=== PATIENT | female | born 1965 | race Caucasian/White ===

== ENCOUNTER 2017-03-28 19:06 | Emergency (ER) | payer OTHER ==
[~2017-03-28] VITALS: Ht 175.3 cm; Wt 127.3 kg
[~2017-03-28 19:06] MED LIST: ALLEGRA180 MG PO; AMITRIPTYLINE25 MG PO; CELEXA40 MG PO; FLONASE0.05 MG/AC NS; IRON; LISINOPRIL10 MG PO; LOESTRIN FE 1/21 TAB PO; MELOXICAM15 MG PO; MULTIPLE VITAMI1 CAP PO; NORCO 325 MG-7.1 TAB PO; PERCOCET 325 MG1 TA2 PO; PROMETHAZINE12.5 M5 PO; TORADOL 10MG TA10 MG PO; VI-C1 CAP PO; VIT D
[2017-03-28] MEDS ORDERED: TOPROL XL 25MG25 MG PO (19:14)
[2017-03-28] MEDS ORDERED: AMITRIPTYLINE H10 M1 PO (19:14)
[2017-03-28] MEDS ORDERED: TOPAMAX 25MG25 M1 PO (19:15)
[2017-03-28] MEDS ORDERED: ZOFRAN 4MG T4 MG/TAB PO (19:15)
[2017-03-28] MEDS ORDERED: CYMBALTA 20MG20 MG PO (19:15)
[2017-03-28] MEDS ORDERED: XANAX .25M0.25 MG/TA PO (19:16)
[2017-03-28] MEDS ORDERED: MOBIC15 MG PO (19:33)
[2017-03-28 19:44] LABS: BASO % 0.2 % (0.0-2.0); EOS # 0.2 (0.0-0.7); EOS % 0.9 % (0-4.0); GRAN # 11.3 (1.4-6.5); GRAN % 65.1 % (42.2-75.2); HEMATOCRIT 49.1 % (37.0-47.0); HEMOGLOBIN 16.3 g/dl (12.5-16.0); LYMPH # 4.5 (1.2-3.4); LYMPH % 25.9 % (20.0-51.0); MEAN CELL VOLUME 89 fl (80.0-100.0); MEAN CORPUSCULAR HEMOGLOBIN 30 pg (27.0-31.0); MEAN CORPUSCULAR HGB CONC 33 g/dl (33.0-37.0); MEAN PLATELET VOLUME 9.7 fl (7.4-10.4); MONO # 1.3 (0.1-0.6); MONO % 7.4 % (1.7-9.3); PLATELET COUNT 361 K/mm3 (130-400); RED BLOOD COUNT 5.53 M/mm3 (4.10-5.30); REDCELL DISTRIBUTION WIDTH-CV 13.2 % (11.5-14.5)
[2017-03-28 19:56] LABS: ALBUMIN 4.9 gm/dL (3.5-5.0); BILIRUBIN,TOTAL 0.9 mg/dL (0.0-1.0); C-REACTIVE PROTEIN 3.3 mg/dL (0.0-0.9); CALCIUM 9.8 mg/dL (8.4-10.2); CREATININE, serum 0.84 mg/dL (0.52-1.25); TOTAL PROTEIN 8.1 gm/dL (6.4-8.2)
[2017-03-28] MEDS ORDERED: NORCO 325 MG-51 TAB PO (21:15)
[2017-03-28 22:38] LABS: COLLECTION METHOD CLEAN CATCH
[2017-03-28 22:49] LABS: HYALINE CAST >12 /lpf; MUCOUS Present /lpf; PH 5 (5-8); SQUAMOUS EPITHELIAL 0-2 /hpf; URINE APPEARANCE Clear; URINE BACTERIA None Seen /hpf; URINE BILIRUBIN Negative (NEGATIVE); URINE BLOOD 3+ (NEGATIVE); URINE CALCIUM OXALATE CRYSTAL Present /hpf; URINE COLOR Yellow; URINE GLUCOSE Negative (NEGATIVE); URINE KETONE Negative (NEGATIVE); URINE LEUKOCYTE ESTERASE Negative (NEGATIVE); URINE NITRATE Negative (NEGATIVE); URINE PROTEIN(semi-quant) Negative (NEGATIVE); URINE RBC >50 /hpf; URINE UROBILINOGEN Negative (NEGATIVE)
[2017-03-28 23:16] VITALS: BP 140/98; PULSE 77; TEMP 97.2
== END 2017-03-28 23:23 | disposition home or self-care (01) ==
LOC: COL.ER 19:06
PROVIDERS: Family Medicine
DX: N20.1 Calculus of ureter (principal); I10 Essential (primary) hypertension; F17.210 Nicotine dependence, cigarettes, uncomplicated; Z87.442 Personal history of urinary calculi
CPT/HCPCS: J1170; J1885; J2405; J7030; Q9967

== ENCOUNTER 2017-04-21 17:45 | Emergency (ER) | payer OTHER ==
[~2017-04-21] VITALS: Ht 175.3 cm; Wt 125.0 kg
[~2017-04-21 17:45] MED LIST changes: +AMITRIPTYLINE H10 M1 PO; +CYMBALTA 20MG20 MG PO; +MOBIC15 MG PO; +NORCO 325 MG-51 TAB PO; +TOPAMAX 25MG25 M1 PO; +TOPROL XL 25MG25 MG PO; +XANAX .25M0.25 MG/TA PO; +ZOFRAN 4MG T4 MG/TAB PO
[2017-04-21 17:55] VITALS: BP 196/106; TEMP 98.1
[2017-04-21 18:27] LABS: BASO % 0.3 % (0.0-2.0); EOS # 0.4 (0.0-0.7); GRAN # 6.8 (1.4-6.5); GRAN % 56.8 % (42.2-75.2); HEMATOCRIT 48.5 % (37.0-47.0); HEMOGLOBIN 15.5 g/dl (12.5-16.0); LYMPH # 3.8 (1.2-3.4); LYMPH % 32.1 % (20.0-51.0); MEAN CELL VOLUME 90 fl (80.0-100.0); MEAN CORPUSCULAR HEMOGLOBIN 29 pg (27.0-31.0); MEAN CORPUSCULAR HGB CONC 32 g/dl (33.0-37.0); MEAN PLATELET VOLUME 9.9 fl (7.4-10.4); MONO # 0.9 (0.1-0.6); MONO % 7.5 % (1.7-9.3); PLATELET COUNT 314 K/mm3 (130-400); RED BLOOD COUNT 5.39 M/mm3 (4.10-5.30); REDCELL DISTRIBUTION WIDTH-CV 13.6 % (11.5-14.5)
[2017-04-21 18:41] LABS: ALBUMIN 4.3 gm/dL (3.5-5.0); BILIRUBIN,TOTAL 0.6 mg/dL (0.0-1.0); CALCIUM 9.4 mg/dL (8.4-10.2); CREATININE, serum 0.75 mg/dL (0.52-1.25); POTASSIUM 4.1 mmol/L (3.4-5.0); TOTAL PROTEIN 7.3 gm/dL (6.4-8.2)
[2017-04-21 20:01] LABS: COLLECTION METHOD CLEAN CATCH
[2017-04-21 20:08] LABS: MUCOUS Present /lpf; PH 5 (5-8); SQUAMOUS EPITHELIAL 0-2 /hpf; URINE APPEARANCE Hazy; URINE BACTERIA None Seen /hpf; URINE BILIRUBIN Negative (NEGATIVE); URINE BLOOD 3+ (NEGATIVE); URINE COLOR Amber; URINE GLUCOSE Negative (NEGATIVE); URINE KETONE Negative (NEGATIVE); URINE LEUKOCYTE ESTERASE Trace (NEGATIVE); URINE NITRATE Negative (NEGATIVE); URINE PROTEIN(semi-quant) 1+ (NEGATIVE); URINE RBC >50 /hpf
[2017-04-21] MEDS ORDERED: OMNICEF 300MG300 MG PO (20:20)
[2017-04-21] MEDS ORDERED: PHENERGAN 25 TA25 MG PO (20:41)
[2017-04-21] MEDS ORDERED: NORCO 325 MG-51 TAB PO (20:41)
[2017-04-21] MEDS ORDERED: ZOFRAN ODT4 MG PO (20:41)
[2017-04-21 20:57] VITALS: PULSE 65
== END 2017-04-21 20:59 | disposition home or self-care (01) ==
LOC: COL.ER 17:45
PROVIDERS: Physician Assistant
DX: N39.0 Urinary tract infection, site not specified (principal); I10 Essential (primary) hypertension; F32.9 Major depressive disorder, single episode, unspecified; Z87.39 Personal history of other diseases of the musculoskeletal system and connective tissue; Z87.442 Personal history of urinary calculi
CPT/HCPCS: J0696; J1170; J2405; J7030

== ENCOUNTER 2017-05-15 00:07 | Emergency (ER) | payer OTHER ==
[~2017-05-15] VITALS: Ht 175.3 cm; Wt 125.0 kg
[~2017-05-15 00:07] MED LIST changes: +OMNICEF 300MG300 MG PO; +PHENERGAN 25 TA25 MG PO; +ZOFRAN ODT4 MG PO
[2017-05-15 00:09] VITALS: BP 111/48; TEMP 97.6
[2017-05-15 00:24] LABS: BASO # 0.1 (0.0-0.2); BASO % 0.3 % (0.0-2.0); EOS % 0.2 % (0-4.0); GRAN # 15.7 (1.4-6.5); GRAN % 81.7 % (42.2-75.2); HEMATOCRIT 50.4 % (37.0-47.0); HEMOGLOBIN 16.5 g/dl (12.5-16.0); LYMPH # 2.3 (1.2-3.4); LYMPH % 11.7 % (20.0-51.0); MEAN CELL VOLUME 89 fl (80.0-100.0); MEAN CORPUSCULAR HEMOGLOBIN 29 pg (27.0-31.0); MEAN CORPUSCULAR HGB CONC 33 g/dl (33.0-37.0); MONO # 1.1 (0.1-0.6); MONO % 5.7 % (1.7-9.3); PLATELET COUNT 338 K/mm3 (130-400); RED BLOOD COUNT 5.65 M/mm3 (4.10-5.30); REDCELL DISTRIBUTION WIDTH-CV 13.6 % (11.5-14.5)
[2017-05-15 00:36] LABS: ALBUMIN 4.7 gm/dL (3.5-5.0); BILIRUBIN,TOTAL 0.6 mg/dL (0.0-1.0); C-REACTIVE PROTEIN 1.4 mg/dL (0.0-0.9); CALCIUM 9.7 mg/dL (8.4-10.2); CREATININE, serum 0.68 mg/dL (0.52-1.25); POTASSIUM 4.5 mmol/L (3.4-5.0); TOTAL PROTEIN 7.9 gm/dL (6.4-8.2)
[2017-05-15] MEDS ORDERED: PHENERGAN 25 TA25 MG PO (01:59)
[2017-05-15 03:00] LABS: COLLECTION METHOD CLEAN CATCH
[2017-05-15 03:07] LABS: MUCOUS Present /lpf; PH 5 (5-8); URINE APPEARANCE Clear; URINE BACTERIA None Seen /hpf; URINE BILIRUBIN Negative (NEGATIVE); URINE BLOOD Negative (NEGATIVE); URINE COLOR Yellow; URINE GLUCOSE Negative (NEGATIVE); URINE KETONE Negative (NEGATIVE); URINE LEUKOCYTE ESTERASE Negative (NEGATIVE); URINE NITRATE Negative (NEGATIVE); URINE PROTEIN(semi-quant) 1+ (NEGATIVE); URINE UROBILINOGEN Negative (NEGATIVE)
[2017-05-15 04:05] VITALS: PULSE 72
[2017-05-15] MEDS ORDERED: FLEXERIL 1010 MG/TAB PO (04:07)
== END 2017-05-15 04:05 | disposition home or self-care (01) ==
LOC: COL.ER 00:07
PROVIDERS: Physician Assistant
DX: K63.89 Other specified diseases of intestine (principal); R10.9 Unspecified abdominal pain; Z87.442 Personal history of urinary calculi
CPT/HCPCS: J1170; J1885; J2360; J2405; J2550; J3010; J7030; Q9967

== ENCOUNTER → 2018-08-17 | Outpatient (CLI) | payer OTHER ==
[~2018-08-17] MED LIST changes: +FLEXERIL 1010 MG/TAB PO
== END ==
LOC: MC.RAD 12:56
DX: Z12.31 Encounter for screening mammogram for malignant neoplasm of breast (principal)

== ENCOUNTER → 2018-08-31 | Outpatient (CLI) | payer OTHER ==
[~2018-08-31] VITALS: Ht 175.3 cm; Wt 125.1 kg
[~2018-08-31] MED LIST changes: +AMITRIPTYLINE H50 M1 PO; +BENADRYL25 M2 PO; +CYMBALTA 60MG60 MG PO; +KAPSPARGO SPRIN50 MG PO; +LEVSIN0.125 M1 PO; +MAG-OX 400400 MG/TAB PO; +NORCO 325 MG-101 TAB PO; +PEPCID 20MG TAB20 MG PO; +PRINZIDE 12.5 M1 TAB PO; +SENNA-S 50 MG-81 TAB PO; +TUMS ULTRA1000 MG PO
[2018-08-31 09:47] VITALS: BP 183/90; PULSE 75
[2018-08-31 11:15] VITALS: BP 155/91; PULSE 71
--- NOTE | 2018-08-31 11:45 | NUR ---
WENT OVER DC INSTRUCTIONS AGAIN WITH PT. AMBULATED TO LOBBY USING HER CANE. PT DROVE HERSELF HOME
== END ==
LOC: COL.RAD 09:04
DX: E04.1 Nontoxic single thyroid nodule (principal)

== ENCOUNTER 2019-03-17 15:06 | Emergency (ER) | payer OTHER ==
[~2019-03-17] VITALS: Ht 175.3 cm; Wt 122.7 kg
[2019-03-17 15:11] VITALS: BP 135/91; TEMP 98.9
[2019-03-17 16:11] LABS: HEMATOCRIT 50.3 % (37.0-47.0); HEMOGLOBIN 16.7 g/dl (12.5-16.0); MEAN CELL VOLUME 91 fl (80.0-100.0); MEAN CORPUSCULAR HEMOGLOBIN 30 pg (27.0-31.0); MEAN CORPUSCULAR HGB CONC 33 g/dl (33.0-37.0); MEAN PLATELET VOLUME 9.8 fl (7.4-10.4); PLATELET COUNT 384 K/mm3 (130-400); RED BLOOD COUNT 5.56 M/mm3 (4.10-5.30); REDCELL DISTRIBUTION WIDTH-CV 12.8 % (11.5-14.5)
[2019-03-17 16:21] LABS: ALBUMIN 4.1 gm/dL (3.5-5.0); BILIRUBIN,TOTAL 0.7 mg/dL (0.0-1.0); C-REACTIVE PROTEIN 2.9 mg/dL (0.0-0.9); CALCIUM 9.4 mg/dL (8.4-10.2); CREATININE, serum 0.79 (0.52-1.25); POTASSIUM 3.5 mmol/L (3.4-5.0); TOTAL PROTEIN 7.3 gm/dL (6.4-8.2)
[2019-03-17] MEDS ORDERED: MASON NATURAL2000 IU (16:28)
[2019-03-17 16:43] LABS: BAND 3 % (0-10); LYMPHOCYTE 18 % (20.0-51.0); NEUTROPHILS 76 % (42.0-75.2); PLATELET ESTIMATE NORMAL (NORMAL)
[2019-03-17 17:04] LABS: COLLECTION METHOD CLEAN CATCH
[2019-03-17 17:18] LABS: MUCOUS Present /lpf; PH 7 (5-8); SQUAMOUS EPITHELIAL 0-2 /hpf; URINE APPEARANCE Hazy; URINE BACTERIA None Seen /hpf; URINE BILIRUBIN Negative (NEGATIVE); URINE BLOOD 1+ (NEGATIVE); URINE COLOR Yellow; URINE GLUCOSE Negative (NEGATIVE); URINE KETONE Negative (NEGATIVE); URINE LEUKOCYTE ESTERASE Negative (NEGATIVE); URINE NITRATE Negative (NEGATIVE); URINE PROTEIN(semi-quant) 1+ (NEGATIVE); URINE RBC 0-2 /hpf; URINE UROBILINOGEN Negative (NEGATIVE)
[2019-03-17] MEDS ORDERED: PHENERGAN 25 TA25 MG PO (17:55)
[2019-03-17] MEDS ORDERED: AMOXICILLIN 8751 TAB PO (17:55)
[2019-03-17] MEDS ORDERED: ZOFRAN 4MG T4 MG/TAB PO (17:55)
[2019-03-17 18:30] VITALS: PULSE 105
== END 2019-03-17 18:36 | disposition home or self-care (01) ==
LOC: COL.ER 15:06
PROVIDERS: Emergency Medicine
DX: K57.32 Diverticulitis of large intestine without perforation or abscess without bleeding (principal); C73 Malignant neoplasm of thyroid gland; I10 Essential (primary) hypertension; K21.9 Gastro-esophageal reflux disease without esophagitis; M79.7 Fibromyalgia; G43.909 Migraine, unspecified, not intractable, without status migrainosus; G25.0 Essential tremor; E66.9 Obesity, unspecified; F17.210 Nicotine dependence, cigarettes, uncomplicated; Z68.39 Body mass index [BMI] 39.0-39.9, adult; Z85.850 Personal history of malignant neoplasm of thyroid; Z87.442 Personal history of urinary calculi; Z87.19 Personal history of other diseases of the digestive system
CPT/HCPCS: J2270; J2405; J7030; Q9967

== ENCOUNTER 2020-01-28 07:30 | Inpatient (IN) | payer OTHER ==
[~2020-01-28] VITALS: Ht 175.3 cm; Wt 128.1 kg
[2020-01-28] VITALS (426 sets, daily range): BP systolic 108–142; BP diastolic 69–95; PULSE 108–140; TEMP 98–98.7; O2SAT 87–100
[~2020-01-28 07:30] MED LIST changes: +AMOXICILLIN 8751 TAB PO; +MASON NATURAL2000 IU
[2020-01-28 07:54] LABS: BASO # 0.1 (0.0-0.2); BASO % 0.3 % (0.0-2.0); EOS # 0.1 (0.0-0.7); EOS % 0.9 % (0-4.0); GRAN % 61.4 % (42.2-75.2); HEMATOCRIT 47.3 % (37.0-47.0); HEMOGLOBIN 15.5 g/dl (12.5-16.0); LYMPH # 4.3 (1.2-3.4); LYMPH % 29.2 % (20.0-51.0); MEAN CELL VOLUME 91 fl (80.0-100.0); MEAN CORPUSCULAR HEMOGLOBIN 30 pg (27.0-31.0); MEAN CORPUSCULAR HGB CONC 33 g/dl (33.0-37.0); MEAN PLATELET VOLUME 10.5 fl (7.4-10.4); MONO # 1.2 (0.1-0.6); MONO % 7.9 % (1.7-9.3); PLATELET COUNT 312 K/mm3 (130-400); RED BLOOD COUNT 5.19 M/mm3 (4.10-5.30); REDCELL DISTRIBUTION WIDTH-CV 13.7 % (11.5-14.5)
[2020-01-28 08:07] LABS: ALBUMIN 4.8 gm/dL (3.5-5.0); BILIRUBIN,TOTAL 1.1 mg/dL (0.0-1.0); C-REACTIVE PROTEIN 2.6 mg/dL (0.0-0.9); CALCIUM 9.7 mg/dL (8.4-10.2); CREATININE, serum 0.82 (0.52-1.25); POTASSIUM 3.3 mmol/L (3.4-5.0); TOTAL PROTEIN 8.1 gm/dL (6.4-8.2)
[2020-01-28 11:04] LABS: COLLECTION METHOD CLEAN CATCH
[2020-01-28 11:57] LABS: MUCOUS Present /lpf; PH 6 (5-8); SQUAMOUS EPITHELIAL 0-2 /hpf; URINE APPEARANCE Clear; URINE BACTERIA None Seen /hpf; URINE BILIRUBIN Negative (NEGATIVE); URINE BLOOD 3+ (NEGATIVE); URINE COLOR Yellow; URINE GLUCOSE Negative (NEGATIVE); URINE KETONE Trace (NEGATIVE); URINE LEUKOCYTE ESTERASE Negative (NEGATIVE); URINE NITRATE Negative (NEGATIVE); URINE PROTEIN(semi-quant) 1+ (NEGATIVE); URINE RBC >50 /hpf
--- NOTE | 2020-01-28 13:37 | NUR ---
PT ARRIVED TO ICU 2 FROM ED WITH AFIB RVR. PT TRANSFERED TO BED. PT SHOWING AFIB 130'S ON MONTIOR. OTHER VITALS STABLE. PT HAS DILT RUNNING AT 15ML/HR AND HEPARIN RUNNING AT 10ML/HR. PT DENIES CP OR PALPATATIONS. PT ORIENTED TO ROOM AND FLOOR. PT INSTURCTED TO CALL WITH ALL NEEDS. WILL CONTINUE TO MONITOR.
[2020-01-28] MEDS ORDERED: COLACE 100100 MG/CAP PO (13:41)
--- NOTE | 2020-01-28 13:55 | NUR ---
1350: NOTIFIED OF ARRIVAL. NOTIFIED OF HR 120-140 OTHER VSS. INSTRUCTED TO NOTIFY . 1355: NOTIFIED OF HR. ORDERS RECEIVED FOR IV DIGOXIN.
[2020-01-29] VITALS (969 sets, daily range): BP systolic 109–147; BP diastolic 66–106; PULSE 82–109; TEMP 97.9–98.4; O2SAT 67–100
--- NOTE | 2020-01-29 05:08 | NUR ---
PT IN BED. HEART RATE IRREGULAR. LUNGS CLEAR THOUGH PT SEEMS TO GET DYSPNEIC EASILY. HEART RATE BELOW 100 bpm WHEN SLEEPING AND LESS THAN 100 bpm WHEN AWAKE OR MOVING.
[2020-01-29 09:00] LABS: BASO % 0.3 % (0.0-2.0); EOS # 0.1 (0.0-0.7); EOS % 1.2 % (0-4.0); GRAN # 5.4 (1.4-6.5); GRAN % 56.3 % (42.2-75.2); HEMATOCRIT 41.5 % (37.0-47.0); LYMPH # 3.3 (1.2-3.4); MEAN CELL VOLUME 92 fl (80.0-100.0); MEAN CORPUSCULAR HEMOGLOBIN 29 pg (27.0-31.0); MEAN CORPUSCULAR HGB CONC 32 g/dl (33.0-37.0); MEAN PLATELET VOLUME 10.4 fl (7.4-10.4); MONO # 0.8 (0.1-0.6); MONO % 7.9 % (1.7-9.3); PLATELET COUNT 229 K/mm3 (130-400)
[2020-01-29 09:01] LABS: HEMOGLOBIN 13.2 g/dl (12.5-16.0)
[2020-01-29 09:13] LABS: CALCIUM 8.7 mg/dL (8.4-10.2); CREATININE, serum 0.71 (0.52-1.25); POTASSIUM 3.6 mmol/L (3.4-5.0)
--- NOTE | 2020-01-29 09:40 | NUR ---
PT heparin level 0.38 which is with in goal range. No changes to the heparin drip will be made at this time.
--- NOTE | 2020-01-29 11:25 | NUR ---
SW met with patient to complete intake. Patient states that she lives alone. Patient provides that she does utilize a cane for walking, and is independent with ADL's, PCP is Dr. River, pharmacy is [facility], and is able to afford her medications. Patient provides that she does not have DPOA-HC and does not wish to appoint anyone at this time. Patient provided that she would like to only have her friend Vianney [phone] if there is any emergency. Patient YESIKA will continue to follow. SW met with nurse and nurse provided that patient will be having a procedure tomorrow.
[2020-01-29 15:31] LABS: HEMATOCRIT 35.1 % (37.0-47.0); HEMOGLOBIN 11.1 g/dl (12.5-16.0)
--- NOTE | 2020-01-29 16:06 | NUR ---
PT heparin result is 0.31 not requiring any titration at this time due to being at "goal". Will recheck at 2100.
--- NOTE | 2020-01-29 20:00 | NUR ---
PT HAVING 10/10 LLQ PAIN, PRN MORPHINE GIVEN AT THIS TIME.
--- NOTE | 2020-01-29 20:09 | NUR ---
2005: PT NAUSEOUS FROM PAIN IN LLQ, PRN ZOFRAN GIVEN. PT EMESIS X2, SMALL AMOUNT OF PHLEGM NOTED TO BASIN. 2099: PT CONTINUES TO HAVE 10/10 LLQ PAIN. PRN DILUADID GIVEN. 2199: PT RESTING IN BED AT THIS TIME WITH EYES CLOSED.
[2020-01-30] VITALS (846 sets, daily range): BP systolic 129–157; BP diastolic 74–114; PULSE 62–108; TEMP 97.5–98.5; O2SAT 73–100
--- NOTE | 2020-01-30 04:59 | NUR ---
LAB CALLED GALDINO BRISENO NOT DRAWN FOR 399, LAB WILL BE DOWN TO DRAW
[2020-01-30 05:49] LABS: BASO % 0.2 % (0.0-2.0); EOS # 0.1 (0.0-0.7); EOS % 1.2 % (0-4.0); GRAN # 5.8 (1.4-6.5); GRAN % 60.9 % (42.2-75.2); HEMATOCRIT 40.6 % (37.0-47.0); LYMPH # 2.6 (1.2-3.4); LYMPH % 27.4 % (20.0-51.0); MEAN CELL VOLUME 94 fl (80.0-100.0); MEAN CORPUSCULAR HEMOGLOBIN 30 pg (27.0-31.0); MEAN CORPUSCULAR HGB CONC 32 g/dl (33.0-37.0); MEAN PLATELET VOLUME 10.8 fl (7.4-10.4); MONO # 0.9 (0.1-0.6); MONO % 9.9 % (1.7-9.3); PLATELET COUNT 196 K/mm3 (130-400); RED BLOOD COUNT 4.34 M/mm3 (4.10-5.30); REDCELL DISTRIBUTION WIDTH-CV 13.8 % (11.5-14.5)
[2020-01-30 06:04] LABS: CALCIUM 8.6 mg/dL (8.4-10.2); CREATININE, serum 0.57 (0.52-1.25); POTASSIUM 3.9 mmol/L (3.4-5.0)
--- NOTE | 2020-01-30 14:56 | NUR ---
Report called to SHANKAR Atwood
--- NOTE | 2020-01-30 15:00 | NUR ---
Pt transferred to floor by ICU nurse. Oriented to room, wants to rest and take a nap, denies needs, will continue to monitor.
--- NOTE | 2020-01-30 19:08 | NUR ---
Pt has rested over shift, resting in bed, denies needs, will give bedside shift report to nightshift nurse who will resume care.
[2020-01-31] VITALS (12 sets, daily range): BP systolic 129–164; BP diastolic 82–106; PULSE 70–121; TEMP 97.4–98.4
--- NOTE | 2020-01-31 00:23 | NUR ---
Pt resting in bed, assessment completed and medications given per MAY. pt reporting pain in the lower back and left side rating an 8 out of 10. gave norco prn. pain did not improve and pt felt it was hard to breathe from the pain. oxygen sat 95% on room air, gave diludid prn for pain. lung sounds are clear in all lobes. heart sounds are regular and normal sinus on tele. pt has urinated small amount, strained and no stone present. no other needs at this time, will continue to monitor.
--- NOTE | 2020-01-31 06:24 | NUR ---
pt reporting pain throughout the night, mostly on the left side and lower back. gave diludid and norco prn per MAY. started heparin drip via orders and protocol. pt voided during the night, urine strained and no stone present. no other needs at this time, will continue to monitor.
--- NOTE | 2020-01-31 08:00 | NUR ---
Shift assessment completed. Telemetry on, AR regular. Rt forearm IV, NS @ 75mL/hr, Heparin 16.5mg. Pt reports pain 9/10 to left flank. BP 164/100, reported to primary nurse. Pt voided 600mL, dark yellow, no stones strained.
--- NOTE | 2020-01-31 08:00 | NUR ---
pt assessment completed and charted, medications administered per may. Pt A&O, independent in room, on room air, breathing is labored, reports SOB d/t pain. Pt rating pain 10/10 to Lt sd radiating to mid back. PRN norco and dilaudid administered per may. Pt has RWR IV w/ NS @ 75ml/hr and hep gtt @ 16.5 ml/hr. LS cta, pulses strong bilaterally, BS active, pt has been NPO for procedure.
--- NOTE | 2020-01-31 09:13 | NUR ---
Initial visit; Patient thanked Auto Fleet Maintenance Manager for looking in on her and keeping her in Auto Fleet Maintenance Manager's prayers.
[2020-01-31 09:27] LABS: BASO % 0.2 % (0.0-2.0); EOS # 0.2 (0.0-0.7); EOS % 2.2 % (0-4.0); GRAN # 7.6 (1.4-6.5); GRAN % 68.7 % (42.2-75.2); HEMOGLOBIN 13.3 g/dl (12.5-16.0); LYMPH # 2.2 (1.2-3.4); LYMPH % 20.1 % (20.0-51.0); MEAN CELL VOLUME 94 fl (80.0-100.0); MEAN CORPUSCULAR HEMOGLOBIN 30 pg (27.0-31.0); MEAN CORPUSCULAR HGB CONC 32 g/dl (33.0-37.0); MEAN PLATELET VOLUME 10.5 fl (7.4-10.4); MONO # 0.9 (0.1-0.6); MONO % 8.5 % (1.7-9.3); PLATELET COUNT 210 K/mm3 (130-400); RED BLOOD COUNT 4.45 M/mm3 (4.10-5.30); REDCELL DISTRIBUTION WIDTH-CV 13.8 % (11.5-14.5)
--- NOTE | 2020-01-31 09:30 | NUR ---
Pt down for procedure at this time, pt was not ready d/t procedure originally being scheduled for 1629.
[2020-01-31 09:35] LABS: CREATININE, serum 0.64 (0.52-1.25); POTASSIUM 4.2 mmol/L (3.4-5.0)
[2020-01-31] MEDS ORDERED: PYRIDIUM 100MG100 MG PO (09:42)
[2020-01-31 10:36] LABS: INR 1.2 (0.8-3.0)
--- NOTE | 2020-01-31 11:00 | NUR ---
Pt arrived to room, assisted to the bathroom voided 200mL gross hematuria. Urine strained, no stones found. Pt assisted to bed pt reports 07/30 to the LLQ of abdomen. Post op routine vital signs initiated. Reporting off to primary nurse. O2 on 2L per N/C.
--- NOTE | 2020-01-31 11:04 | NUR ---
Pt back from cysto procedure, post op vitals monitoring in progress. Pt A&O.
--- NOTE | 2020-01-31 13:33 | NUR ---
Pt using bedside commode, crying in pain, [place] PRN administered per may. Discussed w/ Dr. Waite who will review meds. Pt describes pain as "I feel like I'm being stabbed". Will continue to monitor.
--- NOTE | 2020-01-31 14:30 | NUR ---
This nurse contacted HAMAMD Norris and Dr. Waite again about pts pain. pt sitting on EOB, rocking back and forth and moaning. Toradol added to MAR, administered, per pt "Toradol usually helps". Will continue to monitor.
--- NOTE | 2020-01-31 15:40 | NUR ---
Pt laying in bed, states pain is still there but is feeling a little better. Pt no longer moaning or rocking back and forth. Pt appears to be more calm, rating pain 8/10.
--- NOTE | 2020-01-31 20:00 | NUR ---
PT IS RESTING IN BED DURING BEDSIDE SHIFT REPORT. PT DENIES NEEDS AT THIS TIME. ASSESSMENT COMPLETED. PT'S VSS STABLE. PAIN IS "CREEPING" UP AGAIN AT THIS TIME. INFORMED PT TO USE CALL LIGHT AND LET ME KNOW WHEN SHE WILL NEED PAIN MANAGEMENT. NO FURTHER CONCERNS AT THIS TIME. WILL CONTINUE TO MONITOR. PT CALL LIGHT WITHIN REACH.
[2020-02-01 03:19] VITALS: BP 157/68; PULSE 117; TEMP 98.3
[2020-02-01 06:09] LABS: BASO % 0.2 % (0.0-2.0); EOS # 0.1 (0.0-0.7); EOS % 0.6 % (0-4.0); GRAN % 72.1 % (42.2-75.2); HEMATOCRIT 40.8 % (37.0-47.0); HEMOGLOBIN 12.9 g/dl (12.5-16.0); LYMPH # 1.8 (1.2-3.4); LYMPH % 16.1 % (20.0-51.0); MEAN CELL VOLUME 94 fl (80.0-100.0); MEAN CORPUSCULAR HEMOGLOBIN 30 pg (27.0-31.0); MEAN CORPUSCULAR HGB CONC 32 g/dl (33.0-37.0); MONO # 1.2 (0.1-0.6); MONO % 10.7 % (1.7-9.3); PLATELET COUNT 190 K/mm3 (130-400); RED BLOOD COUNT 4.33 M/mm3 (4.10-5.30); REDCELL DISTRIBUTION WIDTH-CV 13.4 % (11.5-14.5)
[2020-02-01 06:22] LABS: CALCIUM 8.8 mg/dL (8.4-10.2); CREATININE, serum 0.76 (0.52-1.25); MAGNESIUM 1.8 mg/dL (1.6-2.3); POTASSIUM 3.9 mmol/L (3.4-5.0)
[2020-02-01 06:31] LABS: INR 1.3 (0.8-3.0); PROTHROMBIN TIME 15.1 SECONDS (9.7-12.8)
[2020-02-01 07:06] VITALS: BP 128/78; PULSE 119; TEMP 98.7
--- NOTE | 2020-02-01 08:33 | NUR ---
pt assessment completed and charted, medications administered per may. Pt laying in bed, appeared calm upon entry. Pt started to moan and cry more while this nurse was in the room. Pt requesting pain medication, rating pain 7/10 "jumping to an 8", described as sharp and radiating from left side to left mid back. [place] PRN administered per may. LS cta, Heart irregular, pt back in afib, tachy. Pulses strong bilaterally, BS active X4, no edema noted. RWR INT IV flushes, minimal drainage noted but flushes well. No further needs at this time.
[2020-02-01 11:13] VITALS: BP 127/71; BP 97/71; PULSE 85; TEMP 98.4
--- NOTE | 2020-02-01 11:28 | NUR ---
Sotalol dose increased d/t pt converting back to afib, administered per may. Pt laying in bed, appears calm, minimal pain. Currently rating pain at 5/10, denies need for pain medication at this time. Call light within reach.
--- NOTE | 2020-02-01 11:51 | NUR ---
Front Desk Attendant attended clinical rounds with the team and patient is not ready for discharge today. SW met with patient who plans to return home upon discharge. YESIKA spoke with RN, Elise who advised patient has been independent in her room. SW will continue to follow.
[2020-02-01 15:28] VITALS: BP 114/88; PULSE 137; TEMP 98
--- NOTE | 2020-02-01 18:32 | NUR ---
1545: pt called, rating pain 6/10 d/t her getting up and going to the bathroom. Pt states she "is having some twinge of pain". [place] PRN administered per may. Pt appears to be doing much better today and pain control is much better today that yesterday. Warm compress has been used off and on throughout day as well.
[2020-02-01 22:02] VITALS: BP 126/77; PULSE 139; TEMP 98.5
[2020-02-02] VITALS (22 sets, daily range): BP systolic 126–169; BP diastolic 82–125; PULSE 53–147; TEMP 98.2–98.7
[2020-02-02 06:47] LABS: BASO % 0.1 % (0.0-2.0); EOS # 0.1 (0.0-0.7); EOS % 1.8 % (0-4.0); GRAN # 3.9 (1.4-6.5); GRAN % 52.1 % (42.2-75.2); HEMATOCRIT 40.4 % (37.0-47.0); HEMOGLOBIN 12.8 g/dl (12.5-16.0); LYMPH # 2.5 (1.2-3.4); LYMPH % 33.6 % (20.0-51.0); MEAN CELL VOLUME 94 fl (80.0-100.0); MEAN CORPUSCULAR HEMOGLOBIN 30 pg (27.0-31.0); MEAN CORPUSCULAR HGB CONC 32 g/dl (33.0-37.0); MEAN PLATELET VOLUME 11.2 fl (7.4-10.4); MONO # 0.9 (0.1-0.6); MONO % 12.1 % (1.7-9.3); PLATELET COUNT 224 K/mm3 (130-400); REDCELL DISTRIBUTION WIDTH-CV 13.8 % (11.5-14.5)
[2020-02-02 06:59] LABS: INR 1.3 (0.8-3.0); PROTHROMBIN TIME 14.9 SECONDS (9.7-12.8)
[2020-02-02 07:00] LABS: CALCIUM 8.8 mg/dL (8.4-10.2); CREATININE, serum 0.76 (0.52-1.25); MAGNESIUM 1.9 mg/dL (1.6-2.3); POTASSIUM 4.2 mmol/L (3.4-5.0)
--- NOTE | 2020-02-02 07:24 | NUR ---
Pt had uneventful night, only required pain medication twice. Pt will be having cardioversion today, no other concerns. Report given to SHANKAR Daniel and student.
--- NOTE | 2020-02-02 09:06 | NUR ---
PATIENT DOWN AT ADMINISTRATIVE REPRESENTATIVE
--- NOTE | 2020-02-02 13:38 | NUR ---
Primary nurse was assisted with [id number] patient care by [employer] student Beena Tony and [employer] instructor Nancy Melvin RN-.
--- NOTE | 2020-02-02 18:22 | NUR ---
PATIENT HAD AN EVENTFUL DAY. PATIENT'S BLOOD PRESSURE WAS VERY ELEVATED AND HER AFIB RATE WAS IN THE 140'S. DOCTORS WERE AWARE OF THIS AND ORDERED MEDICATIONS ACCORDINGLY. SHE WENT FOR A CARDIOVERSION THAT WAS ATTEMPTED TWICE AND NO LUCK WAS PERFORMED. PATIENTS BLOOD PRESSURE REMAINS ELEVATED AND DOCTORS ARE AWARE BUT ARE NOT GOING TO TRANSFER THE PATIENT TO ICU. PAIN MEDICATIONS WERE GIVEN TO THE PATIENT WHEN SHE WAS HAVING PAIN IN HER ABD THAT RADIATED TO HER SIDE. PAIN MEDICATIONS WERE GIVEN AND HELPED WITH HER PAIN. PATIENT IS NOW ON AMIODARONE INSTEAD OF SOTALOL. PATIENT'S URINE REMAINS BLOODY AT THIS TIME. UA WAS SENT TO LAB. PATIENT HAS REMAINED FREE OF HEADACHE, DIZZINESS, SHORTNESS OF BREATHE, AND CHEST PAIN. PATIENT IS RESTING IN HER BED AT THIS TIME. CALL LIGHT IN REACH. WILL REPORT OFF TO MOLD SPRAYER.
[2020-02-02 18:50] LABS: COLLECTION METHOD CLEAN CATCH
[2020-02-02 18:59] LABS: PH 6 (5-8); SQUAMOUS EPITHELIAL None Seen /hpf; URINE APPEARANCE Cloudy; URINE BACTERIA None Seen /hpf; URINE BILIRUBIN Negative (NEGATIVE); URINE BLOOD 3+ (NEGATIVE); URINE COLOR Amber; URINE GLUCOSE Negative (NEGATIVE); URINE KETONE Negative (NEGATIVE); URINE LEUKOCYTE ESTERASE Negative (NEGATIVE); URINE NITRATE Negative (NEGATIVE); URINE PROTEIN(semi-quant) 2+ (NEGATIVE); URINE RBC >50 /hpf
[2020-02-03] VITALS (7 sets, daily range): BP systolic 132–192; BP diastolic 75–130; PULSE 64–151; TEMP 98.3–99.1
[2020-02-03 07:17] LABS: BASO % 0.4 % (0.0-2.0); EOS # 0.1 (0.0-0.7); EOS % 2.4 % (0-4.0); GRAN # 3.8 (1.4-6.5); GRAN % 70.8 % (42.2-75.2); HEMATOCRIT 43.2 % (37.0-47.0); HEMOGLOBIN 13.8 g/dl (12.5-16.0); LYMPH # 0.7 (1.2-3.4); LYMPH % 13.4 % (20.0-51.0); MEAN CELL VOLUME 92 fl (80.0-100.0); MEAN CORPUSCULAR HEMOGLOBIN 29 pg (27.0-31.0); MEAN CORPUSCULAR HGB CONC 32 g/dl (33.0-37.0); MEAN PLATELET VOLUME 10.6 fl (7.4-10.4); MONO # 0.7 (0.1-0.6); MONO % 12.8 % (1.7-9.3); PLATELET COUNT 218 K/mm3 (130-400); REDCELL DISTRIBUTION WIDTH-CV 13.7 % (11.5-14.5)
[2020-02-03 07:29] LABS: INR 1.7 (0.8-3.0); PROTHROMBIN TIME 19.4 SECONDS (9.7-12.8)
[2020-02-03 07:32] LABS: CALCIUM 9.1 mg/dL (8.4-10.2); CREATININE, serum 0.72 (0.52-1.25); MAGNESIUM 1.9 mg/dL (1.6-2.3); POTASSIUM 4.2 mmol/L (3.4-5.0)
--- NOTE | 2020-02-03 07:54 | NUR ---
Pt had an uneventful night, however, diastolic bp did elevate to 123 just before 3AM. The hospitalist did order some hydralazine prn to assist in bringing that pressure down. Pt was given the hydralazine at 0405 and pressures still remain high. Cardiology was notified. Pt pain did increase so morphine was utilized. Report was given to SHANKAR Perdue who will continue the care of this patient.
--- NOTE | 2020-02-03 08:55 | NUR ---
Patient has had nausea and vomitting, still experiencing stomach pain. Will not be completing PFT today. John Phillip, COMMUNITY SPECIALIST
--- NOTE | 2020-02-03 10:47 | NUR ---
Pt awake upon entry, has C/O pain 10/10, medications were given for relief, shift assessment complete, left Pt call light in reach, bed in lowest position.
--- NOTE | 2020-02-03 13:25 | NUR ---
Primary nurse was assisted with [phone] patient care by [employer] student Beena Tony and [employer] instructor Nancy Melvin RN-.
--- NOTE | 2020-02-03 19:24 | NUR ---
Pt resting in the room, is having a hard time keeping her pain under control, have been alternating her morphene and norco to try and get better control best today 05/02, at shift change stated 08/30. no other issues / complaints today. VS have remained stable.
--- NOTE | 2020-02-03 20:20 | NUR ---
Pt assessment completed and documented. Pt resting in bed at this time. Alert and oriented x4. Complaints of left side pain that radiates to her back. Pt states pain is slowly getting better since surgery. PRN morphine given per orders. INT to right AC CDI. Pt denies any other needs/concerns. Call light within reach. Will continue to monitor
[2020-02-04] VITALS (7 sets, daily range): BP systolic 127–162; BP diastolic 70–103; PULSE 56–105; TEMP 98.9–99.9
--- NOTE | 2020-02-04 05:10 | NUR ---
Pt rested intermittently overnight. PRN morphine and norco given per orders for head, left side and left back pain. Pt currently resting in bed. Denies any needs/concerns. Call light within reach
--- NOTE | 2020-02-04 06:45 | NUR ---
REPORT GIVEN TO SHANKAR FISHMAN
[2020-02-04 06:50] LABS: BASO % 0.2 % (0.0-2.0); EOS % 0.5 % (0-4.0); GRAN # 3.9 (1.4-6.5); GRAN % 70.6 % (42.2-75.2); HEMATOCRIT 40.9 % (37.0-47.0); HEMOGLOBIN 13.2 g/dl (12.5-16.0); LYMPH # 0.7 (1.2-3.4); LYMPH % 12.7 % (20.0-51.0); MEAN CELL VOLUME 92 fl (80.0-100.0); MEAN CORPUSCULAR HEMOGLOBIN 30 pg (27.0-31.0); MEAN CORPUSCULAR HGB CONC 32 g/dl (33.0-37.0); MEAN PLATELET VOLUME 10.4 fl (7.4-10.4); MONO # 0.9 (0.1-0.6); MONO % 15.6 % (1.7-9.3); PLATELET COUNT 197 K/mm3 (130-400); RED BLOOD COUNT 4.44 M/mm3 (4.10-5.30); REDCELL DISTRIBUTION WIDTH-CV 13.7 % (11.5-14.5)
[2020-02-04 07:07] LABS: INR 2.3 (0.8-3.0); PROTHROMBIN TIME 25.5 SECONDS (9.7-12.8)
[2020-02-04 07:08] LABS: CALCIUM 8.7 mg/dL (8.4-10.2); CREATININE, serum 0.69 (0.52-1.25); MAGNESIUM 1.8 mg/dL (1.6-2.3); POTASSIUM 3.5 mmol/L (3.4-5.0)
--- NOTE | 2020-02-04 09:50 | NUR ---
Pt awake and alert has C/O pain, medications were given earlier, shift assessments complete, left Pt call light in reach, bed in lowest position.
--- NOTE | 2020-02-04 20:42 | NUR ---
PT IN BED WITH HOB ELEVATED TO 30 DEGREES, HAS C/O HEADACHE RATED AT 7/10. PT HAD PRN PAIN MEDICATION EARLIER NOT TIME YET. PT'S HEART RATE >120 GAVE IV METOPROLOL AND RECHECK PULSE WITH PULSE OX. PULSE WAS 87. ALSO HEART BEAT IRREGULAR. PT HAS NO FURTHER NEEDS AT THIS TIME, CALL LIGHT WITHIN REACH AND PERSONAL BELONGINGS.
[2020-02-05 04:28] VITALS: BP 143/104; PULSE 54; TEMP 98.2
[2020-02-05 05:55] LABS: GRAN # 2.7 (1.4-6.5); GRAN % 67.4 % (42.2-75.2); HEMATOCRIT 43.4 % (37.0-47.0); HEMOGLOBIN 14.1 g/dl (12.5-16.0); LYMPH # 0.9 (1.2-3.4); LYMPH % 23.4 % (20.0-51.0); MEAN CELL VOLUME 90 fl (80.0-100.0); MEAN CORPUSCULAR HEMOGLOBIN 29 pg (27.0-31.0); MEAN CORPUSCULAR HGB CONC 33 g/dl (33.0-37.0); MEAN PLATELET VOLUME 10.4 fl (7.4-10.4); MONO # 0.3 (0.1-0.6); MONO % 8.7 % (1.7-9.3); PLATELET COUNT 218 K/mm3 (130-400); REDCELL DISTRIBUTION WIDTH-CV 13.7 % (11.5-14.5)
[2020-02-05 06:00] LABS: INR 2.5 (0.8-3.0); PROTHROMBIN TIME 28.3 SECONDS (9.7-12.8)
[2020-02-05 06:06] LABS: CREATININE, serum 0.58 (0.52-1.25); POTASSIUM 3.9 mmol/L (3.4-5.0)
--- NOTE | 2020-02-05 07:22 | NUR ---
PT SLEPT FOR A WHILE DURING THE NIGHT WITHOUT ANY ISSUE. AROUND 0500 PT WAS AWAKENED AND HAD C/O PAIN. PAIN MEDICATION WAS GIVEN AND ABOUT AN HOUR LATER MORE PAIN MEDICATION GIVEN. PT SAID THAT SHE HAS NOT BEEN ABLE TO GET THE PAIN UNDER CONTROL. NO FURTHER NEEDS CALL LIGHT WITHIN REACH.
[2020-02-05 09:00] VITALS: BP 147/69; PULSE 73; TEMP 98.3
--- NOTE | 2020-02-05 09:50 | NUR ---
Pt awake and alert this morning, has C/O pain 5/10, tolerable. Shift assessments complete, left Pt call light in reach, bed in lowest position.
[2020-02-05 11:31] VITALS: BP 148/88; PULSE 78; TEMP 99.9
[2020-02-05 15:50] VITALS: BP 146/102; PULSE 77; TEMP 98.3
--- NOTE | 2020-02-05 19:00 | NUR ---
Pt resting in the room, currently on room air, has had C/o pain during the day and medications were given for relief with good results. no other issues noted. VS have remained stable.
[2020-02-05 19:59] VITALS: BP 122/94; PULSE 51; TEMP 97.6
--- NOTE | 2020-02-05 20:30 | NUR ---
Initial shift assessment done- states left flank pain 2/10 at this time- states she should be going home tomorrow and then will have an outpt cardioversion when covid is negative. tele on- afib,
[2020-02-05 23:16] VITALS: BP 121/75; PULSE 62; TEMP 97.4
[2020-02-06 05:04] VITALS: BP 130/70; PULSE 88; TEMP 98.2
--- NOTE | 2020-02-06 05:06 | NUR ---
Quiet night- medicated for pain x1 , no SOB, no fevers. VSS
[2020-02-06 07:19] LABS: BASO % 0.1 % (0.0-2.0); GRAN # 4.9 (1.4-6.5); GRAN % 63.7 % (42.2-75.2); HEMATOCRIT 43.4 % (37.0-47.0); HEMOGLOBIN 13.9 g/dl (12.5-16.0); LYMPH # 1.9 (1.2-3.4); LYMPH % 24.4 % (20.0-51.0); MEAN CELL VOLUME 91 fl (80.0-100.0); MEAN CORPUSCULAR HEMOGLOBIN 29 pg (27.0-31.0); MEAN CORPUSCULAR HGB CONC 32 g/dl (33.0-37.0); MEAN PLATELET VOLUME 10.2 fl (7.4-10.4); MONO # 0.9 (0.1-0.6); MONO % 11.3 % (1.7-9.3); PLATELET COUNT 231 K/mm3 (130-400); RED BLOOD COUNT 4.76 M/mm3 (4.10-5.30); REDCELL DISTRIBUTION WIDTH-CV 13.5 % (11.5-14.5)
[2020-02-06 07:27] LABS: CALCIUM 9.1 mg/dL (8.4-10.2); CREATININE, serum 0.7 (0.52-1.25); POTASSIUM 3.7 mmol/L (3.4-5.0)
[2020-02-06 07:38] LABS: INR 2.4 (0.8-3.0)
[2020-02-06 08:00] VITALS: BP 164/82; PULSE 94; TEMP 97.8
--- NOTE | 2020-02-06 09:51 | NUR ---
PT UP WITH ASSIST. REPORTING PAIN 7/10 TO LEFT FLANK, PO MEDS GIVEN ORDERED. PT ANXIOUS. VSS, MILD NAUSEA REPORTED IV ZOFRAN GIVEN PER ORDERS. PT IS CURRENTLY NPO. WILL CHECK WITH RICARDO CUEVA FOR REASON AND MAKE ADJUSTMENTS APPROPRIATE.
[2020-02-06 12:57] VITALS: BP 156/88; PULSE 110
[2020-02-06] MEDS ORDERED: AMOXICILLIN 8751 TAB PO (13:09)
[2020-02-06] MEDS ORDERED: COUMADIN 2MG2 MG/TAB PO (13:09)
[2020-02-06] MEDS ORDERED: PACERONE200 MG PO (13:10)
[2020-02-06] MEDS ORDERED: HYDROCORTISON28.4 GM TP (13:11)
[2020-02-06] MEDS ORDERED: PROTONIX 40MG T40 MG PO (13:11)
[2020-02-06] MEDS ORDERED: TYLENOL 325MG325 MG PO (13:11)
[2020-02-06] MEDS ORDERED: NORVASC 5MG5 MG/TAB PO (13:13)
[2020-02-06] MEDS ORDERED: LOPRESSOR100 MG PO (13:13)
[2020-02-06] MEDS ORDERED: DECADRON6 MG PO (13:15)
[2020-02-06] MEDS ORDERED: NORCO 325 MG-101 TAB PO (13:15)
[2020-02-06] MEDS ORDERED: ZOFRAN 4MG T4 MG/TAB PO (13:15)
--- NOTE | 2020-02-06 16:58 | NUR ---
DISCHARGE INSTRUCTIONS PROVIDED TO PT, THEN TRANSPORTED HOME WITH [facility].
--- NOTE | 2020-02-06 17:14 | NUR ---
YESIKA collaborated with SHANKAR Cai as patient is ready to be discharged today and does not have a ride home. Patient is currently COVID positive. YESIKA contacted [facility] who advised they will not transport a patient who is COVID positive. YESIKA contacted patient to review options. YESIKA advised [facility] cannot take her home. YESIKA inquired about patient's friend, Vianney but patient states she will not call her friend to bother her as her friend has her own things going on. Patient is firm Vianney is not an option. Patient states she cannot call anyone from work because if they come get her, they will have to quarantine. Patient states she has a car, but it is not currently driveable. SW reviewed the option of private paying for an ambulance but patient declines this option as well. Patient states she will walk home. YESIKA informed patient that if she chooses to walk home, she will need to talk with Risk Management and provided patient with Blanka's phone number. YESIKA then contacted [facility] and spoke with Socrates, Dispatcher who ran this case by his front line supervisor. Socrates states they will take patient home as a courtesy. Socrates confirmed multiple times with YESIKA that patient will not be billed and will not owe anything for a ride home. Socrates states SW will not need to complete normal EMS forms as they will not bill insurance or patient. Socrates states he will have patient sign consent form upon arrival. YESIKA updated Trell CHAPARRO as well as Risk Management and Optomechanical Technician. Patient will return home by [facility], who have advised they will take patient home (here in [place]) as a courtesy, at no cost to the patient. YESIKA also updated Hyperbaric Nurse. No additional needs at this time.
== END 2020-02-06 17:00 | disposition home or self-care (01) | DRG 668 ==
LOC: COL.ER 07:30 → ICU 10:02 → MEDICAL 01-30 15:37 → PEDS 02-04 14:54
PROVIDERS: Family Medicine; Hospitalist; Internal Medicine; Physician Assistant; Urology; ADMIT Student in an Organized Health Care Education/Training Program
PROC: 5A2204Z Restoration of Cardiac Rhythm, Single (ICD-10-PCS; 2020-01-30)
PROC: 0TC78ZZ Extirpation of Matter from Left Ureter, Via Natural or Artificial Opening Endoscopic (ICD-10-PCS; principal; 2020-01-31 16:30)
PROC: BT1F1ZZ Fluoroscopy of Left Kidney, Ureter and Bladder using Low Osmolar Contrast (ICD-10-PCS; 2020-01-31 16:30)
DX: N13.2 Hydronephrosis with renal and ureteral calculous obstruction (principal); U07.1 COVID-19; R04.2 Hemoptysis; K57.92 Diverticulitis of intestine, part unspecified, without perforation or abscess without bleeding; J90 Pleural effusion, not elsewhere classified; J98.11 Atelectasis; I48.91 Unspecified atrial fibrillation; J32.9 Chronic sinusitis, unspecified; E87.6 Hypokalemia; I10 Essential (primary) hypertension; K21.9 Gastro-esophageal reflux disease without esophagitis; R73.9 Hyperglycemia, unspecified; F17.210 Nicotine dependence, cigarettes, uncomplicated; F41.9 Anxiety disorder, unspecified; R91.8 Other nonspecific abnormal finding of lung field
CPT/HCPCS: 99223-AI; 99232-AI; 99233-AI; 99239; C1769; J0360; J0690; J1160; J1170; J1644; J1885; J2270; J2405; J2543; J2550; J2704; J3010; J7030; J7120; J8540; Q9967

== ENCOUNTER 2020-03-06 07:30 | Day surgery (SDC) | payer OTHER ==
[~2020-03-06] VITALS: Ht 175.3 cm; Wt 120.2 kg
[~2020-03-06 07:30] MED LIST changes: +COLACE 100100 MG/CAP PO; +COUMADIN 2MG2 MG/TAB PO; +DECADRON6 MG PO; +HYDROCORTISON28.4 GM TP; +LOPRESSOR100 MG PO; +NORVASC 5MG5 MG/TAB PO; +PACERONE200 MG PO; +PROTONIX 40MG T40 MG PO; +PYRIDIUM 100MG100 MG PO; +TYLENOL 325MG325 MG PO
[2020-03-06 08:10] VITALS: BP 140/100; PULSE 102; TEMP 99.1
[2020-03-06 08:28] LABS: HEMATOCRIT 44.8 % (37.0-47.0); HEMOGLOBIN 14.3 g/dl (12.5-16.0); MEAN CELL VOLUME 90 fl (80.0-100.0); MEAN CORPUSCULAR HEMOGLOBIN 29 pg (27.0-31.0); MEAN CORPUSCULAR HGB CONC 32 g/dl (33.0-37.0); MEAN PLATELET VOLUME 9.9 fl (7.4-10.4); PLATELET COUNT 262 K/mm3 (130-400); RED BLOOD COUNT 4.99 M/mm3 (4.10-5.30); REDCELL DISTRIBUTION WIDTH-CV 15.2 % (11.5-14.5)
[2020-03-06 08:30] LABS: INR 1.6 (0.8-3.0); PROTHROMBIN TIME 18.2 SECONDS (9.7-12.8)
[2020-03-06] MEDS ORDERED: VITAMIN D31000 I1 PO (08:36)
[2020-03-06] MEDS ORDERED: D3-5050000 IU PO (08:36)
[2020-03-06 08:38] LABS: CREATININE, serum 0.8 (0.52-1.25); MAGNESIUM 1.9 mg/dL (1.6-2.3); POTASSIUM 3.9 mmol/L (3.4-5.0)
[2020-03-06] MEDS ORDERED: CORDARONE200 MG/TAB PO (08:38)
[2020-03-06] MEDS ORDERED: NORCO 325 MG-101 TAB PO (08:40)
[2020-03-06] MEDS ORDERED: MAGNESIUM500 MG PO (08:41)
[2020-03-06] MEDS ORDERED: CINNAMON500 MG PO (08:42)
[2020-03-06 09:09] LABS: THYROID STIMULATING HORMONE 2.22 uIU/mL (0.465-4.680)
[2020-03-06 10:20] VITALS: BP 104/61; PULSE 61
[2020-03-06 10:26] VITALS: BP 107/60; PULSE 62
--- NOTE | 2020-03-06 10:27 | NUR ---
Report from Chelsea Alejo.
[2020-03-06] MEDS ORDERED: LOPRESSOR100 MG PO (10:35)
[2020-03-06] MEDS ORDERED: COUMADIN 5MG5 MG/TAB PO (10:36)
[2020-03-06] MEDS ORDERED: LOVENOX120 MG/0.8 SQ (10:37)
[2020-03-06 10:40] VITALS: BP 104/64; PULSE 61
[2020-03-06 10:55] VITALS: BP 101/66; PULSE 65
[2020-03-06 11:10] VITALS: BP 1110/70; PULSE 66
--- NOTE | 2020-03-06 11:48 | NUR ---
Discharge instructions given to pt.pt verbalizes understanding.INT removed,catheter tip intact.Pt escorted out via wheelchair by this nurse.
== END 2020-03-06 11:57 | disposition home or self-care (01) ==
LOC: COL.CAR 07:30
PROVIDERS: Internal Medicine Adult Congenital Heart Disease
DX: I48.19 Other persistent atrial fibrillation (principal); I11.0 Hypertensive heart disease with heart failure; I50.20 Unspecified systolic (congestive) heart failure; R79.1 Abnormal coagulation profile; E66.01 Morbid (severe) obesity due to excess calories; I34.0 Nonrheumatic mitral (valve) insufficiency; I35.1 Nonrheumatic aortic (valve) insufficiency; I07.1 Rheumatic tricuspid insufficiency; K21.9 Gastro-esophageal reflux disease without esophagitis; M19.90 Unspecified osteoarthritis, unspecified site; Z79.01 Long term (current) use of anticoagulants; Z86.19 Personal history of other infectious and parasitic diseases; Z79.899 Other long term (current) drug therapy; Z68.41 Body mass index [BMI] 40.0-44.9, adult
CPT/HCPCS: J2704

== ENCOUNTER 2020-08-24 09:30 | Inpatient (IN) | payer SELFPAY ==
[~2020-08-24] VITALS: Ht 175.3 cm; Wt 122.7 kg
[2020-08-24] VITALS (21 sets, daily range): BP systolic 117–171; BP diastolic 57–98; PULSE 76–108; TEMP 97.9–98.7
[~2020-08-24 09:30] MED LIST changes: +CINNAMON500 MG PO; +CORDARONE200 MG/TAB PO; +COUMADIN 5MG5 MG/TAB PO; +D3-5050000 IU PO; +LOVENOX120 MG/0.8 SQ; +MAGNESIUM500 MG PO; +VITAMIN D31000 I1 PO
[2020-08-24 10:02] LABS: HEMOGLOBIN 15.5 g/dl (12.5-16.0); MEAN CELL VOLUME 88 fl (80.0-100.0); MEAN CORPUSCULAR HEMOGLOBIN 29 pg (27.0-31.0); MEAN CORPUSCULAR HGB CONC 33 g/dl (33.0-37.0); MEAN PLATELET VOLUME 9.7 fl (7.4-10.4); PLATELET COUNT 390 K/mm3 (130-400); RED BLOOD COUNT 5.32 M/mm3 (4.10-5.30); REDCELL DISTRIBUTION WIDTH-CV 13.5 % (11.5-14.5)
[2020-08-24 10:20] LABS: BAND 10 % (0-10); LYMPHOCYTE 16 % (20.0-51.0); NEUTROPHILS 66 % (42.0-75.2); PLATELET ESTIMATE NORMAL (NORMAL)
[2020-08-24 10:31] LABS: TROPONIN-I 0.037 ng/mL (0.000-0.035)
[2020-08-24 10:48] LABS: TSH w REFLEX 1.82 uIU/mL (0.465-4.680)
[2020-08-24 10:55] LABS: COLLECTION METHOD CLEAN CATCH
[2020-08-24 11:09] LABS: MUCOUS Present /lpf; PH 5 (5-8); SQUAMOUS EPITHELIAL 0-2 /hpf; URINE APPEARANCE Cloudy; URINE BACTERIA Occasional /hpf; URINE BILIRUBIN Negative (NEGATIVE); URINE BLOOD Negative (NEGATIVE); URINE COLOR Amber; URINE GLUCOSE 3+ (NEGATIVE); URINE KETONE Trace (NEGATIVE); URINE LEUKOCYTE ESTERASE Negative (NEGATIVE); URINE NITRATE Negative (NEGATIVE); URINE PROTEIN(semi-quant) 2+ (NEGATIVE); URINE UROBILINOGEN Negative (NEGATIVE)
[2020-08-24 11:17] LABS: ALBUMIN 4.3 gm/dL (3.5-5.0); BILIRUBIN,TOTAL 1.4 mg/dL (0.0-1.0); CALCIUM 10.4 mg/dL (8.4-10.2); CREATININE, serum 1.12 (0.52-1.25); TOTAL PROTEIN 7.4 gm/dL (6.4-8.2)
[2020-08-24 11:27] LABS: C-REACTIVE PROTEIN 5.9 mg/dL (0.0-0.9)
[2020-08-24] MEDS ORDERED: PYRIDIUM 100MG100 MG PO (14:00)
[2020-08-24] MEDS ORDERED: LASIX 40MG TABL40 MG PO (14:04)
[2020-08-24] MEDS ORDERED: UROCIT-K15 MEQ PO (14:08)
[2020-08-24] MEDS ORDERED: COUMADIN4 MG PO (14:17)
[2020-08-24] MEDS ORDERED: COREG12.5 MG PO (14:18)
[2020-08-24] MEDS ORDERED: COLACE 100100 MG/CAP PO (14:19)
[2020-08-24 14:53] LABS: ACETAMINOPHEN < 10 ug/mL (10-30); ALCOHOL(ethanol),MEDICAL < 10 mg/dL
--- NOTE | 2020-08-24 15:42 | NUR ---
PT HAVING ULTRASOUND
--- NOTE | 2020-08-24 15:59 | NUR ---
PT TAKEN DOWN FOR MRI
--- NOTE | 2020-08-24 17:15 | NUR ---
PT PLEASANT, AOX4, Q15MIN CHECKS IN PLACE, PT LAYING IN BED AT THIS TIME, FULL ADMISSION COMPLETED, PAIN MEDICATIONS GIVEN, NO OTHER NEEDS AT THIS TIME
[2020-08-24 17:40] LABS: INR 1.1 (0.8-3.0); PROTHROMBIN TIME 12.6 SECONDS (9.7-12.8)
--- NOTE | 2020-08-24 19:05 | NUR ---
Received report from Skye. Patient awake, lying in bed. Assisted patient in calling dietary. Denies needs at this time.
--- NOTE | 2020-08-24 21:45 | NUR ---
Patient complains being nauseous. Called Tawanna BETANCOURT and she ordered Zofran.
[2020-08-25] VITALS (11 sets, daily range): BP systolic 107–165; BP diastolic 51–65; PULSE 66–80; TEMP 97.8–98.6
--- NOTE | 2020-08-25 04:50 | NUR ---
Monitored patient accordingly. She had been asleep most of the night. She is a two assist in bedside commode. She still complains of headache and body pain. [place] given.
[2020-08-25 09:42] LABS: BASO % 0.4 % (0.0-2.0); EOS # 0.2 (0.0-0.7); EOS % 2.8 % (0-4.0); GRAN # 4.7 (1.4-6.5); GRAN % 59.5 % (42.2-75.2); HEMATOCRIT 38.2 % (37.0-47.0); HEMOGLOBIN 11.9 g/dl (12.5-16.0); LYMPH # 1.9 (1.2-3.4); LYMPH % 24.3 % (20.0-51.0); MEAN CELL VOLUME 93 fl (80.0-100.0); MEAN CORPUSCULAR HEMOGLOBIN 29 pg (27.0-31.0); MEAN CORPUSCULAR HGB CONC 31 g/dl (33.0-37.0); MEAN PLATELET VOLUME 9.4 fl (7.4-10.4); MONO % 12.6 % (1.7-9.3); PLATELET COUNT 246 K/mm3 (130-400); RED BLOOD COUNT 4.11 M/mm3 (4.10-5.30); REDCELL DISTRIBUTION WIDTH-CV 13.5 % (11.5-14.5)
[2020-08-25 09:50] LABS: BILIRUBIN,TOTAL 1.1 mg/dL (0.0-1.0); CALCIUM 8.6 mg/dL (8.4-10.2); CREATININE, serum 0.8 (0.52-1.25); POTASSIUM 3.4 mmol/L (3.4-5.0); TOTAL PROTEIN 5.6 gm/dL (6.4-8.2)
[2020-08-25 10:02] LABS: MAGNESIUM 1.6 mg/dL (1.6-2.3)
--- NOTE | 2020-08-25 19:00 | NUR ---
Pt had uneventful day, slept in bed most of this. Continued to have pain all over body. States LLE has some numbness and occasionally a shooting pain. Did demonstrate LLE weakness with ambulation. Up to the cammode with 1-2A. Appetite decreased, occasional nausea present. Fall precautions in place. Q15 min checks, patient within eyesight of nurses station.
--- NOTE | 2020-08-25 19:02 | NUR ---
Received report from Lyla. Patient is requesting for Zofran. She didn't eat all of her dinner. Instructed patient to call us if she needs to void as we need her urine sample. Changed dressing on her IV site due to blood leak.
[2020-08-26] VITALS (19 sets, daily range): BP systolic 116–146; BP diastolic 46–70; PULSE 66–72; TEMP 97.9–98.8
[2020-08-26 00:07] LABS: TRICYCLIC ANTIDEPRESS URINE POSITIVE
--- NOTE | 2020-08-26 05:36 | NUR ---
Patient still with complains of left leg pain. She is much stable and able to move well today. She can be standby to one assist to bedside commode. Monited every 15 minutes for suicidal observation.
[2020-08-26 06:51] LABS: BASO % 0.4 % (0.0-2.0); EOS # 0.3 (0.0-0.7); EOS % 5.1 % (0-4.0); GRAN # 2.9 (1.4-6.5); GRAN % 51.5 % (42.2-75.2); HEMOGLOBIN 11.3 g/dl (12.5-16.0); LYMPH # 1.7 (1.2-3.4); LYMPH % 30.4 % (20.0-51.0); MEAN CELL VOLUME 93 fl (80.0-100.0); MEAN CORPUSCULAR HEMOGLOBIN 29 pg (27.0-31.0); MEAN CORPUSCULAR HGB CONC 31 g/dl (33.0-37.0); MEAN PLATELET VOLUME 9.6 fl (7.4-10.4); MONO # 0.7 (0.1-0.6); MONO % 12.2 % (1.7-9.3); PLATELET COUNT 224 K/mm3 (130-400); REDCELL DISTRIBUTION WIDTH-CV 13.2 % (11.5-14.5)
--- NOTE | 2020-08-26 07:18 | NUR ---
Patient resting in bed upon entering the room. No signs of pain, discomfort, or futher needs at this time. Will continue to monitor. Call light in reach. Fall precautions in place. [address]
[2020-08-26 07:22] LABS: ALBUMIN 2.9 gm/dL (3.5-5.0); BILIRUBIN,TOTAL 0.6 mg/dL (0.0-1.0); CALCIUM 8.4 mg/dL (8.4-10.2); CREATININE, serum 0.71 (0.52-1.25); POTASSIUM 3.6 mmol/L (3.4-5.0); TOTAL PROTEIN 5.4 gm/dL (6.4-8.2)
[2020-08-26 07:38] LABS: HEMATOCRIT 36.1 % (37.0-47.0)
[2020-08-26 09:00] LABS: IRON,SERUM 59 ug/dL (35-150)
[2020-08-26 09:10] LABS: TOTAL IRON BINDING CAPACITY 249 ug/dL (265-497)
--- NOTE | 2020-08-26 18:00 | NUR ---
Patient has had an ok day. Is still C/O of pain in her left leg. PRN pain meds given as ordered. Warm blanket place on leg. Zofran given 2x this shift. Patient stated that she experiences frequent nausea due to IBS. Patient has been able to get up with the assistance of one person to the BSC today. Patient has denied suicidal ideations during this shift. VSS. Call light in reach. Fall precautions in place. Report given to SHANKAR Helms.
--- NOTE | 2020-08-26 20:24 | NUR ---
Stage 2 ulcer noted on patient's left heel.
--- NOTE | 2020-08-26 20:40 | NUR ---
Report received, assumed care for shift commander. Assessment complete. A&Ox3. Denies nausea/shortness of breath. Rating pain 8/10 on pain scale-described as constant throbbing to lower extremitites. [place] given per dr order. Noted to have ulcerations to top of toes on left foot. Stage II ulcer to left ankle. Plan of care discussed for this shift to include HS meds/pain control/calling for questions/concerns. Verbalizes understanding. Call light in reach. Will monitor.
--- NOTE | 2020-08-26 21:00 | NUR ---
Assisted up to shower with stand by assist. Tolerated well. Back to bed at this time. Call light in reach. Will monitor.
--- NOTE | 2020-08-26 22:41 | NUR ---
Called with c/o nausea-requesting zofran. Given at this time per dr order. Will monitor.
[2020-08-27] VITALS (17 sets, daily range): BP systolic 118–151; BP diastolic 57–89; PULSE 64–72; TEMP 97.7–98.6
--- NOTE | 2020-08-27 00:45 | NUR ---
Continues to rest with eyes closed. No s/s of distress noted. Will continue to monitor.
--- NOTE | 2020-08-27 02:15 | NUR ---
Up to bathroom with stand by assist. Voided without difficulty. C/O pain to bilat lower extremities/back-rating pain 8/10 on pain scale-described as constant throbbing. [place] given per dr order. Denies any other aneeds. Call light in reach. Will monitor.
--- NOTE | 2020-08-27 05:11 | NUR ---
Slept most of this shift. Received [place] x2 for leg/back pain. C/O nausea and received zofran x1. Showered last NOC. Ambulating better with stand by assist/walker. Still c/o numbness/tingling to left lower extremity. Q15m Suicide checks completed per order. Call light in reach. Will monitor.
--- NOTE | 2020-08-27 06:15 | NUR ---
IV site to left AC with bloody drainage. Flushes well with good blood return. Redressed site.
[2020-08-27 07:16] LABS: CALCIUM 8.4 mg/dL (8.4-10.2); CREATININE, serum 0.76 (0.52-1.25); POTASSIUM 3.8 mmol/L (3.4-5.0)
--- NOTE | 2020-08-27 07:58 | NUR ---
Shift assessment complete. Pt lying in bed, A&Ox4. Denies recent suicidal thoughts stating last time she had suicidal ideation was over a month ago. Reports severe pain to bilateral sides radiating down legs to feet, requests tylenol at this time w/norco adminsitration prior to working w/PT. Tenderness to palpation over left lower quadrant of abdomen, reports this is chronic. Also reports some mild nausea but declines zofran at this time. Heart RRR. Lungs CTA. Left AC IV site w/o visible signs of complications but is difficult to flush. Able to flush 5 mls w/repositioning. Continuing to monitor.
--- NOTE | 2020-08-27 15:14 | NUR ---
YESIKA met with the patient to discuss discharge plan. The patient lives alone in [place]. She states that she does not have any family or friends that live nearby. She reports independence with ADLs and has a cane. The patient's PCP is Dr. Bessie Del Angel and she receives her medications from [facility]. She reports having diffulties affording meds lately, due to losing her job in April because of COVID. 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 She utilizes [facility]. The patient does not have a DPOA-HC. She states that she does not have anyone, so would not know who to designate. She was interested in going ahead and obtaining a form though. YESIKA provided. The patient is . She states that she has one child, but does not talk to her. The patient has her old co-worker, Vianney Padron (ph#[phone]), listed as her person to notify. The patient reports that she has been unable to pay rent yet this month and is afraid she will become homeless. YESIKA informed her of [employer] and how they can assist with financial/utility assistance. YESIKA provided her with their phone number, along with [facility]'s Resource Guide. The patient states that she does not have a phone right now, no means of transportation, and no ID. YESIKA encouraged the patient to contact [employer] while she was here. The patient reports that she cannot get an ID until she obtains her divorce records. She reports that she got in [place], [place]. YESIKA provided the patient with [facility]'s phone number and the phone number to [facility] for ordering divorce records. YESIKA encouraged the patient to contact them too while she is here. The patient plans to return home upon discharge. fabric worker, Sakina, consulted financial counseling for a Medicaid application. The patient reported suicidal ideation while here. [facility] screened the patient and they did a safety plan with her. YESIKA made an APS report. Intake ID#[id number]. *Discharge plan: home. Will need a walker through [facility], possible transportation and medication assistance*
--- NOTE | 2020-08-27 16:57 | NUR ---
Community Service Worker facilitated mental health screen through [facility]. Patient was taken off suicide precautions. SW also consulted Adenike, Financial Counselor about applying for Medicaid.
--- NOTE | 2020-08-27 20:00 | NUR ---
PATIENT WAS CALM IN THE ROOM.DUE MEDS GIVEN.DENIES ANY OTHER NEEDS AT THIS TIME
[2020-08-28 00:22] VITALS: BP 128/61; PULSE 66; TEMP 98
[2020-08-28 04:08] VITALS: BP 152/60; PULSE 68; TEMP 98.1
--- NOTE | 2020-08-28 06:23 | NUR ---
PATIENT HAD A RESTFUL NIGHT.DENIES PAIN.NO OTHER NEEDS AT THIS TIME.
[2020-08-28 07:32] LABS: BASO % 0.4 % (0.0-2.0); EOS # 0.3 (0.0-0.7); GRAN # 2.6 (1.4-6.5); GRAN % 53.1 % (42.2-75.2); HEMOGLOBIN 11.7 g/dl (12.5-16.0); LYMPH # 1.4 (1.2-3.4); LYMPH % 27.4 % (20.0-51.0); MEAN CELL VOLUME 91 fl (80.0-100.0); MEAN CORPUSCULAR HEMOGLOBIN 29 pg (27.0-31.0); MEAN CORPUSCULAR HGB CONC 32 g/dl (33.0-37.0); MONO # 0.7 (0.1-0.6); MONO % 13.7 % (1.7-9.3); PLATELET COUNT 261 K/mm3 (130-400); RED BLOOD COUNT 4.07 M/mm3 (4.10-5.30); REDCELL DISTRIBUTION WIDTH-CV 13.2 % (11.5-14.5)
[2020-08-28 07:39] LABS: HEMATOCRIT 36.9 % (37.0-47.0)
[2020-08-28 07:41] LABS: CALCIUM 8.5 mg/dL (8.4-10.2); CREATININE, serum 0.7 (0.52-1.25); POTASSIUM 3.8 mmol/L (3.4-5.0)
[2020-08-28 07:56] VITALS: BP 143/57; PULSE 72; TEMP 98.6
--- NOTE | 2020-08-28 08:21 | NUR ---
Pt assessment complete. Pt is sitting up in bed she is A/O x4. Her breathing is even and unlabored on RA. Pt denies SOB. Pain to LLE 08/30, PRN Tylenol administered. Pt up to the restroom with SBA and use of walker, ambulating well. Does have some weakness to LLE. Fall precautions in place. Call light within reach.
[2020-08-28 09:02] LABS: INR 1.1 (0.8-3.0); PROTHROMBIN TIME 11.7 SECONDS (9.7-12.8)
[2020-08-28 11:39] VITALS: BP 113/46; PULSE 66; TEMP 98.1
--- NOTE | 2020-08-28 15:08 | NUR ---
Virtual Classroom Manager attended clinical rounds with the team, then met with patient to discuss discharge needs. Patient reports she does not have transportation, money, or a phone. YESIKA provided patient with contact information to a program that can provide a free phone based on income. YESIKA also provided a Financial Assistance Application. YESIKA also contacted [facility] Managed Care Director who will bring patient a 30 day bus pass this afternoon. YESIKA also signed patient up for the Community Care Team, which patient was agreeable to. YESIKA provided signed release to Brandie Urbina, Building Services Engineer who sits on the Community Care Team. YESIKA scheduled patient an appointment at the [facility] for 09/11/20 at 1300 and provided appointment time to business unit director. YESIKA followed up with patient who advised she has a friend bringing her a walker this afternoon. At the time of follow up, Brandie Bennett, Adult Commodities Broker arrived to meet with patient. Discharge Plan: Home
[2020-08-28 15:58] VITALS: BP 110/50; PULSE 70; TEMP 98.2
--- NOTE | 2020-08-28 18:53 | NUR ---
Pt had uneventful day, rested in bed through most of it. Complained of intermittent pain to LLE and low back, PRN pain medications administered. Pt has a K pad in her room and is using this. Ambulated to the restroom with SBA and walker. No needs at this time. Call light within reach.
--- NOTE | 2020-08-28 18:55 | NUR ---
Received report from Lyla. Patient complains of pain on her left leg, [place] given.
[2020-08-28 19:47] VITALS: BP 127/67; PULSE 64; TEMP 98.2
--- NOTE | 2020-08-28 21:36 | NUR ---
Asssited patient to the bathroom. She is a standby assist. She states her left leg is still painful and feels a bit numb but she can move it much better now.
[2020-08-29 00:12] VITALS: BP 152/79; PULSE 62; TEMP 98.8
[2020-08-29 05:40] VITALS: BP 156/68; PULSE 69; TEMP 98.7
[2020-08-29 06:50] LABS: BASO % 0.2 % (0.0-2.0); EOS # 0.2 (0.0-0.7); EOS % 4.5 % (0-4.0); GRAN # 2.2 (1.4-6.5); GRAN % 50.6 % (42.2-75.2); HEMATOCRIT 40.7 % (37.0-47.0); HEMOGLOBIN 12.8 g/dl (12.5-16.0); LYMPH # 1.3 (1.2-3.4); LYMPH % 31.3 % (20.0-51.0); MEAN CELL VOLUME 92 fl (80.0-100.0); MEAN CORPUSCULAR HEMOGLOBIN 29 pg (27.0-31.0); MEAN CORPUSCULAR HGB CONC 31 g/dl (33.0-37.0); MEAN PLATELET VOLUME 9.6 fl (7.4-10.4); MONO # 0.5 (0.1-0.6); MONO % 12.7 % (1.7-9.3); PLATELET COUNT 299 K/mm3 (130-400); RED BLOOD COUNT 4.42 M/mm3 (4.10-5.30); REDCELL DISTRIBUTION WIDTH-CV 13.4 % (11.5-14.5)
[2020-08-29 06:59] LABS: ALBUMIN 3.4 gm/dL (3.5-5.0); BILIRUBIN,TOTAL 0.4 mg/dL (0.0-1.0); CALCIUM 8.9 mg/dL (8.4-10.2); CREATININE, serum 0.77 (0.52-1.25); POTASSIUM 3.9 mmol/L (3.4-5.0); TOTAL PROTEIN 6.2 gm/dL (6.4-8.2)
[2020-08-29 08:08] VITALS: BP 141/57; PULSE 66; TEMP 98.2
--- NOTE | 2020-08-29 08:30 | NUR ---
Shift assessment complete. A&Ox4. Heart RRR. Lungs CTA. Reports pain and tenderness to LLE 09/29 but declines meds at this time. D/C orders in and paperwork done, awaiting delivery of pt's medications for discharge.
[2020-08-29] MEDS ORDERED: ASPI325T6 PO (09:01)
[2020-08-29] MEDS ORDERED: COREG12.5 MG PO (09:01)
[2020-08-29] MEDS ORDERED: NEURONTIN300 MG/CAP PO (09:01)
[2020-08-29] MEDS ORDERED: PRINIVIL40 MG PO (09:01)
[2020-08-29] MEDS ORDERED: CYMBALTA 60MG60 MG PO (09:01)
[2020-08-29] MEDS ORDERED: CORDARONE200 MG/TAB PO (09:01)
[2020-08-29] MEDS ORDERED: AMITRIPTYLINE H50 M1 PO (09:01)
[2020-08-29 11:44] VITALS: BP 147/86; PULSE 69; TEMP 97.8
--- NOTE | 2020-08-29 15:26 | NUR ---
Discharge instructions discussed w/pt and all questions answered. IV to left AC removed w/ tip intact. [facility] called to citrus picker pt and states someone will pick pt up in 20 minutes. Pt dressed and all belongings gathered, waiting in room.
--- NOTE | 2020-08-29 16:30 | NUR ---
Pt escorted out via wheelchair w/all belongings to taxi.
--- NOTE | 2020-08-30 14:26 | NUR ---
(Late Entry) On 08/29/20, Photographic Platemaker attended clinical rounds with the team and patient to discharge home today. YESIKA obtained 30 day erwin pass and provided it to patient. YESIKA collaborated with PT who made adjustments to the front wheeled walker patient's friend brought in for her. Patient completed a Financial Assistance Application and SW returned it to Adenike, Financial Counselor. YESIKA provided copy to patient for her records. Patient has several medications she needs upon discharge but cannot afford them. YESIKA completed medication voucher for $67 and faxed it over to [facility]. Angela at [facility] advised they will deliver the medications up to patient's room between [id number]. YESIKA provided taxi voucher to RN as patient has no transportation home and no money for a cab ride. YESIKA provided patient with information on how to apply for a free cell phone through a low income program. Discharge Plan: Home
== END 2020-08-29 16:30 | disposition home or self-care (01) | DRG 552 ==
LOC: COL.ER 09:30 → MEDICAL 11:24
PROVIDERS: Family Medicine; Internal Medicine; Physician Assistant; ADMIT Emergency Medicine
DX: M54.32 Sciatica, left side (principal); M62.82 Rhabdomyolysis; R45.851 Suicidal ideations; E87.1 Hypo-osmolality and hyponatremia; M54.31 Sciatica, right side; E11.9 Type 2 diabetes mellitus without complications; I48.91 Unspecified atrial fibrillation; D64.9 Anemia, unspecified; R79.89 Other specified abnormal findings of blood chemistry; I10 Essential (primary) hypertension; G83.9 Paralytic syndrome, unspecified; E86.0 Dehydration; M48.061 Spinal stenosis, lumbar region without neurogenic claudication; R22.1 Localized swelling, mass and lump, neck; Z91.5 Personal history of self-harm; Z87.442 Personal history of urinary calculi; Z85.850 Personal history of malignant neoplasm of thyroid
CPT/HCPCS: 99223-AI; 99232-AI; 99239; J1650; J2270; J2405; J7030; J7120

== ENCOUNTER 2021-03-12 10:51 | Emergency (ER) | payer SELFPAY ==
[~2021-03-12] VITALS: Ht 175.3 cm; Wt 118.2 kg
[~2021-03-12 10:51] MED LIST changes: +ASPI325T6 PO; +COREG12.5 MG PO; +COUMADIN4 MG PO; +LASIX 40MG TABL40 MG PO; +NEURONTIN300 MG/CAP PO; +PRINIVIL40 MG PO; +UROCIT-K15 MEQ PO
[2021-03-12 10:52] VITALS: TEMP 98
[2021-03-12 11:45] LABS: BASO % 0.3 % (0.0-2.0); EOS # 0.2 K/mm3 (0.0-0.7); EOS % 2.5 % (0.0-4.0); GRAN # 4.7 K/mm3 (1.4-6.5); GRAN % 61.5 % (42.2-75.2); HEMATOCRIT 45.4 % (37.0-47.0); HEMOGLOBIN 15.1 g/dl (12.5-16.0); LYMPH % 25.8 % (20.0-51.0); MEAN CELL VOLUME 81 fl (80.0-100.0); MEAN CORPUSCULAR HEMOGLOBIN 27 pg (27-31); MEAN CORPUSCULAR HGB CONC 33 g/dl (33.0-37.0); MEAN PLATELET VOLUME 9.4 fl (7.4-10.4); MONO # 0.7 K/mm3 (0.1-0.6); MONO % 9.5 % (1.7-9.3); PLATELET COUNT 327 K/mm3 (130-400); RED BLOOD COUNT 5.59 M/mm3 (4.10-5.30); REDCELL DISTRIBUTION WIDTH-CV 13.5 % (11.5-14.5)
[2021-03-12 11:58] LABS: PROTHROMBIN TIME 10.9 SECONDS (9.7-12.8)
[2021-03-12 12:00] LABS: PARTIAL THROMBOPLASTIN TIME 30.5 SECONDS (26.0-37.0)
[2021-03-12 12:22] LABS: ALANINE AMINOTRANSFERASE 28 U/L (0-55); ALBUMIN 3.7 gm/dL (3.5-5.0); ALKALINE PHOSPHATASE 115 U/L (40-150); AST,SGOT 17 U/L (5-34); BILIRUBIN,TOTAL 0.6 mg/dL (0.2-1.2); BLOOD UREA NITROGEN 15 mg/dL (10-20); CALCIUM 9.2 mg/dL (8.4-10.2); CARBON DIOXIDE 22 mmol/L (22-29); CHLORIDE 101 mmol/L (98-107); CREATININE, serum 0.82 mg/dL (0.57-1.11); GLUCOSE 261 mg/dL (70-99); POTASSIUM 4.2 mmol/L (3.5-4.5); SODIUM 137 mmol/L (136-145); TOTAL PROTEIN 7.1 gm/dL (6.2-8.1)
[2021-03-12 12:26] LABS: ANION GAP 14 mmol/L (7-16)
[2021-03-12 12:42] LABS: LIPASE 12 U/L (8-78)
[2021-03-12 12:47] LABS: TROPONIN-I < 0.010 ng/mL (0.00-0.033)
[2021-03-12] MEDS ORDERED: PRINIVIL40 MG PO (13:45)
[2021-03-12] MEDS ORDERED: COREG12.5 MG PO (13:45)
--- NOTE | 2021-03-12 14:01 | NUR ---
SW consulted due to the patient not being able to afford her medications since her hospital visit in August. At that time, the patient was sent home with a medication and a taxi voucher. Sw met with patient at bedside. She states that since her stay in August she has since been working with a shelter case manager names Brittany Smith at [address] [place] [address] to establish getting on [employer] and disability. Patient reports that she was laid off due to covid in April. 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 Patient reports that she was seeing Dr. Bessie Del Angel as a PCP but it got to where she couldn't afford her visits so stopped going. Last time she saw her PCP was last March. Educated the patient on establishing a doctor due to her needing a physician to follow her care/perscription needs. Patient is provided with information to the [facility]. Patient is also provided the [place] Resource guide and educated on the agencies that can help her with her perscriptions. Patient reports that she has been able to stay at her apartment and due to covid, but that has since ended and she is afraid of soon being evicted. Educated the patient on resources that can help with that as well. Encouraged her to reach out to her shoe parts caser as well. Patient is provided a medication voucher for Coreg ($6.27) and Prinivil ($6.73). [facility] contacted who reports they can pick the patient up but not until 1529. Patient and patient's RN notified. Upon dc, patient is dc'd to the waiting room to wait for taxi.
[2021-03-12 14:04] VITALS: BP 121/71; PULSE 88
== END 2021-03-12 14:04 | disposition home or self-care (01) ==
LOC: COL.ER 10:51
PROVIDERS: Emergency Medicine
DX: R10.11 Right upper quadrant pain (principal); R07.89 Other chest pain; I10 Essential (primary) hypertension; I48.91 Unspecified atrial fibrillation; E11.9 Type 2 diabetes mellitus without complications; Z87.891 Personal history of nicotine dependence; Z79.899 Other long term (current) drug therapy
CPT/HCPCS: J1170; J2270; J2405; J2765; J7030

== ENCOUNTER 2021-08-06 05:47 | Inpatient (IN) | payer MEDICAID ==
[~2021-08-06] VITALS: Ht 172.7 cm; Wt 124.1 kg
[2021-08-06] VITALS (12 sets, daily range): BP systolic 109–144; BP diastolic 39–98; PULSE 72–95; TEMP 97.9–98.3
[2021-08-06 06:08] LABS: HEMOGLOBIN 13.4 g/dl (12.5-16.0); MEAN CELL VOLUME 81 fl (80.0-100.0); MEAN CORPUSCULAR HEMOGLOBIN 28 pg (27-31); MEAN CORPUSCULAR HGB CONC 34 g/dl (33.0-37.0); MEAN PLATELET VOLUME 10.4 fl (7.4-10.4); PLATELET COUNT 211 K/mm3 (130-400); RED BLOOD COUNT 4.84 M/mm3 (4.10-5.30); REDCELL DISTRIBUTION WIDTH-CV 14.2 % (11.5-14.5)
[2021-08-06 06:32] LABS: BILIRUBIN,TOTAL 1.1 mg/dL (0.2-1.2); CALCIUM 8.2 mg/dL (8.4-10.2); CREATININE, serum 5.07 mg/dL (0.57-1.11); TOTAL PROTEIN 7.1 gm/dL (6.2-8.1)
[2021-08-06 06:33] LABS: C-REACTIVE PROTEIN 39.79 mg/dL (0.00-0.50)
[2021-08-06 06:42] LABS: BAND 14 % (0-10); LYMPHOCYTE 13 % (20.0-51.0); NEUTROPHILS 61 % (42.0-75.2); PLATELET ESTIMATE NORMAL (NORMAL)
[2021-08-06] MEDS ORDERED: FLEXERIL 1010 MG/TAB PO (07:25)
[2021-08-06] MEDS ORDERED: ELAVIL100 MG PO (07:25)
[2021-08-06] MEDS ORDERED: CYMBALTA 30MG30 MG PO (07:26)
[2021-08-06] MEDS ORDERED: PRILOSEC 20MG20 MG PO (07:26)
[2021-08-06] MEDS ORDERED: MOBIC15 MG PO (07:26)
[2021-08-06] MEDS ORDERED: PRINIVIL40 MG PO (07:27)
[2021-08-06] MEDS ORDERED: ASPIRIN 32325 MG/TAB PO (07:27)
[2021-08-06] MEDS ORDERED: COREG12.5 MG PO (07:27)
[2021-08-06] MEDS ORDERED: TYLENOL 500MG500 MG PO (07:27)
[2021-08-06] MEDS ORDERED: GLUCOPHAGE500 MG/TAB PO (07:28)
[2021-08-06] MEDS ORDERED: ZOFRAN ODT4 MG PO (07:28)
[2021-08-06 09:23] LABS: AMORPHOUS CRYSTAL Present (NOT PRESENT); MUCOUS Present (NOT PRESENT); PH 5 (5-8); URINE APPEARANCE Cloudy (CLEAR/HAZY); URINE BACTERIA Moderate /hpf (NONE SEEN); URINE BILIRUBIN Negative (NEGATIVE); URINE BLOOD 2+ (NEGATIVE); URINE COLOR Yellow (YELLOW); URINE GLUCOSE Negative (NEGATIVE); URINE KETONE Negative (NEGATIVE); URINE LEUKOCYTE ESTERASE 3+ (NEGATIVE); URINE NITRATE Negative (NEGATIVE); URINE PROTEIN(semi-quant) 2+ (NEGATIVE); URINE UROBILINOGEN Negative (NEGATIVE)
[2021-08-06 10:49] LABS: COLLECTION METHOD CATHETER
--- NOTE | 2021-08-06 12:15 | NUR ---
PT RETURNED FROM OR. RIGHT STENT PLACED. UROLOGY ORDER FOR CONTINUED DAILEY CATHETER. PT DENIES PAIN AT THIS TIME. VSS. NO OTHER CONCERNS.
[2021-08-07 00:08] VITALS: BP 116/51; PULSE 90; TEMP 97.4
[2021-08-07 04:29] VITALS: BP 113/56; PULSE 101; TEMP 98.5
[2021-08-07 06:42] LABS: BASO % 0.5 % (0.0-2.0); EOS % 0.1 % (0.0-4.0); GRAN # 6.6 K/mm3 (1.4-6.5); GRAN % 84.8 % (42.2-75.2); HEMOGLOBIN 11.6 g/dl (12.5-16.0); LYMPH # 0.6 K/mm3 (1.2-3.4); LYMPH % 7.3 % (20.0-51.0); MEAN CORPUSCULAR HEMOGLOBIN 28 pg (27-31); MEAN CORPUSCULAR HGB CONC 33 g/dl (33.0-37.0); MEAN PLATELET VOLUME 10.4 fl (7.4-10.4); MONO # 0.5 K/mm3 (0.1-0.6); MONO % 6.4 % (1.7-9.3); PLATELET COUNT 156 K/mm3 (130-400); RED BLOOD COUNT 4.12 M/mm3 (4.10-5.30); REDCELL DISTRIBUTION WIDTH-CV 14.6 % (11.5-14.5)
[2021-08-07 06:44] LABS: HEMATOCRIT 35.4 % (37.0-47.0); MEAN CELL VOLUME 86 fl (80.0-100.0)
[2021-08-07 07:01] LABS: ALBUMIN 2.3 gm/dL (3.5-5.0); CALCIUM 7.2 mg/dL (8.4-10.2); CREATININE, serum 3.38 mg/dL (0.57-1.11); MAGNESIUM 1.7 mg/dL (1.6-2.6); POTASSIUM 4.2 mmol/L (3.5-4.5)
--- NOTE | 2021-08-07 07:20 | NUR ---
PT LAYING IN BED DENIES ANY PAIN, NO SOB, RESTING COMFORTABLY. WILL RETURN FOR HOURLY ROUNDING.
[2021-08-07 07:44] VITALS: BP 114/84; PULSE 93; TEMP 98
--- NOTE | 2021-08-07 09:49 | NUR ---
Initial visit; Patient states she is a little better but will have to have surgical procedure. Velvet declined prayer but was comfortable with Rehanger keeping her in her prayers and checking on her again. Rehanger offered God's blessings to Velvet.
--- NOTE | 2021-08-07 10:34 | NUR ---
SW met with the patient to discuss discharge plan. The patient lives alone in an apartment in [place]. She reports independence with ADLs and has a cane, rollator, and showerchair. She states that her insurance approved her 21 hours a week for in home services and she receives services from [facility]. She states that she will be also getting services from [facility] next month for additional in home services for housekeeping and meals. The patient's PCP is Dr. Nina Marrero and she receives her medications from [facility]. She reports no difficulties obtaining her meds. The patient does not have a DPOA-HC and she was not interested in completing one at this time. She states that she has the forms at home already. She states that at this time, she has no one that she would designate. She states that she is not and that she has one child: Margie Pineda. Margie lives in [place] and the patient states that she has no contact with her and does not have her phone number. She states that the person she has down as her next of kin in [facility], Brittany Smith (ph#[phone]), is a worker for [employer]. The patient plans on returning home upon discharge. She plans to check with her personal support worker from [employer] on if they will transport her home. No additional needs at this time. *Discharge plan: home*
[2021-08-07 12:01] VITALS: BP 130/79; PULSE 103; TEMP 97.9
[2021-08-07 16:28] VITALS: BP 121/46; PULSE 109; TEMP 98.1
--- NOTE | 2021-08-07 18:59 | NUR ---
REPORT GIVEN TO SHANKAR WILDER.
[2021-08-07 20:00] VITALS: BP 117/61; PULSE 95; TEMP 98.5
--- NOTE | 2021-08-07 21:00 | NUR ---
Pt. sitting up in bed. Pt. is A&OX3, assessment complete. IV to rt. wrist with IV fluids infusing per orders. IV to lt. hand with Heparin GTT infusing per orders. Pt. denies pain or other needs, call light within reach.
--- NOTE | 2021-08-07 21:08 | NUR ---
HepXa at 0.68, no change to gtt rate at this time.
[2021-08-08] VITALS (14 sets, daily range): BP systolic 108–151; BP diastolic 67–102; PULSE 100–137; TEMP 97.9–98.7
--- NOTE | 2021-08-08 04:50 | NUR ---
Hep Xa 0.41 wnl no change.
[2021-08-08 06:15] LABS: BASO # 0.1 K/mm3 (0.0-0.2); BASO % 0.3 % (0.0-2.0); GRAN % 83.9 % (42.2-75.2); HEMOGLOBIN 12.1 g/dl (12.5-16.0); LYMPH % 6.8 % (20.0-51.0); MEAN CELL VOLUME 86 fl (80.0-100.0); MEAN CORPUSCULAR HEMOGLOBIN 28 pg (27-31); MEAN CORPUSCULAR HGB CONC 33 g/dl (33.0-37.0); MEAN PLATELET VOLUME 9.9 fl (7.4-10.4); MONO # 1.1 K/mm3 (0.1-0.6); MONO % 7.7 % (1.7-9.3); PLATELET COUNT 226 K/mm3 (130-400); REDCELL DISTRIBUTION WIDTH-CV 14.9 % (11.5-14.5)
[2021-08-08 06:16] LABS: HEMATOCRIT 36.8 % (37.0-47.0)
[2021-08-08 06:34] LABS: ALBUMIN 2.5 gm/dL (3.5-5.0); CREATININE, serum 2.03 mg/dL (0.57-1.11); MAGNESIUM 1.6 mg/dL (1.6-2.6); PHOSPHOROUS 2.4 mg/dL (2.3-4.7)
--- NOTE | 2021-08-08 09:58 | NUR ---
Pt to medical laboratory technologist for ALEKSANDAR/cardioversion
--- NOTE | 2021-08-08 10:20 | NUR ---
Follow-up visit; Patient thanked Minister Helper for looking in on her. Velvet states she is still in a lot of pain and would welcome Minister Helper keeping her in her prayers and thanked Minister Helper for offering God's blessings.
--- NOTE | 2021-08-08 12:10 | NUR ---
Asked HAMMAD Ford for PICC line on patient due to multiple high risk medications being administered at the same time. HAMMAD Ford to place order.
--- NOTE | 2021-08-08 12:15 | NUR ---
Arabella RN notified this RN that Dr. Woods is on the patient's case and that we would need his approval before placeing. Notified GLEN Quiñonez who communicated with Dr. Woods who denied the Picc.
--- NOTE | 2021-08-08 13:51 | NUR ---
Dr. Woods canceled PICC placement
--- NOTE | 2021-08-08 19:00 | NUR ---
PT REMAINS ON A HEPARIN GTT WELL AN AMIO GTT HAND OFF CHECK PERFORMED BY THIS RN WELL SHANKAR KISER. THE PATIENT HAS HAD PAIN TODAY THAT WAS RESOLVED WITH THE DOSE OF ROXICODONE THAT WAS ORDERED BY DR. PERALES. THE PATIENT DID HAVE A ALEKSANDAR/CARDIOVERSION THAT WAS UNSUCCESSFUL. PATIENT IS VERY ANXIOUS. NO OTHER CONCERNS AT THIS TIME. REPORT GIVEN TO PIPE STEM SAWYER SHANKAR KISER.
--- NOTE | 2021-08-08 23:42 | NUR ---
PATIENT HAVING LOWER BACK PAIN WITH SOME LEG PAIN. PATIENT STATED IT IS CHRONIC PAIN THAT SHE HAS DELT WITH FOR A WHILE. PATIENT CONTINUES ON HEPARIN GTTS AND AMIODARONE SINUS ON THE TELE PATIENT DOES GO IN AND OUT OF A-FIB AND SINUS WITH 1ST DEGREE BLOCK. DENIES ANY CHEST PAIN. HEP XA TO BE DRAWN IN AM. PROVIDED PRN PAIN MEDICATION EARLY IN SHIFT. WILL CONTINUE TO MOINTOR PAIN LEVEL. ALSO WILL MONITOR URINE OUTPUT AIR CONDITIONING ENGINEER STATED THAT PATIENT VOIDED 500 EARLY IN SHIFT. WILL CONTINUE TO MONITOR FOR ANY CHANGES.
[2021-08-09 00:40] VITALS: BP 127/72; PULSE 84; TEMP 98.5
[2021-08-09 04:55] VITALS: BP 117/66; PULSE 80; TEMP 98.3
--- NOTE | 2021-08-09 04:57 | NUR ---
PATIENT SLEPT THROUGHOUT THE NIGHT AFTER RECEIVING PRN PAIN MEDICATION. VOIDING WITHOUT DIFFICULTY THROUGHOUT SHIFT USING BSC WITH STANDBY ASSIST. REMAINS ON HEPARIN GTTS AND AMIODARONE GTTS.
[2021-08-09 06:18] LABS: HEMOGLOBIN 10.5 g/dl (12.5-16.0); MEAN CELL VOLUME 83 fl (80.0-100.0); MEAN CORPUSCULAR HEMOGLOBIN 28 pg (27-31); MEAN CORPUSCULAR HGB CONC 33 g/dl (33.0-37.0); MEAN PLATELET VOLUME 9.9 fl (7.4-10.4); PLATELET COUNT 237 K/mm3 (130-400); RED BLOOD COUNT 3.81 M/mm3 (4.10-5.30); REDCELL DISTRIBUTION WIDTH-CV 14.7 % (11.5-14.5)
[2021-08-09 06:26] LABS: HEMATOCRIT 31.7 % (37.0-47.0)
--- NOTE | 2021-08-09 06:30 | NUR ---
R WRIST IV INFILITRATED AMIODARONE RUNNING D/C IMMEDIATLEY APPLYING HEAT TO SITE TOOK OUT IV. RESTARTED IV TO L AC 20G TOLRATED WELL AMIODARONE DRIP RESTARTED. WILL CONTINUE TO MONITOR SITE.
[2021-08-09 06:40] LABS: ALBUMIN 2.4 gm/dL (3.5-5.0); CREATININE, serum 1.31 mg/dL (0.57-1.11); MAGNESIUM 1.7 mg/dL (1.6-2.6); PHOSPHOROUS 2.5 mg/dL (2.3-4.7); POTASSIUM 3.8 mmol/L (3.5-4.5)
--- NOTE | 2021-08-09 07:14 | NUR ---
HEPARIN DRIP ADJUSTED PER PROTOCOL WITH OF GOING BEDSIDE NURSE.
[2021-08-09 07:39] LABS: BAND 3 % (0-10); EOSINOPHIL 1 % (0-4); NEUTROPHILS 57 % (42.0-75.2)
[2021-08-09 07:40] LABS: LYMPHOCYTE 30 % (20.0-51.0); PLATELET ESTIMATE NORMAL (NORMAL)
[2021-08-09 08:06] VITALS: BP 131/62; PULSE 85; TEMP 98.3
[2021-08-09 12:01] VITALS: BP 124/58; PULSE 87; TEMP 98.2
[2021-08-09 16:00] VITALS: BP 155/83; PULSE 75; TEMP 98.2
--- NOTE | 2021-08-09 16:46 | NUR ---
PATIENT RESTING IN BED, COMPLAINTS OF PAIN. PAIN MEDS GIVEN. AMIO DRIP INFILTRATED ON RIGHT WRIST, IV REMOVED, WARM COMPRESS GIVEN. SITE RED, SWOLLEN AND VERY TENDER. PATIENT STATES BURNING SENSATION. PATIENT IN NSR THIS AM. AMIO DRIP STOPPED. HEPARIN DRIP STOPPED. SWITCHED TO BETAPACE, AND ELIQUIS. PATIENT ASKED FOR BOWEL MEDICATIONS, COLACE ORDERED. WILL CONTINUE TO MONITOR.
--- NOTE | 2021-08-09 20:09 | NUR ---
PATIENT HEPARIN DRIP AND AMIO DRIP DC'D. BETAPACE INITIATION STARTED TODAY, ELIQUIS STARTED TODAY. ONE DOSE OF PAIN MEDS GIVEN/REQUESTED TODAY. NO FURTHER COMPLAINTS OF PAIN. PATIENT REFUSED LUNCH, ORDERED ENSURE. IV IN AC REMOVED. ANTIBIOTICS CHANGED TO ROCEFIN. PATIENT AMBULATING TO AND FROM BSC INDEPENDENTLY. OUTPUT ADEQUATE, URINE DARK. RECOMMEND INCOURAGING ORAL FLUID INTAKE INCREASE. PATIENT AWARE. AMIO IN RW IV INFILTRATED, REMOVED AT SHIFT CHANGE. SOME NOTED PHLEBITIS, AND HEAT PAD APPLIED. NO OTHER SIGNIFICANT EVENTS THIS SHIFT.
--- NOTE | 2021-08-09 20:45 | NUR ---
Initial shift assessment done- pleasant, alert/oriented- helped up to bathroom, voiding yellow clear urine,, Back to bed with assist, Tele on, Pain to knees/back 09/29-- given oxycodone and flexeril at this time for pain,
[2021-08-09 20:56] VITALS: BP 154/62; PULSE 85; TEMP 99.3
[2021-08-10 01:24] VITALS: BP 146/79; PULSE 79; TEMP 98.1
[2021-08-10 03:53] VITALS: BP 119/51; PULSE 75; TEMP 98.2
--- NOTE | 2021-08-10 05:30 | NUR ---
Was given oxycodone and Flexeril per pts requests at this time- states pain all over-legs/arms/back,, Tele on-no changes. Has been voiding well throughout the night.
[2021-08-10 06:47] LABS: HEMOGLOBIN 10.3 g/dl (12.5-16.0); MEAN CELL VOLUME 84 fl (80.0-100.0); MEAN CORPUSCULAR HEMOGLOBIN 28 pg (27-31); MEAN CORPUSCULAR HGB CONC 33 g/dl (33.0-37.0); PLATELET COUNT 274 K/mm3 (130-400); REDCELL DISTRIBUTION WIDTH-CV 14.7 % (11.5-14.5)
[2021-08-10 07:05] LABS: ALBUMIN 2.2 gm/dL (3.5-5.0); CALCIUM 8.1 mg/dL (8.4-10.2); CREATININE, serum 1.12 mg/dL (0.57-1.11); MAGNESIUM 1.6 mg/dL (1.6-2.6); PHOSPHOROUS 2.8 mg/dL (2.3-4.7); POTASSIUM 3.9 mmol/L (3.5-4.5)
[2021-08-10 08:00] VITALS: BP 156/81; PULSE 73; TEMP 97.9
[2021-08-10 08:34] LABS: BAND 1 % (0-10); EOSINOPHIL 5 % (0-4); LYMPHOCYTE 18 % (20.0-51.0); NEUTROPHILS 61 % (42.0-75.2)
[2021-08-10 08:35] LABS: PLATELET ESTIMATE NORMAL (NORMAL)
[2021-08-10 12:16] VITALS: BP 125/75; PULSE 69; TEMP 98.4
--- NOTE | 2021-08-10 13:47 | NUR ---
PATIENT C/O 7(10) PAIN. MEDS PROVIDED. PATIENT ALERT, ORIENTED. RESTING IN BED. NO CONCERNS. PLAN TO DISCHARGE ON THURSDAY AFTER DAY 3 OF SOTOLOL INITIATION. QTC 440 TODAY ON EKG. INDEPENDENT IN ROOM WITH ROLLING WALKER.
[2021-08-10 15:43] VITALS: BP 123/80; PULSE 62; TEMP 98.3
--- NOTE | 2021-08-10 19:34 | NUR ---
PATIENT RESTING IN ROOM TODAY. INDEPENDENT. PAIN MEDS GIVEN ONCE TODAY. NO CONCERNS FOR AUTHOR.
--- NOTE | 2021-08-10 20:30 | NUR ---
Initial shift assessment done- denies need for pain meds now- will wait till closer to bedtime,, VSS, states feeling overall pretty good- no requests, denies need for snack, Up to bathroom with assist- had orange/lois colored urine-good amounts, Tele on SR 71/min
[2021-08-10 21:16] VITALS: BP 143/55; PULSE 69; TEMP 98.1
[2021-08-11 00:04] VITALS: BP 136/65; PULSE 72; TEMP 99
[2021-08-11 03:45] VITALS: BP 151/84; PULSE 76; TEMP 98
--- NOTE | 2021-08-11 06:07 | NUR ---
Quiet night, was given Flexeril and an oxycodone around [place] otherwise has been sleeping most of the night-- call for assistance up to bathroom, VSS
[2021-08-11 06:56] LABS: HEMOGLOBIN 10.7 g/dl (12.5-16.0); MEAN CELL VOLUME 87 fl (80.0-100.0); MEAN CORPUSCULAR HEMOGLOBIN 28 pg (27-31); MEAN CORPUSCULAR HGB CONC 32 g/dl (33.0-37.0); MEAN PLATELET VOLUME 9.7 fl (7.4-10.4); PLATELET COUNT 362 K/mm3 (130-400); RED BLOOD COUNT 3.83 M/mm3 (4.10-5.30); REDCELL DISTRIBUTION WIDTH-CV 14.8 % (11.5-14.5)
[2021-08-11 07:13] LABS: ALBUMIN 2.3 gm/dL (3.5-5.0); CALCIUM 8.4 mg/dL (8.4-10.2); CREATININE, serum 1.16 mg/dL (0.57-1.11); MAGNESIUM 1.7 mg/dL (1.6-2.6); PHOSPHOROUS 3.7 mg/dL (2.3-4.7); POTASSIUM 4.1 mmol/L (3.5-4.5)
[2021-08-11 07:23] LABS: HEMATOCRIT 33.2 % (37.0-47.0)
[2021-08-11 07:49] LABS: BAND 1 % (0-10); EOSINOPHIL 3 % (0-4); LYMPHOCYTE 17 % (20.0-51.0); NEUTROPHILS 71 % (42.0-75.2)
[2021-08-11 07:50] LABS: HYPOCHROMIA 1+; PLATELET ESTIMATE NORMAL (NORMAL)
[2021-08-11 08:00] VITALS: BP 153/83; PULSE 76; TEMP 98.1
--- NOTE | 2021-08-11 08:40 | NUR ---
Shift assessment complete. Pt resting in bed A&OX4. Heart RRR. Lungs CTA. Reports chronic pain to lower back and legs, flexeril and ES tylenol given per orders. Denies further needs. Continuing to monitor.
[2021-08-11 12:06] VITALS: BP 139/69; PULSE 64; TEMP 98
[2021-08-11] MEDS ORDERED: BETAPACE 120MG120 MG PO (14:41)
[2021-08-11] MEDS ORDERED: ELIQUIS 5MG PO (14:42)
[2021-08-11] MEDS ORDERED: OMNICEF 300MG300 MG PO (14:47)
--- NOTE | 2021-08-11 15:45 | NUR ---
Discharge instructions discussed w/pt and questions answered. IV to left hand removed with tip intact. Pt escorted out via wheelchair to taxi with all belongings. Cab vouchers given to television cable installer.
--- NOTE | 2021-08-11 15:56 | NUR ---
SW gave RN 2 [facility] voucher for pharmacy stop and home.
--- NOTE | 2021-08-12 09:33 | NUR ---
The patient was discharged yesterday, 08/11. She returned home with her previous services through [address] [place] [address]. Discharge orders were written for home health fdc/PT/OT. The patient has Medicaid [place] and Medicaid does not pay for PT/OT in the home. YESIKA contacted the patient to follow up about home health and if she would be interested in fdc home health. The patient reports that she would be interested in home health. The patient also informed SW that she was given a taxi voucher to stop to get her medications and to get home, but the truss driver helper only dropped her off at home. She states that once she got home, the truss driver helper told her that she had not paid yet and asked for the $12. The patient reports that she believes her RN had given the taxi voucher to the cement truck driver. The patient reports that the taxi did not take her to [facility], so she does not have her medications yet. She does not have a reliable source of transportation to get her medications. YESIKA notified supervisors of the taxi voucher incident. YESIKA contacted [facility] about the medications and if they can deliver to the patient's home. The pharmacist reports that the patient has no charge for her meds, but it would cost $5.90 to deliver her medications. SW paid for the delivery fee through the [facility]. The pharmacist reports that they will deliver the meds to the patient's home today. YESIKA contacted and faxed a referral to [facility], [facility], and [facility]. [facility] reports that they can the patient's insurance by a case by case basis. They will have to review the referral. Gabe, at [facility], states that they do take the patient's insurance and that it should be no problem to take the patient for nursing. [facility] states that they will contact this SW back, if any issues. YESIKA contacted and updated the patient. The patient is in agreement to the plan.
== END 2021-08-11 15:50 | disposition home health service (06) | DRG 854 ==
LOC: COL.ER 05:47 → MEDICAL 09:31
PROVIDERS: Family Medicine; Urology; ADMIT Internal Medicine
PROC: 0T768DZ Dilation of Right Ureter with Intraluminal Device, Via Natural or Artificial Opening Endoscopic (ICD-10-PCS; principal; 2021-08-06 11:45)
PROC: BT1D1ZZ Fluoroscopy of Right Kidney, Ureter and Bladder using Low Osmolar Contrast (ICD-10-PCS; 2021-08-06 11:45)
DX: A41.9 Sepsis, unspecified organism (principal); N17.9 Acute kidney failure, unspecified; E87.1 Hypo-osmolality and hyponatremia; N13.6 Pyonephrosis; E87.2 Acidosis; Z68.41 Body mass index [BMI] 40.0-44.9, adult; E86.0 Dehydration; Z66 Do not resuscitate; I48.0 Paroxysmal atrial fibrillation; K58.9 Irritable bowel syndrome, unspecified; I12.9 Hypertensive chronic kidney disease with stage 1 through stage 4 chronic kidney disease, or unspecified chronic kidney disease; E11.22 Type 2 diabetes mellitus with diabetic chronic kidney disease; E11.65 Type 2 diabetes mellitus with hyperglycemia; E66.9 Obesity, unspecified; N18.2 Chronic kidney disease, stage 2 (mild); G89.29 Other chronic pain; M25.569 Pain in unspecified knee; K21.9 Gastro-esophageal reflux disease without esophagitis; F32.A Depression, unspecified; F41.9 Anxiety disorder, unspecified; D64.9 Anemia, unspecified; B96.20 Unspecified Escherichia coli [E. coli] as the cause of diseases classified elsewhere; Z20.822 Contact with and (suspected) exposure to COVID-19; Z86.73 Personal history of transient ischemic attack (TIA), and cerebral infarction without residual deficits; Z85.850 Personal history of malignant neoplasm of thyroid; Z79.84 Long term (current) use of oral hypoglycemic drugs; Z79.82 Long term (current) use of aspirin
CPT/HCPCS: 99223-AI; 99232-AI; 99233-AI; 99239; C1769; C2617; J0282; J0690; J0696; J1100; J1644; J1815; J1885; J2185; J2270; J2405; J2704; J3010; J3370; J7030; J7040; J7050; J7060; J7120; Q9967

== ENCOUNTER 2021-09-19 10:12 | Inpatient (IN) | payer MEDICAID ==
[~2021-09-19] VITALS: Ht 172.7 cm; Wt 116.9 kg
[~2021-09-19 10:12] MED LIST changes: +ASPIRIN 32325 MG/TAB PO; +BETAPACE 120MG120 MG PO; +CYMBALTA 30MG30 MG PO; +ELAVIL100 MG PO; +ELIQUIS 5MG PO; +GLUCOPHAGE500 MG/TAB PO; +PRILOSEC 20MG20 MG PO; +TYLENOL 500MG500 MG PO
[2021-09-19 10:42] LABS: BASO % 0.3 % (0.0-2.0); EOS # 0.2 K/mm3 (0.0-0.7); EOS % 1.8 % (0.0-4.0); GRAN # 9.2 K/mm3 (1.4-6.5); GRAN % 70.3 % (42.2-75.2); HEMATOCRIT 38.9 % (37.0-47.0); HEMOGLOBIN 12.4 g/dl (12.5-16.0); LYMPH # 2.4 K/mm3 (1.2-3.4); LYMPH % 18.2 % (20.0-51.0); MEAN CELL VOLUME 87 fl (80.0-100.0); MEAN CORPUSCULAR HEMOGLOBIN 28 pg (27-31); MEAN CORPUSCULAR HGB CONC 32 g/dl (33.0-37.0); MEAN PLATELET VOLUME 8.8 fl (7.4-10.4); MONO # 1.1 K/mm3 (0.1-0.6); MONO % 8.4 % (1.7-9.3); PLATELET COUNT 406 K/mm3 (130-400); RED BLOOD COUNT 4.46 M/mm3 (4.10-5.30); REDCELL DISTRIBUTION WIDTH-CV 14.2 % (11.5-14.5)
[2021-09-19 10:49] LABS: INR 1.1 (0.8-3.0); PROTHROMBIN TIME 12.9 SECONDS (9.7-12.8)
[2021-09-19 10:52] LABS: PARTIAL THROMBOPLASTIN TIME 35.5 SECONDS (26.0-37.0)
[2021-09-19 11:02] LABS: ALANINE AMINOTRANSFERASE 19 U/L (0-55); ALBUMIN 3.2 gm/dL (3.5-5.0); ALKALINE PHOSPHATASE 101 U/L (40-150); ANION GAP 15 mmol/L (7-16); AST,SGOT 14 U/L (5-34); BILIRUBIN,TOTAL 0.5 mg/dL (0.2-1.2); BLOOD UREA NITROGEN 20 mg/dL (10-20); CALCIUM 9.5 mg/dL (8.4-10.2); CARBON DIOXIDE 24 mmol/L (22-29); CHLORIDE 99 mmol/L (98-107); CREATININE, serum 1.58 mg/dL (0.57-1.11); GLUCOSE 116 mg/dL (70-99); POTASSIUM 4.6 mmol/L (3.5-4.5); SODIUM 138 mmol/L (136-145)
[2021-09-19 11:09] LABS: TROPONIN-I < 0.010 ng/mL (0.00-0.033)
[2021-09-19 11:42] LABS: COLLECTION METHOD CLEAN CATCH
[2021-09-19 11:52] LABS: MUCOUS Present (NOT PRESENT); PH 6 (5-8); URINE APPEARANCE Cloudy (CLEAR/HAZY); URINE BACTERIA Moderate /hpf (NONE SEEN); URINE BILIRUBIN Negative (NEGATIVE); URINE BLOOD 1+ (NEGATIVE); URINE COLOR Yellow (YELLOW); URINE GLUCOSE Negative (NEGATIVE); URINE KETONE Trace (NEGATIVE); URINE LEUKOCYTE ESTERASE 3+ (NEGATIVE); URINE NITRATE Negative (NEGATIVE); URINE PROTEIN(semi-quant) Negative (NEGATIVE); URINE UROBILINOGEN Negative (NEGATIVE)
[2021-09-19] MEDS ORDERED: FLEXERIL 1010 MG/TAB PO (15:43)
[2021-09-19] MEDS ORDERED: NORCO 325 MG-51 TAB PO (15:44)
[2021-09-19] MEDS ORDERED: D3-5050000 IU PO (15:47)
[2021-09-19] MEDS ORDERED: 00186-0370-20 IH (15:48)
[2021-09-19] MEDS ORDERED: LIPITOR20 MG PO (15:48)
[2021-09-19] MEDS ORDERED: VOLTAREN GEL 1%1 TU TP (15:49)
[2021-09-19] MEDS ORDERED: LIDODERM 5% PATC1 EA TP (15:50)
[2021-09-19] MEDS ORDERED: PRIL40 PO (15:51)
[2021-09-19] MEDS ORDERED: ZOFRAN 4MG T4 MG/TAB PO (15:52)
--- NOTE | 2021-09-19 17:29 | NUR ---
PT ADMIT W UROSEPSIS, SEPSIS. FLUIDS STARTED, ANTIBOTICS. BS OBTAINED, EATING DINNER. MED REC DONE, UPDATED DR NEW ON UP TO DATE LIST AND TO PLEASE REVIEW. ASSESS AND HX OBTAINED. POC DISCUSSED. CALL LIGHT WI REACH. ROOM ORIENTATION.
[2021-09-19 20:32] VITALS: BP 107/56; PULSE 80; TEMP 98
[2021-09-20] VITALS (7 sets, daily range): BP systolic 93–115; BP diastolic 42–77; PULSE 66–76; TEMP 97.7–98.1
--- NOTE | 2021-09-20 04:45 | NUR ---
PT HAD A LOW B/P AROUND MIDNIGHT (93/42). HOSPITALIST CALLED. LITER BOLUS ORDERED AND GIVEN. PT'S B/P UP TO 107/52 AND THEN IN THE 110'S/50'S. CALL LIGHT WITHIN REACH.
[2021-09-20 06:19] LABS: BASO % 0.3 % (0.0-2.0); EOS # 0.3 K/mm3 (0.0-0.7); EOS % 3.6 % (0.0-4.0); GRAN # 5.1 K/mm3 (1.4-6.5); GRAN % 58.9 % (42.2-75.2); LYMPH # 2.1 K/mm3 (1.2-3.4); LYMPH % 24.7 % (20.0-51.0); MEAN CELL VOLUME 90 fl (80.0-100.0); MEAN CORPUSCULAR HGB CONC 31 g/dl (33.0-37.0); MONO % 11.8 % (1.7-9.3); RED BLOOD COUNT 3.34 M/mm3 (4.10-5.30); REDCELL DISTRIBUTION WIDTH-CV 14.4 % (11.5-14.5)
[2021-09-20 06:37] LABS: C-REACTIVE PROTEIN 5.84 mg/dL (0.00-0.50); CALCIUM 7.9 mg/dL (8.4-10.2); CREATININE, serum 1.14 mg/dL (0.57-1.11); MAGNESIUM 1.3 mg/dL (1.6-2.6); POTASSIUM 4.1 mmol/L (3.5-4.5)
[2021-09-20 06:40] LABS: HEMOGLOBIN 9.3 g/dl (12.5-16.0); MEAN CORPUSCULAR HEMOGLOBIN 28 pg (27-31); PLATELET COUNT 288 K/mm3 (130-400)
--- NOTE | 2021-09-20 09:41 | NUR ---
Scheduled medications given. Shift assessment preformed. VSS. Patient A&O. Patient states that she is having right sided aching pain rated a 7/10. Patient states that she does not require any pain medication at this time. Patient denies any further pain, discomfort, SOA, or further needs at this time. Fluids running as ordered. Call light in reach. Fall precautions in place.
--- NOTE | 2021-09-20 10:31 | NUR ---
SW met with the patient to discuss discharge plan. The patient lives alone in [place]. She reports independence with ADLs and has a cane and rollator. She states that she has 21 hours approved by insurance for in-home care. She receives private duty services from [facility] and house cleaning services from [facility] She has home health services from [facility] for intermediate/PT/OT. The patient's PCP is Dr. Nina Marrero and she receives her medications by delivery from [facility]. She states that she does not drive and [facility] will not deliver on Thursday or this coming Thursday, due to it being September 23. The patient does not have a DPOA-HC. She reports that she knows this is something she needs to do, but she is unsure of who she would designate. She states that she is not and that she has one child: Margie Pineda. Margie lives in [place] and the patient states that she has no contact with her. The patient has her old shower attendant from [facility], Sandra Smith (ph#[phone]), listed as her person to notify. The patient plans to return home and resume home health services from [facility] and her private duty services. She states that she will need transport home. *Discharge plan: home. Will need transportation set up through her Medicaid or [facility] and she will need a ride to [facility] for her prescriptions, if discharges on Thursday or Thursday*
[2021-09-21 00:29] VITALS: BP 106/44; PULSE 72; TEMP 98.2
--- NOTE | 2021-09-21 03:31 | NUR ---
ASSESSMENT COMPLETE FOR THIS SHIFT. PT RESTING IN BED WORKING ON HER IPAD. PT'S IV SITE WENT BAD. AFTER SEVERAL ATTEMPS, NEW IV STARTED TO LEFT UPPER ARM BY UNDERWRITING SERVICE REPRESENTATIVE. PT COMPLAINED OF A HEADACHE. PT GIVEN NORCO FOR PAIN. PT FELT PAIN MEDICATION WAS EFFECTIVE. PT DENIED CHEST PAIN, PALPITATIONS, N,V,D, SOB OR DIZZINESS. PT EXPRESSED NO OTHER NEEDS AT THIS TIME. CALL LIGHT WITHIN REACH.
[2021-09-21 04:28] VITALS: BP 102/54; PULSE 67; TEMP 97.4
[2021-09-21 06:02] LABS: BASO % 0.4 % (0.0-2.0); EOS # 0.3 K/mm3 (0.0-0.7); EOS % 4.4 % (0.0-4.0); GRAN # 3.9 K/mm3 (1.4-6.5); GRAN % 54.8 % (42.2-75.2); LYMPH % 28.5 % (20.0-51.0); MEAN CELL VOLUME 90 fl (80.0-100.0); MEAN CORPUSCULAR HGB CONC 31 g/dl (33.0-37.0); MONO # 0.8 K/mm3 (0.1-0.6); MONO % 11.3 % (1.7-9.3); PLATELET COUNT 296 K/mm3 (130-400); RED BLOOD COUNT 3.31 M/mm3 (4.10-5.30); REDCELL DISTRIBUTION WIDTH-CV 14.4 % (11.5-14.5)
[2021-09-21 06:15] LABS: HEMATOCRIT 29.9 % (37.0-47.0); HEMOGLOBIN 9.2 g/dl (12.5-16.0); MEAN CORPUSCULAR HEMOGLOBIN 28 pg (27-31)
[2021-09-21 06:22] LABS: CALCIUM 8.4 mg/dL (8.4-10.2); CREATININE, serum 0.98 mg/dL (0.57-1.11); MAGNESIUM 1.7 mg/dL (1.6-2.6); POTASSIUM 4.1 mmol/L (3.5-4.5)
[2021-09-21 08:14] VITALS: BP 132/69; PULSE 76; TEMP 97.7
[2021-09-21] MEDS ORDERED: ELIQUIS 5MG PO (08:31)
[2021-09-21] MEDS ORDERED: BETAPACE 120MG120 MG PO (08:32)
--- NOTE | 2021-09-21 09:15 | NUR ---
PATIENT DOING WELL THIS MORNING. NO COMPLAINTS. ABLE TO AMBULATE INDEPENDENTLY WITH WALKER. A&O X4. CONTINENT. IV PATENT AND ANTIBIOTICS INFUSING. PLAN TO DC HOME TODAY.
[2021-09-21] MEDS ORDERED: CEFTIN500 MG PO (09:49)
--- NOTE | 2021-09-21 11:00 | NUR ---
YESIKA informed patient would be dcing home on this day. YSEIKA spoke with patient in regards to DC. Patient provides she is ready to go to be able to sleep in her own bed. SW informed that patient would need transport set up. Patient states that she will be calling [facility] [employer] herself to obtain a ride. Patient also informed [facility] by physician, and would be delivered. Patient is aware that she will have to pay a small fee and is prepared to do so. Nothing further. Documenation sent to [facility] agency and called by YESIKA to inform of patient DC. Nothing further.
[2021-09-21 11:56] VITALS: BP 115/57; PULSE 67; TEMP 98
== END 2021-09-21 12:00 | disposition home health service (06) | DRG 872 ==
LOC: COL.ER 10:12 → MEDICAL 14:43
PROVIDERS: Emergency Medicine; Physician Assistant; ADMIT Internal Medicine
DX: A41.9 Sepsis, unspecified organism (principal); N17.9 Acute kidney failure, unspecified; N10 Acute pyelonephritis; N39.0 Urinary tract infection, site not specified; R65.20 Severe sepsis without septic shock; I95.9 Hypotension, unspecified; Z66 Do not resuscitate; E83.42 Hypomagnesemia; E11.9 Type 2 diabetes mellitus without complications; E66.9 Obesity, unspecified; M79.7 Fibromyalgia; I12.9 Hypertensive chronic kidney disease with stage 1 through stage 4 chronic kidney disease, or unspecified chronic kidney disease; E11.22 Type 2 diabetes mellitus with diabetic chronic kidney disease; N18.9 Chronic kidney disease, unspecified; G89.29 Other chronic pain; I48.0 Paroxysmal atrial fibrillation; I08.0 Rheumatic disorders of both mitral and aortic valves; Z85.850 Personal history of malignant neoplasm of thyroid; Z87.19 Personal history of other diseases of the digestive system; Z79.01 Long term (current) use of anticoagulants; Z86.73 Personal history of transient ischemic attack (TIA), and cerebral infarction without residual deficits; Z79.84 Long term (current) use of oral hypoglycemic drugs; Z68.39 Body mass index [BMI] 39.0-39.9, adult; Z23 Encounter for immunization
CPT/HCPCS: 99232-AI; J0696; J2405; J2543; J3475; J7030

== ENCOUNTER → 2021-12-11 | Outpatient (CLI) | payer MEDICAID ==
[~2021-12-11] MED LIST changes: +00186-0370-20 IH; +CEFTIN500 MG PO; +LIDODERM 5% PATC1 EA TP; +LIPITOR20 MG PO; +PRIL40 PO; +VOLTAREN GEL 1%1 TU TP
== END ==
LOC: COL.RAD 12:22
DX: G83.10 Monoplegia of lower limb affecting unspecified side (principal); R54 Age-related physical debility
CPT/HCPCS: A9575

== ENCOUNTER 2022-01-17 09:08 | Day surgery (SDC) | payer MEDICAID ==
[~2022-01-17] VITALS: Ht 172.7 cm; Wt 120.2 kg
[2022-01-17] MEDS ORDERED: ANTI-DIARRHEAL2 MG PO (10:01)
[2022-01-17] MEDS ORDERED: FLONASEALLERGY NS (10:04)
[2022-01-17] MEDS ORDERED: HCTZ12.5TAB PO (10:05)
[2022-01-17] MEDS ORDERED: PROTONIX 40MG T40 MG PO (10:05)
[2022-01-17] MEDS ORDERED: CRANBERRY250 MG PO (10:06)
[2022-01-17] MEDS ORDERED: MAGNESIUM500 MG PO (10:06)
[2022-01-17] MEDS ORDERED: NATURE'S BLEND500 M1 PO (10:07)
[2022-01-17 10:19] VITALS: BP 136/77; PULSE 71; TEMP 97.7
[2022-01-17 11:30] VITALS: BP 152/84; PULSE 75; TEMP 97.1
--- NOTE | 2022-01-17 11:41 | NUR ---
1130 - PT arrives from procedure and was settled by Marilyn CHAPARRO and Albertina RN. Verbal report then obtained. 1135 - PT A&Ox3. Denies pain/nasuea and was provided snack and drink per PT request. IVF continue. Call nova within reach and non-slip socks remain on.
[2022-01-17 11:45] VITALS: BP 136/77; PULSE 68
--- NOTE | 2022-01-17 11:53 | NUR ---
1145 - has spoken w/ PT. VSS. PT has finished snack and drink and is tolerating well. Continues to deny pain/nasuea. Call nova within reach. PT denies having questions following visit w/ .
[2022-01-17 12:00] VITALS: BP 128/69; PULSE 71
[2022-01-17 12:15] VITALS: BP 139/70; PULSE 73
--- NOTE | 2022-01-17 12:17 | NUR ---
1200 - VSS. Call nova within reach. PT resting in chair. IVF continue.
--- NOTE | 2022-01-17 12:22 | NUR ---
1215 - VSS. IV and monitors discontinued. Catheter tip intact and pressure bandage applied. NO redness or swelling noted. PT refused RN assistance changing into personal clothes; call nova within reach if needed and non-slip socks are on. Legs lowered and blankets removed.
--- NOTE | 2022-01-17 12:45 | NUR ---
1230 - PT has finished changing. DC instructions and educational material reviewed w/ PT who verbalized understanding and signed. Questions answered to PT satisfaction. [facility] was contacted for ride, but gave insufficent time. [facility] was contacted for will-call. Call nova within reach. PT notified and verbalized understanding and AOK.
--- NOTE | 2022-01-17 14:11 | NUR ---
1320 - PT dismissed from endo via wheelchair to the PT entrence by Norma CHAPARRO. Awaiting [facility]. 1345 - [facility] contacted, who stated ride fail. Case management contacted for ride pass. 1405 - Scheduled fork truck driver arrives for picker. PT assisted into car w/ personal belongings and DC packet, PT transferred into their care for ride home.
== END 2022-01-17 14:05 | disposition home or self-care (01) ==
LOC: SDCO 09:08
DX: K21.00 Gastro-esophageal reflux disease with esophagitis, without bleeding (principal); K44.9 Diaphragmatic hernia without obstruction or gangrene; K29.71 Gastritis, unspecified, with bleeding; T18.2XXA Foreign body in stomach, initial encounter; K31.89 Other diseases of stomach and duodenum; K21.9 Gastro-esophageal reflux disease without esophagitis; Z79.899 Other long term (current) drug therapy; X58.XXXA Exposure to other specified factors, initial encounter
CPT/HCPCS: J2704; J7120

== ENCOUNTER → 2022-12-02 | Outpatient (CLI) | payer MEDICAID ==
[~2022-12-02] MED LIST changes: +ANTI-DIARRHEAL2 MG PO; +ASPIRIN E.C. 8181 MG PO; +CALCIPOTRIENE0.005% TP; +CRANBERRY250 MG PO; +ELOCON0.1% TP; +FLONASEALLERGY NS; +HCTZ12.5TAB PO; +IMODIUM 2MG CAPS2 MG PO; +INDERAL 10MG10 MG PO; +MASON NATURAL2000 IU PO; +NATURE'S BLEND500 M1 PO; +PLETAL50 MG PO; +PRENATAL LOWIRON PO; +PRENATAL TABLET PO; +REGLAN 5MG T5 MG/TAB PO; +SAVELLA50 MG PO; +TEMOVATE0.05% TP
== END ==
LOC: MHCPAIN 09:22
DX: M47.816 Spondylosis without myelopathy or radiculopathy, lumbar region (principal); M54.50 Low back pain, unspecified; M17.0 Bilateral primary osteoarthritis of knee
CPT/HCPCS: G0463

== ENCOUNTER → 2022-12-29 | Outpatient (CLI) | payer MEDICAID | LOC: MHCPAIN 12-22 11:20 | DX: M17.0 Bilateral primary osteoarthritis of knee (principal); M25.561 Pain in right knee; M25.562 Pain in left knee | CPT/HCPCS: J3301 ==

== ENCOUNTER → 2023-01-01 | Outpatient (CLI) | payer MEDICAID | LOC: MHCPAIN 13:04 | DX: M47.817 Spondylosis without myelopathy or radiculopathy, lumbosacral region (principal); M54.50 Low back pain, unspecified | CPT/HCPCS: J0665; J2250; J3010 ==

== ENCOUNTER 2023-04-21 15:15 | Outpatient (RCR) | payer MEDICAID | END 2023-04-22 | disposition home or self-care (01) | LOC: MKS.ESL.OT | DX: G25.0 Essential tremor (principal) ==

== ENCOUNTER 2023-05-12 10:19 | Inpatient (IN) | payer MEDICARE, MEDICAID ==
[~2023-05-12] VITALS: Ht 172.7 cm; Wt 125.9 kg
[2023-05-12] VITALS (14 sets, daily range): BP systolic 105–142; BP diastolic 65–107; PULSE 75–129; TEMP 97.4–98.2
[2023-05-12 10:40] LABS: BASO % 0.2 % (0.0-2.0); EOS # 0.2 K/mm3 (0.0-0.7); EOS % 1.9 % (0.0-4.0); GRAN # 8.2 K/mm3 (1.4-6.5); GRAN % 66.6 % (42.2-75.2); HEMATOCRIT 45.8 % (37.0-47.0); HEMOGLOBIN 14.8 g/dl (12.5-16.0); LYMPH # 2.9 K/mm3 (1.2-3.4); LYMPH % 23.8 % (20.0-51.0); MEAN CELL VOLUME 92 fl (80.0-100.0); MEAN CORPUSCULAR HEMOGLOBIN 30 pg (27-31); MEAN CORPUSCULAR HGB CONC 32 g/dl (33.0-37.0); MEAN PLATELET VOLUME 9.9 fl (7.4-10.4); MONO # 0.9 K/mm3 (0.1-0.6); PLATELET COUNT 281 K/mm3 (130-400); RED BLOOD COUNT 4.99 M/mm3 (4.10-5.30); REDCELL DISTRIBUTION WIDTH-CV 12.9 % (11.5-14.5)
[2023-05-12 10:53] LABS: ALBUMIN 3.6 gm/dL (3.5-5.0); BILIRUBIN,TOTAL 0.4 mg/dL (0.2-1.2); CALCIUM 9.5 mg/dL (8.4-10.2); CREATININE, serum 1.19 mg/dL (0.57-1.11); MAGNESIUM 1.6 mg/dL (1.6-2.6); POTASSIUM 4.4 mmol/L (3.5-4.5); TOTAL PROTEIN 7.3 gm/dL (6.2-8.1)
[2023-05-12 10:59] LABS: TROPONIN-I 0.031 ng/mL (0.00-0.033)
[2023-05-12 11:05] LABS: INR 1.4 (0.8-3.0); PROTHROMBIN TIME 14.7 SECONDS (9.7-12.8)
[2023-05-12 11:07] LABS: PARTIAL THROMBOPLASTIN TIME 36.5 SECONDS (26.0-37.0)
[2023-05-12 11:56] LABS: COLLECTION METHOD CLEAN CATCH
[2023-05-12] MEDS ORDERED: Ondansetron 4 MG/2 ML VIAL IV PRN ×2 (12:00→16:45)
[2023-05-12] MEDS ORDERED: Polyethylene Glycol 3350 17 GM PDS PO PRN (12:00)
[2023-05-12] MEDS ORDERED: Docusate Sodium 100 MG CAP PO PRN (12:00)
[2023-05-12] MEDS ORDERED: Acetaminophen 325 MG TAB PO PRN ×2 (12:00→16:45)
[2023-05-12 12:08] LABS: PH 6.5 (5.0-8.5); URINE APPEARANCE CLEAR (CLEAR/HAZY); URINE BLOOD NEGATIVE (NEGATIVE); URINE COLOR Dark Yellow (YELLOW); URINE GLUCOSE TRACE (NEGATIVE); URINE KETONE TRACE (NEGATIVE); URINE NITRATE NEGATIVE (NEGATIVE); URINE PROTEIN(semi-quant) TRACE (NEGATIVE)
[2023-05-12] MEDS ORDERED: LR 1,000 ML IV SCH (12:15)
--- NOTE | 2023-05-12 13:10 | NUR ---
PATIENT ARRIVED TO UNIT AWAKE AND ALERT, AND ORIENTED.CARDIZEM DRIP GOING AT 10MG/HR PATIENT VSS BESIDE HR. CURENTLY 126 BEATS PER MINUTE. HOSPTALIST INFORMED AND EKG ORDERED. PATIENT CURRENTLY SITTING UP IN BED, IV CARDIZEM INFUSING ORDERED, PA AT BEDSIDE. RESPIRATORY WAITING OUTSIDE TO DO EKG.
--- NOTE | 2023-05-12 13:15 | NUR ---
PER BRANCH SALES AND SERVICE REPRESENTATIVE OK OT GIVE IV ZOFRAN HOWEVER VORB TO HOLD LOVENOX AT THIS TIME.
[2023-05-12] MEDS ORDERED: cefTRIAXone 2 G in Water For Injection,Sterile 20 ML IV SCH ×2 (13:30→17:00)
[2023-05-12] MEDS ORDERED: NEURONTIN300 MG/CAP PO (14:18)
--- NOTE | 2023-05-12 14:21 | NUR ---
[facility] TO FAX PATIENT MED LIST
[2023-05-12] MEDS ORDERED: CYANOCOBAL1000 MCG/M IM (15:03)
[2023-05-12] MEDS ORDERED: Lidocaine PF 2% (20 MG/ML) 5 ML VIAL ONE (15:20)
--- NOTE | 2023-05-12 16:10 | NUR ---
EMERSON ARRIVED TO UNIT FROM PACU AWAKE AND ALERT,IN STABLE CONDITOIN. VSS. PATIENT CURRENTLY IN NSR HR OF 76. PATIENTS CALL LIGHT WITHIN REACH. POST OP VITAL SIGNS INITIATED.
[2023-05-12] MEDS ORDERED: Magnesium Sulfate 4% 50 ML IV ONE (16:30)
[2023-05-12] MEDS ORDERED: Dextrose (Glucose) 15 GM (4 x 3.75 GM) Chewable TABLET PACK PO PRN (17:00)
[2023-05-12] MEDS ORDERED: Dextrose 50% Water 25 GM/50 ML SYRINGE IV PRN (17:00)
[2023-05-12] MEDS ORDERED: Insulin Aspart (NovoLOG) SQ SCH (17:00)
[2023-05-12] MEDS ORDERED: Glucagon 1 MG VIAL IM PRN (17:00)
--- NOTE | 2023-05-12 18:30 | NUR ---
PATIENT AWAKE AND ALERT, SITTING UP IN BED. DENIES ANY NEEDS OR COMPLAINTS AT THIS TIME. [facility].
[2023-05-12] MEDS ORDERED: Apixaban 5 MG TAB PO SCH (21:00)
[2023-05-12] MEDS ORDERED: Docusate Sodium 100 MG CAP PO SCH (21:00)
--- NOTE | 2023-05-12 21:00 | NUR ---
UPON SHIFT ASSESSMENT, MEENU WAS AWAKE IN BED AND AXO X 4 . SHE DENIES CHEST PAIN AND SOA. SHE C/O OF IN ABDOMEN SHE STATES IS R/T HX OF DIVERTICULITIS. BOWEL SOUNDS AUDIBLE AND VS ARE WNL. TELE IS NS. CALL LIGHT WITHIN REACH.
[2023-05-13 01:12] VITALS: BP_SYST 118
--- NOTE | 2023-05-13 01:56 | NUR ---
ROUNDED ON PATIENT-SLEEPING PEACEFULLY, TELE IS NS 84 BPM.
--- NOTE | 2023-05-13 03:06 | NUR ---
PATIENT C/O 10/30 LUDWIG. VS WNL. PRN TYLENOL ADMINISTERED
[2023-05-13 03:14] VITALS: BP 129/81; PULSE 82; TEMP 98.1
[2023-05-13 05:06] VITALS: BP_SYST 129
--- NOTE | 2023-05-13 05:30 | NUR ---
DC'D LT WRIST IV-DISLODGED. CATHETER INTACT.
[2023-05-13 07:10] VITALS: BP 128/84; PULSE 79; TEMP 97.8
--- NOTE | 2023-05-13 07:30 | NUR ---
Patient sitting up in bed, A&Ox4. VSS. IV CDI. Denies pain and discomfort. Call light within reach.
[2023-05-13 07:31] VITALS: BP_SYST 128
[2023-05-13] MEDS ORDERED: Polyethylene Glycol 3350 17 GM PDS PO SCH (09:00)
[2023-05-13 11:13] VITALS: BP 119/87; PULSE 76; TEMP 98.2
[2023-05-13] MEDS ORDERED: BETAPACE AF160 MG PO (11:16)
[2023-05-13 11:19] LABS: CALCIUM 9.3 mg/dL (8.4-10.2); CREATININE, serum 1.12 mg/dL (0.57-1.11); POTASSIUM 3.5 mmol/L (3.5-4.5)
--- NOTE | 2023-05-13 11:55 | NUR ---
Discharge paperwork reviewed with the patient. Patient verbalized an understanding to follow doctors orders. IV removed, tip intact. Gauze and coban applied. Patient getting dressed. No further needs expressed. Call light within reach
--- NOTE | 2023-05-13 12:10 | NUR ---
Patient taken by wheelchair to ER entrance and calling a lyft. No further needs expressed. Dicharge paperwork and personal belonings with the patient.
--- NOTE | 2023-05-13 12:34 | NUR ---
SW attended clincial rounding with interdisciplinary team. Patient is medically ready for discharge. SW reviewed PT/OT notes whom state patient has home health and outpatient OT and their recommendations is to continue these services upon discharge. skip pit worker and SW Student met with patient to discuss discharge planning. Patient reports she lives alone in [place]. SW asked for a point of contact and patient stated she has no one to contact. Later patient stated she has an ex- but would not provide the contact information. PCP is Dr. Marrero, pharmacy is [facility]. Patient has a couple of medications that she has struggled to afford. SW provided information on [facility] and Single [facility]. SW also recommended to speak with her primary care physician and pharmacy to see if there was any medication savings programs. Patient does not have a DPOA-HC and does not want to establish one without speaking with her ex-. DME has a walker, shower chair and bed rails. Reports independent with ADLS. Patient uses [employer] for public transportation and [employer] for appointment transportation. Patient reports she has outpatient OT at [facility] and home care services through [facility]. Discharge plan: Home with continued OP OT and home care services
--- NOTE | 2023-05-13 12:38 | NUR ---
Initial visit; Patient states she iis doing well and hopes to be discharded to home today. Coo mentioned that it was nice meeting her and wished her well and God's blessings.
== END 2023-05-13 12:10 | disposition home or self-care (01) | DRG 309 ==
LOC: COL.ER 10:19 → MEDICAL 11:43
PROVIDERS: Family Medicine; ADMIT Internal Medicine
PROC: 5A2204Z Restoration of Cardiac Rhythm, Single (ICD-10-PCS; principal; 2023-05-12)
DX: I48.92 Unspecified atrial flutter (principal); N39.0 Urinary tract infection, site not specified; I48.0 Paroxysmal atrial fibrillation; I08.1 Rheumatic disorders of both mitral and tricuspid valves; Z66 Do not resuscitate; M79.7 Fibromyalgia; I44.0 Atrioventricular block, first degree; F41.9 Anxiety disorder, unspecified; F32.A Depression, unspecified; G43.909 Migraine, unspecified, not intractable, without status migrainosus; E11.43 Type 2 diabetes mellitus with diabetic autonomic (poly)neuropathy; H26.9 Unspecified cataract; K21.9 Gastro-esophageal reflux disease without esophagitis; I11.0 Hypertensive heart disease with heart failure; I50.9 Heart failure, unspecified; K31.84 Gastroparesis; L40.9 Psoriasis, unspecified; D64.9 Anemia, unspecified; E78.5 Hyperlipidemia, unspecified; E83.42 Hypomagnesemia; G89.29 Other chronic pain; M54.9 Dorsalgia, unspecified; Z87.442 Personal history of urinary calculi; Z86.73 Personal history of transient ischemic attack (TIA), and cerebral infarction without residual deficits; Z87.19 Personal history of other diseases of the digestive system; Z85.850 Personal history of malignant neoplasm of thyroid; Z79.82 Long term (current) use of aspirin; Z79.01 Long term (current) use of anticoagulants; Z79.899 Other long term (current) drug therapy; Z79.84 Long term (current) use of oral hypoglycemic drugs; Z87.891 Personal history of nicotine dependence; Z23 Encounter for immunization
CPT/HCPCS: J0696; J1815; J2405; J2704; J3475; J7120

== ENCOUNTER 2023-06-03 11:26 | Emergency (ER) | payer MEDICAID ==
[~2023-06-03] VITALS: Ht 165.1 cm; Wt 122.7 kg
[~2023-06-03 11:26] MED LIST changes: +BETAPACE AF160 MG PO; +CYANOCOBAL1000 MCG/M IM
[2023-06-03 11:35] VITALS: TEMP 97
[2023-06-03 12:17] LABS: BASO % 0.3 % (0.0-2.0); EOS # 0.1 K/mm3 (0.0-0.7); EOS % 0.9 % (0.0-4.0); GRAN # 10.1 K/mm3 (1.4-6.5); GRAN % 64.7 % (42.2-75.2); HEMATOCRIT 50.7 % (37.0-47.0); HEMOGLOBIN 16.4 g/dl (12.5-16.0); LYMPH # 4.2 K/mm3 (1.2-3.4); MEAN CELL VOLUME 91 fl (80.0-100.0); MEAN CORPUSCULAR HEMOGLOBIN 29 pg (27-31); MEAN CORPUSCULAR HGB CONC 32 g/dl (33.0-37.0); MEAN PLATELET VOLUME 9.9 fl (7.4-10.4); MONO % 6.5 % (1.7-9.3); PLATELET COUNT 417 K/mm3 (130-400); RED BLOOD COUNT 5.57 M/mm3 (4.10-5.30)
[2023-06-03 12:45] LABS: TROPONIN-I 0.017 ng/mL (0.00-0.033)
[2023-06-03 12:47] LABS: BILIRUBIN,TOTAL 0.8 mg/dL (0.2-1.2); CALCIUM 10.2 mg/dL (8.4-10.2); CREATININE, serum 1.25 mg/dL (0.57-1.11); POTASSIUM 4.1 mmol/L (3.5-4.5); TOTAL PROTEIN 7.8 gm/dL (6.2-8.1)
[2023-06-03] MEDS ORDERED: TOPROL XL 50MG50 MG PO (14:22)
[2023-06-03] MEDS ORDERED: TAMBOCOR 1100 MG/TAB PO (14:22)
[2023-06-03 14:40] LABS: COLLECTION METHOD CLEAN CATCH
[2023-06-03 15:12] LABS: URINE APPEARANCE CLOUDY (CLEAR/HAZY); URINE BLOOD NEGATIVE (NEGATIVE); URINE COLOR Dark Yellow (YELLOW); URINE GLUCOSE NEGATIVE (NEGATIVE); URINE KETONE 1+ (NEGATIVE); URINE NITRATE NEGATIVE (NEGATIVE); URINE PROTEIN(semi-quant) 1+ (NEGATIVE)
[2023-06-03 15:39] LABS: URINE BACTERIA MANY /hpf (NONE SEEN)
[2023-06-03 15:42] VITALS: BP 125/91; PULSE 76
[2023-06-03] MEDS ORDERED: CEFTIN500 MG PO (16:07)
== END 2023-06-03 15:41 | disposition home or self-care (01) ==
LOC: COL.ER 11:26
PROVIDERS: Physician Assistant
DX: I48.91 Unspecified atrial fibrillation (principal); I48.92 Unspecified atrial flutter; Z79.01 Long term (current) use of anticoagulants; Z79.899 Other long term (current) drug therapy

== ENCOUNTER 2023-06-05 23:27 | Emergency (ER) | payer MEDICAID ==
[~2023-06-05] VITALS: Ht 167.6 cm; Wt 109.1 kg
[~2023-06-05 23:27] MED LIST changes: +TAMBOCOR 1100 MG/TAB PO; +TOPROL XL 50MG50 MG PO
[2023-06-06 00:05] VITALS: TEMP 97.7
[2023-06-06] MEDS ORDERED: Oxymetazoline 0.05% Nasal Spray 30 ML BOTTLE NS ONE (00:15)
[2023-06-06] MEDS ORDERED: Metoclopramide 10 MG TAB PO ONE (00:45)
[2023-06-06 01:05] LABS: BASO % 0.3 % (0.0-2.0); EOS # 0.2 K/mm3 (0.0-0.7); EOS % 1.1 % (0.0-4.0); HEMATOCRIT 41.9 % (37.0-47.0); LYMPH % 21.1 % (20.0-51.0); MEAN CELL VOLUME 92 fl (80.0-100.0); MEAN CORPUSCULAR HGB CONC 32 g/dl (33.0-37.0); MEAN PLATELET VOLUME 9.5 fl (7.4-10.4); MONO # 0.8 K/mm3 (0.1-0.6); MONO % 5.9 % (1.7-9.3); RED BLOOD COUNT 4.55 M/mm3 (4.10-5.30); REDCELL DISTRIBUTION WIDTH-CV 13.2 % (11.5-14.5)
[2023-06-06 01:09] LABS: HEMOGLOBIN 13.2 g/dl (12.5-16.0); MEAN CORPUSCULAR HEMOGLOBIN 29 pg (27-31); PLATELET COUNT 292 K/mm3 (130-400)
[2023-06-06 01:23] LABS: CALCIUM 8.3 mg/dL (8.4-10.2); CREATININE, serum 1.19 mg/dL (0.57-1.11); POTASSIUM 3.4 mmol/L (3.5-4.5)
[2023-06-06 01:33] LABS: INR 1.4 (0.8-3.0); PROTHROMBIN TIME 15.3 SECONDS (9.7-12.8)
[2023-06-06 01:35] LABS: PARTIAL THROMBOPLASTIN TIME 35.2 SECONDS (26.0-37.0)
[2023-06-06 01:48] VITALS: BP 131/103; PULSE 99
== END 2023-06-06 01:55 | disposition home or self-care (01) ==
LOC: COL.ER 23:27
PROVIDERS: Emergency Medicine
DX: R04.0 Epistaxis (principal); I48.0 Paroxysmal atrial fibrillation; E87.6 Hypokalemia; Z79.01 Long term (current) use of anticoagulants

== ENCOUNTER 2023-06-16 14:30 | Outpatient (RCR) | payer MEDICAID | END 2023-06-21 | disposition home or self-care (01) | LOC: MKS.ESL.OT | DX: G25.0 Essential tremor (principal) ==

== ENCOUNTER 2023-07-24 15:55 | Observation (INO) | payer MEDICARE, MEDICAID ==
[~2023-07-24] VITALS: Ht 175.3 cm; Wt 127.2 kg
[~2023-07-24 15:55] MED LIST changes: -CYMBALTA 30MG30 MG PO; -MASON NATURAL2000 IU PO; +NEURONTIN600 MG/TAB PO
[2023-07-24 16:56] LABS: BASO % 0.2 % (0.0-2.0); EOS # 0.1 K/mm3 (0.0-0.7); EOS % 0.7 % (0.0-4.0); GRAN # 10.6 K/mm3 (1.4-6.5); GRAN % 74.7 % (42.2-75.2); HEMATOCRIT 39.8 % (37.0-47.0); HEMOGLOBIN 12.7 g/dl (12.5-16.0); LYMPH # 2.5 K/mm3 (1.2-3.4); LYMPH % 17.6 % (20.0-51.0); MEAN CELL VOLUME 91 fl (80.0-100.0); MEAN CORPUSCULAR HEMOGLOBIN 29 pg (27-31); MEAN CORPUSCULAR HGB CONC 32 g/dl (33.0-37.0); MEAN PLATELET VOLUME 9.1 fl (7.4-10.4); MONO # 0.9 K/mm3 (0.1-0.6); MONO % 6.2 % (1.7-9.3); PLATELET COUNT 313 K/mm3 (130-400); REDCELL DISTRIBUTION WIDTH-CV 14.4 % (11.5-14.5)
[2023-07-24 17:11] LABS: ALANINE AMINOTRANSFERASE 15 U/L (0-55); ALBUMIN 3.5 g/dL (3.5-5.0); ALKALINE PHOSPHATASE 91 U/L (40-150); ANION GAP 15 mmol/L (7-16); AST,SGOT 13 U/L (5-34); BILIRUBIN,TOTAL 0.6 mg/dL (0.2-1.2); BLOOD UREA NITROGEN 16 mg/dL (10-20); CALCIUM 9.3 mg/dL (8.4-10.2); CHLORIDE 99 mEq/L (98-107); CREATININE, serum 1.36 mg/dL (0.57-1.11); GLUCOSE 111 mg/dL (70-99); POTASSIUM 4.4 mEq/L (3.5-4.5); SODIUM 136 mEq/L (136-145); TOTAL PROTEIN 7.2 g/dl (6.2-8.1)
[2023-07-24 17:16] LABS: MAGNESIUM < 0.9 mg/dL (1.6-2.6)
[2023-07-24 17:21] LABS: TROPONIN-I < 0.010 ng/mL (0.00-0.033)
[2023-07-24 17:22] LABS: COLLECTION METHOD CLEAN CATCH
[2023-07-24] MEDS ORDERED: Magnesium Sulfate 4% 50 ML IV ONE ×2 (17:30→18:15)
[2023-07-24 17:34] LABS: PH 5.5 (5.0-8.5); URINE APPEARANCE CLEAR (CLEAR/HAZY); URINE BLOOD TRACE (NEGATIVE); URINE COLOR Dark Yellow (YELLOW); URINE GLUCOSE NEGATIVE (NEGATIVE); URINE KETONE TRACE (NEGATIVE); URINE NITRATE NEGATIVE (NEGATIVE); URINE PROTEIN(semi-quant) TRACE (NEGATIVE)
[2023-07-24] MEDS ORDERED: COREG 6.256.25 MG/TA PO (17:46)
[2023-07-24] MEDS ORDERED: PROZAC 20MG20 MG PO (17:47)
[2023-07-24] MEDS ORDERED: CIPRO 500MG TA500 MG PO (17:48)
[2023-07-24] MEDS ORDERED: FLOMAX 0.40.4 MG/CAP PO (17:49)
[2023-07-24] MEDS ORDERED: LACTAID3000 UNIT PO (17:49)
[2023-07-24] MEDS ORDERED: DULERA1 AR1 IH (17:50)
[2023-07-24] MEDS ORDERED: Acetaminophen 325 MG TAB PO PRN (19:00)
[2023-07-24 19:33] LABS: PHOSPHOROUS 3.5 mg/dL (2.3-4.7)
[2023-07-24 19:55] LABS: THYROID STIMULATING HORMONE 1.142 uIU/mL (0.350-4.940)
[2023-07-24 19:59] VITALS: BP 126/75; PULSE 82; TEMP 97.9
[2023-07-24] MEDS ORDERED: PHARMASSURE MA500 MG PO (20:03)
[2023-07-24] MEDS ORDERED: Carvedilol 6.25 MG TAB PO SCH (22:25)
[2023-07-24] MEDS ORDERED: NEURONTIN300 MG/CAP PO ×2 (22:28)
[2023-07-24] MEDS ORDERED: Gabapentin 300 MG CAP PO SCH (22:29)
[2023-07-24] MEDS ORDERED: Apixaban 5 MG TAB PO SCH (22:33)
[2023-07-24] MEDS ORDERED: Amitriptyline 50 MG TAB PO SCH (22:36)
[2023-07-24] MEDS ORDERED: ELAVIL150 MG PO (22:36)
[2023-07-24] MEDS ORDERED: FLONASE NASAL S16 GM NS (22:36)
[2023-07-24] MEDS ORDERED: Mometasone/Formoterol 200/5 MCG MDI IH SCH (22:37)
[2023-07-24] MEDS ORDERED: LIPITOR 40MG TA40 MG PO (22:38)
[2023-07-24] MEDS ORDERED: Atorvastatin 40 MG TAB PO SCH (22:38)
[2023-07-24] MEDS ORDERED: Pantoprazole 40 MG in NS 10 ML IV SCH (22:44)
[2023-07-24] MEDS ORDERED: Lactase 9,000 Units TAB PO PRN (22:45)
[2023-07-24] MEDS ORDERED: cefTRIAXone 2 G in Water For Injection,Sterile 20 ML IV SCH (23:00)
[2023-07-24] MEDS ORDERED: Dextrose (Glucose) 15 GM (4 x 3.75 GM) Chewable TABLET PACK PO PRN (23:15)
[2023-07-24] MEDS ORDERED: Dextrose 50% Water 25 GM/50 ML SYRINGE IV PRN (23:15)
[2023-07-24] MEDS ORDERED: Glucagon 1 MG VIAL IM PRN (23:15)
[2023-07-24 23:19] VITALS: BP 129/73; PULSE 69; TEMP 98.1
[2023-07-25] VITALS (8 sets, daily range): BP systolic 93–140; BP diastolic 58–85; PULSE 71–77; TEMP 97.8–98.3
[2023-07-25] MEDS ORDERED: Loperamide 2 MG CAP PO PRN (00:45)
[2023-07-25 06:54] LABS: BASO % 0.4 % (0.0-2.0); EOS # 0.1 K/mm3 (0.0-0.7); EOS % 1.6 % (0.0-4.0); GRAN # 5.7 K/mm3 (1.4-6.5); GRAN % 67.6 % (42.2-75.2); LYMPH # 1.8 K/mm3 (1.2-3.4); LYMPH % 21.6 % (20.0-51.0); MEAN CELL VOLUME 88 fl (80.0-100.0); MEAN CORPUSCULAR HEMOGLOBIN 28 pg (27-31); MEAN CORPUSCULAR HGB CONC 32 g/dl (33.0-37.0); MEAN PLATELET VOLUME 9.2 fl (7.4-10.4); MONO # 0.7 K/mm3 (0.1-0.6); MONO % 8.2 % (1.7-9.3); PLATELET COUNT 273 K/mm3 (130-400); RED BLOOD COUNT 3.87 M/mm3 (4.10-5.30); REDCELL DISTRIBUTION WIDTH-CV 14.3 % (11.5-14.5)
[2023-07-25] MEDS ORDERED: Budesonide Neb Susp 0.5 MG/2 ML AMP IH SCH (07:00)
[2023-07-25] MEDS ORDERED: Formoterol Neb Soln 20 MCG/2 ML UD IH SCH (07:00)
[2023-07-25 07:12] LABS: CALCIUM 8.4 mg/dL (8.4-10.2); CREATININE, serum 1.19 mg/dL (0.57-1.11); POTASSIUM 3.5 mEq/L (3.5-4.5)
[2023-07-25 07:13] LABS: HEMATOCRIT 34.1 % (37.0-47.0)
[2023-07-25] MEDS ORDERED: Insulin Lispro (HumaLOG) SQ SCH (08:00)
[2023-07-25] MEDS ORDERED: Magnesium Oxide 400 MG TAB PO SCH (08:00)
--- NOTE | 2023-07-25 08:45 | NUR ---
Patient resting in bed. She was up to the bathroom this am, voiding without problems. Tolerated breakfast well. No need for insulin. blood glucose stable. INT re dressed. Patient reports chronic back pain that is elevated. [place] as ordered. Will monitor
[2023-07-25] MEDS ORDERED: DULoxetine 60 MG CAP PO SCH (09:00)
[2023-07-25] MEDS ORDERED: Pantoprazole 40 MG in NS 10 ML IV SCH (09:00)
[2023-07-25] MEDS ORDERED: Cholecalciferol (Vit D3) 1000 Units TAB PO SCH (09:00)
[2023-07-25] MEDS ORDERED: Lidocaine 4% Topical Patch TP SCH (09:00)
[2023-07-25] MEDS ORDERED: Cilostazol 100 MG TAB PO SCH (09:00)
[2023-07-25] MEDS ORDERED: Fluticasone Nasal 50 MCG/Spray 16 GM BOTTLE NS SCH (09:00)
[2023-07-25] MEDS ORDERED: Prenatal Vitamins/Iron/FA TAB PO SCH (09:00)
--- NOTE | 2023-07-25 09:32 | NUR ---
SW met with patient to complete intake and discuss discharge planning. Patient shared that she resides in [place], her NOK on file is incorrect and she would like to change to her daughter Margie Pineda in [place], she does not have a phone number at this time but would work on getting for SW. Patient reports that current DMEs: rollator walker & shower chair. Patient reports that she is independent with most of her ADLs but does have homecare and hospice assist her. Patient PCP is Dr. Marrero and pharmacy of choice is [facility]. Patient does not have DPOA, was provided information about forms availability with hospital, she decline to complete at this time. Discharge plan: home (pending medical recommendations/orders)
--- NOTE | 2023-07-25 10:58 | NUR ---
Patient resting in bed, report pain is improved after [place]. Going to order lunch. Will monitor
--- NOTE | 2023-07-25 11:35 | NUR ---
Data: Patient declined [employer] visit offered during [employer] rounds. Assessment: Patient declined. Plan of Care: Chaplains will remain available as requested while Patient is admitted to this hospital.
[2023-07-25] MEDS ORDERED: Gabapentin 300 MG CAP PO SCH (12:00)
--- NOTE | 2023-07-25 14:21 | NUR ---
Patient has been napping this afternoon without needs. Will monitor
--- NOTE | 2023-07-25 14:54 | NUR ---
Patient sitting up in bed eating a late lunch. Will monitor
--- NOTE | 2023-07-25 18:56 | NUR ---
Patient resting in bed. Did well with Dinner. Denies needs. Bedside report to Shannon to resume cares
[2023-07-26 01:00] VITALS: BP_SYST 110
--- NOTE | 2023-07-26 01:54 | NUR ---
PT ALERT AND ORIENTED. SAYS SHE FEELS BETTER AFTER HAVING HER MAGNESIUM REPLACED. SHE IS NOW ON ORAL MAG AND SAYS SHE PLANS TO CONTINUE TAKING WHEN SHE GETS HOME, WAS OUT OF HER BOTTLE OF MAG TABS PO THAT SHE WAS TAKING AT HOME. AT BEDTIME SHE C/O OF A HEADACHE RATED 8/10 AND WAS MEDICATED WITH TYLWNOL AND NORCO PER PT REQUEST. PER PT REPORT SHE IS TO DISCHARGE TODAY. ASSESSED, MEDICATED AND IS DENYING FURTHER NEED. CALL LIGHT WITHIN REACH, BED ALARM ENGAGED.
[2023-07-26 03:27] VITALS: BP 108/69; PULSE 82; TEMP 98
[2023-07-26 05:12] VITALS: BP_SYST 108
[2023-07-26 06:59] LABS: BASO % 0.3 % (0.0-2.0); EOS # 0.1 K/mm3 (0.0-0.7); EOS % 2.3 % (0.0-4.0); GRAN # 3.8 K/mm3 (1.4-6.5); GRAN % 63.5 % (42.2-75.2); HEMOGLOBIN 10.6 g/dl (12.5-16.0); LYMPH # 1.5 K/mm3 (1.2-3.4); LYMPH % 24.6 % (20.0-51.0); MEAN CELL VOLUME 88 fl (80.0-100.0); MEAN CORPUSCULAR HEMOGLOBIN 29 pg (27-31); MEAN CORPUSCULAR HGB CONC 33 g/dl (33.0-37.0); MEAN PLATELET VOLUME 9.1 fl (7.4-10.4); MONO # 0.5 K/mm3 (0.1-0.6); PLATELET COUNT 230 K/mm3 (130-400); RED BLOOD COUNT 3.71 M/mm3 (4.10-5.30); REDCELL DISTRIBUTION WIDTH-CV 14.4 % (11.5-14.5)
[2023-07-26 07:18] VITALS: BP 110/70; PULSE 77; TEMP 97.6
[2023-07-26 07:21] LABS: HEMATOCRIT 32.6 % (37.0-47.0)
--- NOTE | 2023-07-26 08:00 | NUR ---
Patient sittiing up in bed, A&Ox4. VSS. IV CDI. Denies pain and discomfort. Call light within reach
[2023-07-26 11:12] LABS: CALCIUM 8.5 mg/dL (8.4-10.2); CREATININE, serum 1.16 mg/dL (0.57-1.11); POTASSIUM 3.5 mEq/L (3.5-4.5)
[2023-07-26 11:22] VITALS: BP 133/72; PULSE 78; TEMP 98
[2023-07-26] MEDS ORDERED: MAG-OX 400400 MG/TAB PO (13:52)
[2023-07-26] MEDS ORDERED: Magnesium Sulfate 4% 50 ML IV ONE (14:00)
[2023-07-26] MEDS ORDERED: cefTRIAXone 2 G in Water For Injection,Sterile 20 ML IV SCH (14:30)
--- NOTE | 2023-07-26 16:14 | NUR ---
Discharge paperwork reviewed with the patient. Patient verbalized an understanding to follow doctors orders. IV removed, tip intact. Gauze and coban applied. No further needs expressed. Patient wanting to eat dinner before living. Call light within reach
--- NOTE | 2023-07-26 17:05 | NUR ---
Patient ambulated independently to awaiting vehicle without telling nursing staff. Nurse walked into an empty room. Nurse instructed the patient to call nursing staff when ready to go
== END 2023-07-26 17:05 | disposition home or self-care (01) ==
LOC: COL.ER 15:55 → MEDICAL 19:12
PROVIDERS: Nurse Practitioner Family; Physician Assistant; ADMIT Internal Medicine
DX: E83.42 Hypomagnesemia (principal); E78.5 Hyperlipidemia, unspecified; I48.0 Paroxysmal atrial fibrillation; I08.0 Rheumatic disorders of both mitral and aortic valves; K31.84 Gastroparesis; K58.0 Irritable bowel syndrome with diarrhea; A41.51 Sepsis due to Escherichia coli [E. coli]; N39.0 Urinary tract infection, site not specified; R65.20 Severe sepsis without septic shock; N18.31 Chronic kidney disease, stage 3a; E11.22 Type 2 diabetes mellitus with diabetic chronic kidney disease; C73 Malignant neoplasm of thyroid gland; K21.9 Gastro-esophageal reflux disease without esophagitis; E11.43 Type 2 diabetes mellitus with diabetic autonomic (poly)neuropathy; F32.A Depression, unspecified; I12.9 Hypertensive chronic kidney disease with stage 1 through stage 4 chronic kidney disease, or unspecified chronic kidney disease; M79.7 Fibromyalgia; G89.29 Other chronic pain; Z79.82 Long term (current) use of aspirin; Z79.84 Long term (current) use of oral hypoglycemic drugs; Z79.899 Other long term (current) drug therapy; Z86.73 Personal history of transient ischemic attack (TIA), and cerebral infarction without residual deficits; Z87.891 Personal history of nicotine dependence
CPT/HCPCS: C9113; G0378; J0696; J1815; J3475

== ENCOUNTER 2023-11-24 13:30 | Emergency (ER) | payer MEDICARE, MEDICAID ==
[~2023-11-24] VITALS: Ht 172.7 cm; Wt 116.8 kg
[~2023-11-24 13:30] MED LIST changes: +CIPRO 500MG TA500 MG PO; +COREG 6.256.25 MG/TA PO; +DULERA1 AR1 IH; +ELAVIL150 MG PO; +FLOMAX 0.40.4 MG/CAP PO; +FLONASE NASAL S16 GM NS; +LACTAID3000 UNIT PO; +LIPITOR 40MG TA40 MG PO; +PHARMASSURE MA500 MG PO; +PROZAC 20MG20 MG PO
[2023-11-24 13:35] VITALS: TEMP 98.5
[2023-11-24] MEDS ORDERED: NS 1,000 ML IV ONE (14:30)
[2023-11-24 15:11] LABS: COLLECTION METHOD CLEAN CATCH
[2023-11-24 15:15] LABS: BASO % 0.1 % (0.0-2.0); EOS # 0.1 K/mm3 (0.0-0.7); EOS % 0.6 % (0.0-4.0); GRAN % 70.1 % (42.2-75.2); HEMATOCRIT 42.9 % (37.0-47.0); LYMPH # 2.2 K/mm3 (1.2-3.4); LYMPH % 19.6 % (20.0-51.0); MEAN CELL VOLUME 84 fl (80.0-100.0); MEAN CORPUSCULAR HEMOGLOBIN 25 pg (27-31); MEAN CORPUSCULAR HGB CONC 30 g/dl (33.0-37.0); MEAN PLATELET VOLUME 9.2 fl (7.4-10.4); MONO # 1.1 K/mm3 (0.1-0.6); MONO % 9.2 % (1.7-9.3); PLATELET COUNT 291 K/mm3 (130-400); RED BLOOD COUNT 5.13 M/mm3 (4.10-5.30); REDCELL DISTRIBUTION WIDTH-CV 16.5 % (11.5-14.5)
[2023-11-24 15:22] LABS: PH 6.5 (5.0-8.5); URINE APPEARANCE CLEAR (CLEAR/HAZY); URINE BLOOD 2+ (NEGATIVE); URINE COLOR YELLOW (YELLOW); URINE GLUCOSE NEGATIVE (NEGATIVE); URINE KETONE NEGATIVE (NEGATIVE); URINE NITRATE NEGATIVE (NEGATIVE); URINE PROTEIN(semi-quant) NEGATIVE (NEGATIVE); URINE UROBILINOGEN 0.2 E.U/dL (0.2-1.0)
[2023-11-24 15:44] LABS: URINE WBC 0-2 /hpf (0-2)
[2023-11-24 15:45] LABS: URINE BACTERIA NONE SEEN /hpf (NONE SEEN)
[2023-11-24 15:46] LABS: ALBUMIN 3.9 g/dL (3.5-5.0); BILIRUBIN,TOTAL 0.4 mg/dL (0.2-1.2); CALCIUM 9.8 mg/dL (8.4-10.2); CREATININE, serum 1.69 mg/dL (0.57-1.11); POTASSIUM 4.1 mEq/L (3.5-4.5); TOTAL PROTEIN 7.3 g/dl (6.2-8.1)
[2023-11-24 20:04] VITALS: BP 129/82; PULSE 74
[2023-11-25] MEDS ORDERED: SALONPAS1 EACH TP (11:37)
== END 2023-11-24 20:04 | disposition home or self-care (01) ==
LOC: COL.ER 13:30
PROVIDERS: Physician Assistant
DX: M79.10 Myalgia, unspecified site (principal); R29.6 Repeated falls; I48.91 Unspecified atrial fibrillation; Z79.01 Long term (current) use of anticoagulants; Z87.891 Personal history of nicotine dependence
CPT/HCPCS: J7030

== ENCOUNTER 2023-11-25 02:14 | Inpatient (IN) | payer MEDICARE, MEDICAID ==
[2023-11-25] VITALS (9 sets, daily range): BP systolic 114–137; BP diastolic 62–96; PULSE 71–85; TEMP 97.7–98.8
[~2023-11-25] VITALS: Ht 172.7 cm; Wt 115.9 kg
[2023-11-25 04:04] LABS: BASO % 0.2 % (0.0-2.0); EOS % 0.3 % (0.0-4.0); GRAN # 8.7 K/mm3 (1.4-6.5); GRAN % 73.3 % (42.2-75.2); HEMATOCRIT 40.4 % (37.0-47.0); HEMOGLOBIN 12.3 g/dl (12.5-16.0); LYMPH # 1.9 K/mm3 (1.2-3.4); LYMPH % 15.9 % (20.0-51.0); MEAN CELL VOLUME 84 fl (80.0-100.0); MEAN CORPUSCULAR HEMOGLOBIN 26 pg (27-31); MEAN CORPUSCULAR HGB CONC 30 g/dl (33.0-37.0); MEAN PLATELET VOLUME 9.1 fl (7.4-10.4); MONO # 1.2 K/mm3 (0.1-0.6); PLATELET COUNT 244 K/mm3 (130-400); RED BLOOD COUNT 4.82 M/mm3 (4.10-5.30); REDCELL DISTRIBUTION WIDTH-CV 16.8 % (11.5-14.5)
[2023-11-25 04:05] LABS: INR 1.3 (0.8-3.0); PROTHROMBIN TIME 13.7 SECONDS (9.7-12.8)
[2023-11-25 04:24] LABS: ALBUMIN 3.6 g/dL (3.5-5.0); BILIRUBIN,TOTAL 0.6 mg/dL (0.2-1.2); CALCIUM 9.4 mg/dL (8.4-10.2); CREATININE, serum 1.89 mg/dL (0.57-1.11); POTASSIUM 3.9 mEq/L (3.5-4.5); TOTAL PROTEIN 6.7 g/dl (6.2-8.1)
[2023-11-25 04:30] LABS: TROPONIN-I 0.022 ng/mL (0.00-0.033)
[2023-11-25] MEDS ORDERED: LR 1,000 ML IV ONE (04:45)
[2023-11-25] MEDS ORDERED: Insulin Lispro (HumaLOG) SQ SCH (09:43)
[2023-11-25] MEDS ORDERED: Acetaminophen 325 MG TAB PO PRN (09:45)
[2023-11-25] MEDS ORDERED: LR 1,000 ML IV SCH (09:45)
[2023-11-25] MEDS ORDERED: Polyethylene Glycol 3350 17 GM PDS PO PRN (09:45)
--- NOTE | 2023-11-25 11:24 | NUR ---
gaming worker received consult for pt coming in 11/23-11/24 in the ER with re-occurring falls and not safe at home. YESIKA spoke with RN who reports pt was seen and brought back due to the falls at home. YESIKA called Dr. Nascimento's SW Analia to discuss pt. Analia is familiar with patient and has been working with her on [facility] placement. This is the only place she allowed to be looked at. Katianaibartolo states pt was seen by the PCP end of October. Pt is on the PD waiver. She reports pt has [facility] and was on a home care and palliative program, but PCP is not willing to put her on hospice until she is seen by Hasmukh Crawford, which is not yet scheduled. She reports pt does not have a DPOA-HC and her ex-, and daughter, Margie live in [place]. YESIKA called [facility] who confirm she has PT and alf services. PT saw pt on 11/18 and nursing did on 11/16 with no concerns for falls. YESIKA left a message with Director, Asim at [facility]. He later informed they have no rooms at this time. YESIKA met with pt to discuss discharge planning. She reports to live alone in [place]. She confirmed her phone number and PCP as [facility]. She does not have a DPOA-HC. She is independent with ADLS and uses a rolator, shower chair, and bed rails. She has no stairs at home. She confirmed her insurance as Medicare A/B and Medicaid. She uses a [facility] or Medicaid transport for attending appointments. She reports her friend, Marilyn assists her with organizing her home so she can go to [place]. YESIKA advised [facility] does not have appear to have any rooms per PCP YESIKA. Pt reports she has not started the process with them either. YESIKA provided the Medicare.gov list of local SNF's to review. YESIKA provided informatio on SNF, IPR, and LTC. Pt reports she cannot afford to private pay. She declined any information on going to LTC. She was interested and agreeable to a referral to IPR. YESIKA advised PT/OT will be in to assess her. She reports her legs being "wobbly" and does not recall what led to her multiple falls. She reports just wanting to have managed her apt until the lease was up in September, so she could then go to [place]. YESIKA advised she will review the therapist's reccomendations. She states she would just like to go home if she could not get rehab as she cannot private pay. YESIKA advised against this as she is reportedly not safe. YESIKA informed SHANKAR Garcia of the above need for PT/OT. YESIKA gaved IPR referral to [facility]. YESIKA was later informed pt is admitted to the medical floor. YESIKA spoke with Director Brandie who advised pt likely needs a psych screen if there are underlying cognition concerns as reported by therapy and PCP YESIKA. YESIKA informed Dr. Oscar Morrison for a capacity eval. Discharge Plan: IPR vs SNF
[2023-11-25] MEDS ORDERED: SALONPAS1 EACH TP (11:37)
--- NOTE | 2023-11-25 12:00 | NUR ---
PATIENT ARRIVED TO MEDICAL FLOOR AT APPOXIMATELY 1130. PATIENT ABLE TO STAND AND PIVOT TO BED. ALERT AND ORIENTED. TELEMETRY ON. ADMISSION INTAKE AND ASSESSMENT COMPLETE. PATIENT HAS EXTENSIVE BRUISING TO ALL EXTREMITIES. TO LEFT HIP, THERE IS EXCORIATION FROM PREVIOUS FALL AT HOME. ECCHYMOSIS TO BUTTOCKS. IV TO RIGHT HAND IS PATENT, CDI, WITH LR INFUSING PER MAR. VSS. PATIENT ASSISTED THIS RN IN COMPLETING MEDICATION REC. DENIES PAIN OR DISCOMFORT AT THIS TIME. THIS RN EDUCATED PATIENT TO USE CALL LIGHT WHEN NEEDING TO GET UP OUT OF BED. PATIENT AGREEABLE. FALL PRECAUTIONS IN PLACE. CALL LIGHT WITHIN REACH.
--- NOTE | 2023-11-25 13:59 | NUR ---
SW met with patient to discuss discharge planning. Patient is awake, alert and oriented. She states that she lives at home alone, is estranged from her daughter for over 7 years. Daughter lives in [place]. Patient voiced that she has been working with Dr. Marrero's office for assistance with placement due to being unsafe at home and having multiple falls. SW had talked with Attending, Dr. Morrison, regarding this patient. Dr. Morrison states patient is not in need of psych eval and states she is cancelling the IPR referral due to patient's physical decline and lack of assistance. SW discussed this recommendation with patient who is agreeable to SNF placement and potential for laborer marine terminal care. Discussed patient's insurance of Medicare and Medicaid covering cost of rehab and potential of prison care placement if indicated when she finishes rehab. Dr. Morrison stated she is discussing case with Dr. Marrero. Patient agreeable to multiple SNF referrals being faxed to local facilities. Discharge plan: SNF
[2023-11-25] MEDS ORDERED: Lidocaine 4% Topical Patch TP SCH (14:26)
--- NOTE | 2023-11-25 14:30 | NUR ---
YESIKA sent SNF referrals via secure email to [facility]. Sent referral via fax to [facility]. Discharge plan: SNF
[2023-11-25 14:46] LABS: COLLECTION METHOD CLEAN CATCH
[2023-11-25 14:54] LABS: PH 6.5 (5.0-8.5); URINE APPEARANCE CLEAR (CLEAR/HAZY); URINE BLOOD 3+ (NEGATIVE); URINE COLOR YELLOW (YELLOW); URINE GLUCOSE NEGATIVE (NEGATIVE); URINE KETONE NEGATIVE (NEGATIVE); URINE NITRATE NEGATIVE (NEGATIVE); URINE PROTEIN(semi-quant) NEGATIVE (NEGATIVE); URINE UROBILINOGEN 0.2 E.U/dL (0.2-1.0)
--- NOTE | 2023-11-25 15:37 | NUR ---
SW received call from Cece at [facility] declining patient for admission.
[2023-11-25] MEDS ORDERED: Magnesium Oxide 400 MG TAB PO SCH (17:00)
[2023-11-25] MEDS ORDERED: Carvedilol 6.25 MG TAB PO SCH (17:00)
[2023-11-25] MEDS ORDERED: Budesonide Neb Susp 0.5 MG/2 ML AMP IH SCH (19:00)
[2023-11-25] MEDS ORDERED: Formoterol Neb Soln 20 MCG/2 ML UD IH SCH (19:00)
--- NOTE | 2023-11-25 20:36 | NUR ---
PATIENT RESTING IN BED. REPORTING PAIN 9/10, GENERALIZED THROUGHOUT BODY, APPLIED VOLTERAN GEL ORDER, PATIENT HOWEVER WOULD LIKE TO WAIT TO TAKE ANY ORAL PAIN MEDICATION. CALL LIGHT IS WITHIN REACH. BED IS LOCKED AND IN LOW POSITION. ATTEMPTED TO REMOVE LIDOCAINE PATCH,HOWEVER PATIENT STATES IT HAS NOT YET BEEN ON FOR A FULL 12 HOURS.
[2023-11-25] MEDS ORDERED: Apixaban 5 MG TABLET PO SCH (21:00)
[2023-11-25] MEDS ORDERED: Famotidine 20 MG TAB PO SCH ×2 (21:00)
[2023-11-25] MEDS ORDERED: Atorvastatin 40 MG TAB PO SCH (21:00)
[2023-11-25] MEDS ORDERED: Mometasone/Formoterol 200/5 MCG MDI IH SCH (21:00)
[2023-11-26] VITALS (9 sets, daily range): BP systolic 102–130; BP diastolic 55–83; PULSE 68–76; TEMP 97.9–98.5
[2023-11-26 06:38] LABS: BASO % 0.2 % (0.0-2.0); EOS # 0.1 K/mm3 (0.0-0.7); EOS % 1.1 % (0.0-4.0); GRAN # 3.6 K/mm3 (1.4-6.5); GRAN % 58.4 % (42.2-75.2); HEMOGLOBIN 10.6 g/dl (12.5-16.0); LYMPH # 1.7 K/mm3 (1.2-3.4); LYMPH % 28.2 % (20.0-51.0); MEAN CELL VOLUME 83 fl (80.0-100.0); MEAN CORPUSCULAR HEMOGLOBIN 26 pg (27-31); MEAN CORPUSCULAR HGB CONC 31 g/dl (33.0-37.0); MEAN PLATELET VOLUME 9.3 fl (7.4-10.4); MONO # 0.7 K/mm3 (0.1-0.6); MONO % 11.9 % (1.7-9.3); PLATELET COUNT 229 K/mm3 (130-400); RED BLOOD COUNT 4.13 M/mm3 (4.10-5.30)
[2023-11-26 06:40] LABS: HEMATOCRIT 34.1 % (37.0-47.0)
[2023-11-26 06:52] LABS: CALCIUM 8.8 mg/dL (8.4-10.2); CREATININE, serum 1.13 mg/dL (0.57-1.11)
[2023-11-26] MEDS ORDERED: Dextrose (Glucose) 15 GM (4 x 3.75 GM) Chewable TABLET PACK PO PRN (07:30)
[2023-11-26] MEDS ORDERED: Glucagon 1 MG VIAL IM PRN (07:30)
[2023-11-26] MEDS ORDERED: Dextrose 50% Water 25 GM/50 ML SYRINGE IV PRN (07:30)
--- NOTE | 2023-11-26 07:31 | NUR ---
Bedside report received from SHANKAR Graham. Pt awake in bed with no complaints. Call light within reach and fall precautions in place.
[2023-11-26] MEDS ORDERED: DULoxetine 60 MG CAP PO SCH (09:00)
[2023-11-26] MEDS ORDERED: Fluticasone Nasal 50 MCG/Spray 16 GM BOTTLE NS SCH (09:00)
[2023-11-26] MEDS ORDERED: FLUoxetine 20 MG CAP PO SCH (09:00)
--- NOTE | 2023-11-26 09:04 | NUR ---
Pt awake in bed with no complaints. Shift assessment complete. VSS. Pt reports pain in Rt hand IV and bleeding noted around dressing. INT to Rt hand discontinued with tip intact, pt tolerated well with no complaints. Telemetry in place. Purple/yellow ecchymosis noted to pt BUE,BLE, and back. Pt rates general pain 4/10. Pt has no request at this time. Call light within reach and fall precautions in place.
--- NOTE | 2023-11-26 10:02 | NUR ---
[facility] student Rachell attempted x2 without success. This nurse started 22g INT to Rt hand x1 attempt. Pt tolerated well with no complaints.
--- NOTE | 2023-11-26 11:07 | NUR ---
UNSUCCESSFUL IV ATTEMPT X2 TO LEFT HAND AND RIGHT ARM.
--- NOTE | 2023-11-26 15:40 | NUR ---
Pranav at [facility] advised they can clinically accept patient when they have a bed, likely Thursday. Pranav did state they would require patient complete a DPOA-HC. YESIKA spoke with [facility] Director about consult given. YESIKA contacted [facility]or [facility] who advised they did not receive referral. YESIKA Lovett refaxed referral and also sent updates to [facility].
--- NOTE | 2023-11-26 22:43 | NUR ---
PATIENT RESTING IN BED. REPORTS PAIN IN BACK 8/10 BUT DENIES NEED FOR PAIN MEDICATION OR INTERVENTION AT THIS TIME. REPORTING ITCHING FROM ADHESIVE SURROUNDING HER IV. CALL LIGHT IS WITHIN REACH. BED IS LOCKED AND IN LOW POSITION.
[2023-11-27] VITALS (9 sets, daily range): BP systolic 124–149; BP diastolic 74–85; PULSE 71–99; TEMP 97.2–98.6
[2023-11-27 06:54] LABS: BASO % 0.2 % (0.0-2.0); EOS # 0.1 K/mm3 (0.0-0.7); EOS % 1.6 % (0.0-4.0); GRAN # 2.9 K/mm3 (1.4-6.5); GRAN % 57.8 % (42.2-75.2); HEMOGLOBIN 11.1 g/dl (12.5-16.0); LYMPH # 1.6 K/mm3 (1.2-3.4); LYMPH % 30.6 % (20.0-51.0); MEAN CELL VOLUME 82 fl (80.0-100.0); MEAN CORPUSCULAR HEMOGLOBIN 26 pg (27-31); MEAN CORPUSCULAR HGB CONC 32 g/dl (33.0-37.0); MEAN PLATELET VOLUME 8.9 fl (7.4-10.4); MONO # 0.5 K/mm3 (0.1-0.6); MONO % 9.4 % (1.7-9.3); PLATELET COUNT 221 K/mm3 (130-400); RED BLOOD COUNT 4.26 M/mm3 (4.10-5.30); REDCELL DISTRIBUTION WIDTH-CV 17.2 % (11.5-14.5)
[2023-11-27 06:55] LABS: HEMATOCRIT 34.8 % (37.0-47.0)
[2023-11-27 07:18] LABS: CALCIUM 8.5 mg/dL (8.4-10.2); CREATININE, serum 0.84 mg/dL (0.57-1.11)
--- NOTE | 2023-11-27 08:00 | NUR ---
Patient laying in bed, A&Ox4. VSS. NO IV access, doctor aware. Denies pain and discomfort. Call light within reach
--- NOTE | 2023-11-27 15:27 | NUR ---
Baby Counselor met with patient to notify her that both [facility] and [facility] have accepted her for a skilled stay. Patient advised she would prefer [facility]. SW also discussed completing a DPOA-HC which patient is agreeable to. Patient stated she wants to designate her daughter, Margie and ex , Miguel Ángel. SW assisted patient in completing the form then SW and RN provided witness signature. YESIKA placed a copy in chart then provided copy to patient. YESIKA contacted Mainor at [facility] who advised they can accept patient tomorrow but transport can only come at 0900. YESIKA updated RN and patient. YESIKA faxed updates, DPOA, and discharge orders to Mainor at [facility]. Discharge Plan: [facility] Thursday
--- NOTE | 2023-11-27 15:50 | NUR ---
Patient back to room 311 from ENDO. A&Ox4, drowsy. VSS. IV CDI, fluids by gravity. Reports discomfort in abdomen, warm blanket provided. Nurse oriented the patient to location, room and call light. Call light within reach. Bed alarm on
--- NOTE | 2023-11-27 20:30 | NUR ---
Initial shift assessment done-alert/oriented x4. VSS, sitting at side of bed, going to [facility] in the AM for rehab, bed alarm on- does call for assistance, fall protocol followed, tele on NSR, is ramdomly taking off her arm bands {fall and hospital name bands} also taking off socks etc,, now will put back on for the night?,,states she is having pain 8/10 to shoulder/knees, arms , toe, numerous sites,, will give norco as ordered at this time-states she doesnt know where her shoes,bra, and t shirt are--will call down to ER to see if they are there__
[2023-11-28 00:15] VITALS: BP_SYST 143
[2023-11-28 04:13] VITALS: BP 139/88; PULSE 75; TEMP 98
[2023-11-28 04:39] VITALS: BP_SYST 139
--- NOTE | 2023-11-28 05:45 | NUR ---
States having a headache and requesting tylenol, given as ordered, Did call ER about her clothes she said are missing, they will talk to security to see if they have them-
--- NOTE | 2023-11-28 06:50 | NUR ---
REPORT RECEIVED FROM BASSAM CHAPARRO. PT SITTING SIDE OF BED. PT IS ON RA. PT IS SR ON TELE. PT IS AXOX4. PT STATES SHE SHOULD BE LEAVING AT [address] [facility]. PT HAS CALL LIGHT WITHIN REACH AND INSTRUCTED TO CALL WITH ALL NEEDS. PT IN FALL PRECAUTIONS AND BEDALARM ACTIVE.
[2023-11-28 07:00] LABS: BASO % 0.1 % (0.0-2.0); EOS # 0.1 K/mm3 (0.0-0.7); EOS % 1.2 % (0.0-4.0); GRAN # 5.1 K/mm3 (1.4-6.5); GRAN % 68.5 % (42.2-75.2); HEMOGLOBIN 11.6 g/dl (12.5-16.0); LYMPH # 1.5 K/mm3 (1.2-3.4); LYMPH % 20.2 % (20.0-51.0); MEAN CELL VOLUME 82 fl (80.0-100.0); MEAN CORPUSCULAR HEMOGLOBIN 26 pg (27-31); MEAN CORPUSCULAR HGB CONC 32 g/dl (33.0-37.0); MEAN PLATELET VOLUME 9.2 fl (7.4-10.4); MONO # 0.7 K/mm3 (0.1-0.6); MONO % 9.7 % (1.7-9.3); PLATELET COUNT 246 K/mm3 (130-400); REDCELL DISTRIBUTION WIDTH-CV 17.2 % (11.5-14.5)
[2023-11-28 07:13] LABS: HEMATOCRIT 36.8 % (37.0-47.0)
[2023-11-28 07:21] LABS: CALCIUM 9.3 mg/dL (8.4-10.2); CREATININE, serum 0.88 mg/dL (0.57-1.11); POTASSIUM 4.3 mEq/L (3.5-4.5)
--- NOTE | 2023-11-28 08:25 | NUR ---
Patient stable for discharge to [facility] today. YESIKA called and spoke with staff at [facility] who confirmed they are prepared to accept patient today and transport confirmed for 0900. SW met with patient to review Medicare IM form. Patient voiced understanding and is in agreement with discharge. Patient signed form, original on chart, copy to patient. Orders and clinical updates faxed to [facility]. Discharge plan: [facility]
[2023-11-28] MEDS ORDERED: NORCO 325 MG-51 TAB PO (08:58)
[2023-11-28 09:00] VITALS: BP_SYST 139
[2023-11-28] MEDS ORDERED: KLONOPIN 0.5MG0.5 MG PO (09:07)
[2023-11-28] MEDS ORDERED: clonazePAM 0.5 MG TAB PO ONE (09:15)
--- NOTE | 2023-11-28 09:24 | NUR ---
729- NOTIFIED OF TRANSPORT SCHEDULED FOR 0900. STATES HE WILL PLACE ORDERS PRIOR. 845-REPORT CALLED TO [facility]. ALL QUESTIONS ANSWERED. 899- TALKING WITH PT ABOUT MED CHANGES. PLACED ORDER FOR ONE TIME KLONAZEPAM TO BE GIVEN RIGHT NOW BEFORE DISCHARGE. TRANSPORT HERE IN FOOTE WAITING. 909-PT DISCHARGE TO [facility]. PACKET GIVEN TO TRANSPORT.
== END 2023-11-28 09:10 | DRG 683 ==
LOC: COL.ER 02:14 → MEDICAL 09:42
PROVIDERS: Emergency Medicine; Physician Assistant; ADMIT Internal Medicine
DX: N17.9 Acute kidney failure, unspecified (principal); E87.20 Acidosis, unspecified; N18.9 Chronic kidney disease, unspecified; R31.9 Hematuria, unspecified; D72.829 Elevated white blood cell count, unspecified; R53.81 Other malaise; M19.90 Unspecified osteoarthritis, unspecified site; E83.42 Hypomagnesemia; I10 Essential (primary) hypertension; E78.5 Hyperlipidemia, unspecified; I48.0 Paroxysmal atrial fibrillation; I35.1 Nonrheumatic aortic (valve) insufficiency; E11.9 Type 2 diabetes mellitus without complications; Z79.4 Long term (current) use of insulin; C80.1 Malignant (primary) neoplasm, unspecified; K21.9 Gastro-esophageal reflux disease without esophagitis; K58.9 Irritable bowel syndrome, unspecified; K31.84 Gastroparesis; M79.7 Fibromyalgia; G89.29 Other chronic pain; F32.A Depression, unspecified
CPT/HCPCS: J7120

== ENCOUNTER 2024-01-09 11:55 | Observation (INO) | payer MEDICARE, MEDICAID ==
[~2024-01-09] VITALS: Ht 175.3 cm; Wt 109.0 kg
[~2024-01-09 11:55] MED LIST changes: +KLONOPIN 0.5MG0.5 MG PO; +SALONPAS1 EACH TP
[2024-01-09] MEDS ORDERED: NS 1,000 ML IV ONE (12:15)
[2024-01-09 12:52] LABS: BASO % 0.3 % (0.0-2.0); EOS # 0.1 K/mm3 (0.0-0.7); EOS % 0.8 % (0.0-4.0); GRAN # 7.2 K/mm3 (1.4-6.5); GRAN % 66.8 % (42.2-75.2); HEMATOCRIT 40.8 % (37.0-47.0); HEMOGLOBIN 13.4 g/dl (12.5-16.0); LYMPH # 2.2 K/mm3 (1.2-3.4); LYMPH % 20.7 % (20.0-51.0); MEAN CELL VOLUME 83 fl (80.0-100.0); MEAN CORPUSCULAR HEMOGLOBIN 27 pg (27-31); MEAN CORPUSCULAR HGB CONC 33 g/dl (33.0-37.0); MEAN PLATELET VOLUME 9.3 fl (7.4-10.4); MONO # 1.2 K/mm3 (0.1-0.6); PLATELET COUNT 255 K/mm3 (130-400); RED BLOOD COUNT 4.89 M/mm3 (4.10-5.30); REDCELL DISTRIBUTION WIDTH-CV 18.5 % (11.5-14.5)
[2024-01-09 13:07] LABS: INR 1.7 (0.8-3.0); PROTHROMBIN TIME 18.6 SECONDS (9.7-12.8)
[2024-01-09 13:08] LABS: ALBUMIN 3.7 g/dL (3.5-5.0); BILIRUBIN,TOTAL 0.8 mg/dL (0.2-1.2); CALCIUM 10.1 mg/dL (8.4-10.2); CREATININE, serum 1.6 mg/dL (0.57-1.11)
[2024-01-09 13:21] LABS: TROPONIN-I 0.034 ng/mL (0.00-0.033)
[2024-01-09] MEDS ORDERED: MAG-OX 400400 MG/TAB PO (13:53)
[2024-01-09] MEDS ORDERED: NORCO 325 MG-7.1 TAB PO (13:56)
[2024-01-09] MEDS ORDERED: DEMADEX5 MG PO (13:57)
[2024-01-09 14:05] LABS: COLLECTION METHOD CLEAN CATCH
[2024-01-09 14:15] LABS: URINE APPEARANCE CLOUDY (CLEAR/HAZY); URINE BLOOD 3+ (NEGATIVE); URINE COLOR YELLOW (YELLOW); URINE GLUCOSE NEGATIVE (NEGATIVE); URINE KETONE TRACE (NEGATIVE); URINE NITRATE NEGATIVE (NEGATIVE); URINE PROTEIN(semi-quant) TRACE (NEGATIVE)
[2024-01-09 14:29] LABS: URINE BACTERIA MODERATE /hpf (NONE SEEN); URINE RBC 20-50 /hpf (0-2)
[2024-01-09] MEDS ORDERED: cefTRIAXone 1 G in Water For Injection,Sterile 10 ML IV ONE (14:45)
[2024-01-09] MEDS ORDERED: KLONOPIN WAFE0.25 MG PO (16:17)
[2024-01-09] MEDS ORDERED: TAMBOCOR 1100 MG/TAB PO (16:21)
[2024-01-09 16:29] VITALS: BP_SYST 129
[2024-01-09] MEDS ORDERED: Carvedilol 6.25 MG TAB PO SCH (17:00)
--- NOTE | 2024-01-09 17:08 | NUR ---
YESIKA received call from Desirae from ED about patient need support with waitlist status for [facility], was informed patient just discharged from [facility] and had fall in ED and requesting to return. YESIKA contacted Mainor with [facility], she informed SW to send over referral if patient is admitted to hospital Patient was pending admission. YESIKA will leave note for Thursday team to follow up and send new referral to [facility] on behalf of patient for continued care.
[2024-01-09 17:18] VITALS: BP_SYST 129
[2024-01-09 17:34] VITALS: BP 134/85; PULSE 93; TEMP 97.8
--- NOTE | 2024-01-09 18:12 | NUR ---
Patient all admitted into room 346. Medication list updated and reviewed with patient and her list she has on IPAD. made aware of patient arrival. Admission assessment completed, upon completing suicide questions-patient reports a past history of suicidal ideation, but no current feelings or plans. She reports feeling well and would not have come to the hospital if she did. Int. Patient weak on her feet with walker. Patient high fall risk protocol completed with bed alarms on. call light in reach.
[2024-01-09] MEDS ORDERED: Loperamide 2 MG CAP PO PRN (19:00)
[2024-01-09] MEDS ORDERED: NS 1,000 ML IV SCH (19:30)
[2024-01-09 20:00] VITALS: BP 111/71; PULSE 83; TEMP 99.2
--- NOTE | 2024-01-09 20:00 | NUR ---
PATIENT IS A&O. VSS. PATIENT REPORTS DISCHARGING FROM [facility] 7 DAYS AGO AND HAS BEEN FALLING AT HOME. NOTED LARGE BRUISE TO RIGHT BUTTOCK/FLANK FROM FALL AT HOME. ALSO NOTED MULTIPLE SCATTERED BRUISES TO BLE FROM FALLS AT HOME. 1-2 ASSIST WITH WALKER. PT/OT CONSULTED. PATIENT NEEDS PERM. NH PLACEMENT. HEAD TO TOE ASSESSMENT COMPLETE. DNR STATUS. IV FLUIDS INFUSING VIA PUMP INTO RIGHT WRIST. PATIENT HAS SIGNIFICANT HX OF PSYCH MEDS & CHRONIC PAIN, SEE RXM. PATIENT ALSO ON IV ABX FOR POSITIVE UTI. PATIENT RESTING UP IN BED WITH CALL LIGHT IN REACH. BED ALARM ON.
[2024-01-09] MEDS ORDERED: Atorvastatin 40 MG TAB PO SCH (21:00)
[2024-01-09] MEDS ORDERED: Apixaban 5 MG TABLET PO SCH (21:00)
[2024-01-09] MEDS ORDERED: Magnesium Oxide 400 MG TAB PO SCH (21:00)
[2024-01-10] VITALS (13 sets, daily range): BP systolic 107–166; BP diastolic 73–90; PULSE 71–88; TEMP 97–98.6
[2024-01-10] MEDS ORDERED: Morphine 4 MG/ML VIAL IV PRN (01:15)
[2024-01-10] MEDS ORDERED: Acetaminophen 500 MG TAB PO PRN (01:15)
[2024-01-10 05:40] LABS: BASO % 0.1 % (0.0-2.0); EOS # 0.1 K/mm3 (0.0-0.7); EOS % 1.6 % (0.0-4.0); GRAN % 58.2 % (42.2-75.2); LYMPH # 2.4 K/mm3 (1.2-3.4); LYMPH % 27.3 % (20.0-51.0); MEAN CORPUSCULAR HGB CONC 33 g/dl (33.0-37.0); MEAN PLATELET VOLUME 9.2 fl (7.4-10.4); MONO # 1.1 K/mm3 (0.1-0.6); MONO % 12.5 % (1.7-9.3); PLATELET COUNT 219 K/mm3 (130-400); RED BLOOD COUNT 3.96 M/mm3 (4.10-5.30); REDCELL DISTRIBUTION WIDTH-CV 18.5 % (11.5-14.5)
[2024-01-10 05:43] LABS: HEMATOCRIT 33.2 % (37.0-47.0); HEMOGLOBIN 10.9 g/dl (12.5-16.0); MEAN CELL VOLUME 84 fl (80.0-100.0); MEAN CORPUSCULAR HEMOGLOBIN 28 pg (27-31)
[2024-01-10 05:53] LABS: CREATININE, serum 1.32 mg/dL (0.57-1.11); MAGNESIUM 1.4 mg/dL (1.6-2.6); POTASSIUM 3.5 mEq/L (3.5-4.5)
[2024-01-10] MEDS ORDERED: Magnesium Sulfate 4% 50 ML IV ONE (07:45)
--- NOTE | 2024-01-10 08:00 | NUR ---
Patient A&OX4. VSS. IV CDI. Denies pain and discomfort. Call light within reach. Bed alarm on
[2024-01-10] MEDS ORDERED: Dextrose (Glucose) 15 GM (4 x 3.75 GM) Chewable TABLET PACK PO PRN (09:00)
[2024-01-10] MEDS ORDERED: Dextrose 50% Water 25 GM/50 ML SYRINGE IV PRN (09:00)
[2024-01-10] MEDS ORDERED: Glucagon 1 MG VIAL IM PRN (09:00)
[2024-01-10] MEDS ORDERED: FLUoxetine 20 MG CAP PO SCH (09:00)
--- NOTE | 2024-01-10 09:27 | NUR ---
interior surface insulation worker met with pt to discuss discharge planning. She reports to live alone in [place], but recently discharged from [facility]. Pt reports her PCP YESIKA Helms has been assisting with getting her into [facility]. Pt reports last she was aware, they were waiting on a bed and she is on the waitlist. Pt reports to use Dr. Marrero for PCP needs and obtains medications from [facility] with no issues. She verified to have Medicare A/B and Medicaid isnurance. Pt states she is typically independent with ADLS and uses a rolator for DME. She confirmed her DPOA-HC on file listing Daughter, Shannan and ex-, Miguel Ángel. Pt immediately reports that someone called Margie and stated the number is not working. She does not want either DPOA-HC called unless there is an emergency. She reports to have [facility] for private duty. Pt states her insurance covers private duty and she gets [employer] meals delivered. SW discussed options for discharge as pt is in observation. Pt reports she has a cat at home and is not agreeable to going to LTC. She requests Assisted Living, but SW informed her of the many barriers unless this was pre-arranged. Pt voices agreement with return home with HH and private duty and will continue working to arrange [place]. PT/OT Pending YESIKA spoke with BUNNY Pierce at [facility] who has no recollection of pt or seeing her name on their list. She reports that she cannot do anything today and her regional and other staff need to be involved and complete assessments. YESIKA informed SHANKAR Vasquez of the above and likely discharge plan. YESIKA faxed updates to [facility]. Discharge Plan: home with HH and private duty
--- NOTE | 2024-01-10 10:41 | NUR ---
YESIKA faxed updates to [facility]. YESIKA spoke with PT Adenike who reports Assisted Living would be best for pt, but she ambulated very well and only took one break when walking. Discharge Plan: home with [facility] private duty
[2024-01-10] MEDS ORDERED: Insulin Lispro (HumaLOG) SQ SCH (12:00)
[2024-01-11 01:00] VITALS: BP_SYST 115
[2024-01-11 03:50] VITALS: BP 111/66; PULSE 75; TEMP 97.6
[2024-01-11 04:15] VITALS: BP_SYST 111
[2024-01-11 06:33] LABS: BASO % 0.3 % (0.0-2.0); EOS # 0.2 K/mm3 (0.0-0.7); EOS % 2.6 % (0.0-4.0); GRAN # 3.4 K/mm3 (1.4-6.5); GRAN % 55.5 % (42.2-75.2); HEMOGLOBIN 10.4 g/dl (12.5-16.0); LYMPH # 1.8 K/mm3 (1.2-3.4); LYMPH % 28.8 % (20.0-51.0); MEAN CELL VOLUME 82 fl (80.0-100.0); MEAN CORPUSCULAR HEMOGLOBIN 27 pg (27-31); MEAN CORPUSCULAR HGB CONC 33 g/dl (33.0-37.0); MEAN PLATELET VOLUME 9.3 fl (7.4-10.4); MONO # 0.8 K/mm3 (0.1-0.6); MONO % 12.5 % (1.7-9.3); PLATELET COUNT 223 K/mm3 (130-400); RED BLOOD COUNT 3.86 M/mm3 (4.10-5.30); REDCELL DISTRIBUTION WIDTH-CV 18.5 % (11.5-14.5)
[2024-01-11 06:49] LABS: HEMATOCRIT 31.7 % (37.0-47.0)
[2024-01-11 06:54] LABS: CALCIUM 9.2 mg/dL (8.4-10.2); CREATININE, serum 0.99 mg/dL (0.57-1.11); MAGNESIUM 1.8 mg/dL (1.6-2.6); POTASSIUM 3.6 mEq/L (3.5-4.5)
--- NOTE | 2024-01-11 08:00 | NUR ---
PATIENT UP USING THE RESTROOM. ASSISTED PATIENT BACK TO BED. HEAD TO TOE ASSESSMENT COMPLETED. MORNING MEDS GIVEN. PT REPORTS PAIN IN THE RIGHT HIP, GROIN, LOW BACK. PAIN MED GIVEN. PT PERFORMED ORAL CARE. BED IN LOWEST POSITION, CALL LIGHT IN REACH, BED ALARM ON.
[2024-01-11 08:14] VITALS: BP 124/76; PULSE 80; TEMP 97.3
[2024-01-11 09:00] VITALS: BP_SYST 95
[2024-01-11] MEDS ORDERED: DULoxetine 60 MG CAP PO SCH (09:00)
[2024-01-11] MEDS ORDERED: oxyCODONE 5 MG TAB PO PRN (11:15)
[2024-01-11 11:19] VITALS: BP 95/54; PULSE 73; TEMP 97.8
--- NOTE | 2024-01-11 13:12 | NUR ---
DISCUSSED DISCHARGE PAPERWORK WITH PATIENT. DC'D IV. PATIENT ESCORTED TO PATIENT ENTRANCE VIA WHEELCHAIR WITH PERSONAL BELONGINGS.
--- NOTE | 2024-01-11 16:12 | NUR ---
workers compensation examiner attended interdisciplinary clinical rounding with Dr. Munoz. Patient was adamant that she would like to go home with her continued home health [facility]. SW discussed [place] with patient whom reported she is on the waitlist for [facility] and did not want to go to LTC as she wanted to be able to bring her cat with her and she could not do so in LTC. Patient chooses to return home with home health and home care services. YESIKA faxed clinical updates and discharge orders to [facility] YESIKA confirmed with [facility] they are currently providing services for patient in her home and needed orders. YESIKA faxed these orders directly before calling [facility]. DIscharge plan: Home with [facility]
== END 2024-01-11 12:43 | disposition home health service (06) ==
LOC: COL.ER 11:55 → SURG 13:22
PROVIDERS: Emergency Medicine; Physician Assistant; ADMIT Internal Medicine
DX: R53.1 Weakness (principal); R53.81 Other malaise; S30.0XXA Contusion of lower back and pelvis, initial encounter; E11.22 Type 2 diabetes mellitus with diabetic chronic kidney disease; I13.0 Hypertensive heart and chronic kidney disease with heart failure and stage 1 through stage 4 chronic kidney disease, or unspecified chronic kidney disease; N18.30 Chronic kidney disease, stage 3 unspecified; I50.9 Heart failure, unspecified; N17.9 Acute kidney failure, unspecified; D63.1 Anemia in chronic kidney disease; I48.0 Paroxysmal atrial fibrillation; D64.9 Anemia, unspecified; E87.6 Hypokalemia; E83.42 Hypomagnesemia; I21.4 Non-ST elevation (NSTEMI) myocardial infarction; C73 Malignant neoplasm of thyroid gland; E78.5 Hyperlipidemia, unspecified; K21.9 Gastro-esophageal reflux disease without esophagitis; K58.9 Irritable bowel syndrome, unspecified; K31.84 Gastroparesis; G89.29 Other chronic pain; F32.A Depression, unspecified; M79.7 Fibromyalgia; Z87.891 Personal history of nicotine dependence; W19.XXXA Unspecified fall, initial encounter; Y93.9 Activity, unspecified; Y92.009 Unspecified place in unspecified non-institutional (private) residence as the place of occurrence of the external cause; Z79.01 Long term (current) use of anticoagulants; Z86.73 Personal history of transient ischemic attack (TIA), and cerebral infarction without residual deficits; Z91.81 History of falling; Z79.84 Long term (current) use of oral hypoglycemic drugs; Z79.899 Other long term (current) drug therapy
CPT/HCPCS: G0378; J0696; J1815; J2270; J3475; J7030